=== PATIENT | male | born 1945 | race Caucasian/White ===

== ENCOUNTER → 2019-10-28 13:59 | Outpatient (CLI) | payer MEDICARE, SELFPAY ==
--- NOTE | ~2019-10-28 | XR_ITS ---
XR foot LT min 3V DATE: 10/28/2019 14:28 INDICATION: Left great toe pain following injury TECHNIQUE: 4 views COMPARISON: None FINDINGS: There is a nondisplaced transverse fracture at the junction of the metaphysis and proximal shaft of the distal phalanx of the great toe. There is a probable old fracture at the metaphysis of the proximal phalanx of the fifth toe; recommen d clinical correlation for point tenderness at the proximal phalanx to exclude subtle nondisplaced ac [place] fracture. No other fracture or dislocation is evident. There is mild plantar and more prominent posterior calcaneal enthesopathy. Anterior and posterior tibial artery calcifications. IMPRESSION: Recent transverse nondisplaced fracture of the distal phalanx of the great toe Probable old fracture of the proximal phalanx of the fifth toe Osteopenia Calcaneal enthesopathy Reviewed, dictated and finalized at location B. IMPRESSION: Recent transverse nondisplaced fracture of the distal phalanx of th e great toe Probable old fracture of the proximal phalanx of the fifth toe Osteopenia Calcaneal enthesopathy
== END ==
PROVIDERS: PCP Family Medicine Adolescent Medicine; Visit Provider Physician Assistant
DX: M85.872 Other specified disorders of bone density and structure, left ankle and foot (principal); M77.32 Calcaneal spur, left foot
CPT/HCPCS: 73630

== ENCOUNTER 2021-03-01 16:30 | Outpatient (CLI) | payer MEDICARE, SELFPAY ==
[2021-03-01 17:23] LABS: Hematocrit 39.7 % (42.0-52.0); Hemoglobin 12.6 g/dL (14.0-18.0); Mean Corpuscular HGB Conc 31.7 g/dl (32-36); Mean Corpuscular Hemoglobin 30.7 pg (26-34); Mean Corpuscular Volume 96.6 fl (80-100); Mean Platelet Volume 10.5 fl (7.4-10.4); Platelet Count Result 305 k/mm3 (150-375); Red Blood Count 4.11 M/mm3 (4.6-6.20); Red Cell Distribution Width 14.9 % (11.5-14.5); White Blood Count 10.8 K/mm3 (4.5-10.0)
[2021-03-01 17:40] LABS: CRP < 0.5 mg/dL (<1.0)
[2021-03-01 18:45] LABS: Erythrocyte Sedimentation Rate 21 mm/hr (0-20)
== END 2021-03-01 16:31 | disposition home or self-care (01) ==
PROVIDERS: PCP Family Medicine Adolescent Medicine; Visit Provider Orthopaedic Surgery
DX: M25.461 Effusion, right knee (principal)
CPT/HCPCS: 36415; 85027; 85652; 86140

== ENCOUNTER 2021-03-01 17:27 | Outpatient (NON) | payer MEDICARE, SELFPAY ==
[2021-03-01 22:06] LABS: Source Synovial Fluid Synovial fluid
[2021-03-01 22:07] LABS: Appearance Synovial Fluid Hazy (Clear); Color Synovial Fluid Red (Colorless)
[2021-03-01 22:08] LABS: Lymphocytes Synovial Fluid 82 %; Macrophages Synovial Fluid 1 %; Monocytes Synovial Fluid 12 %; Neutrophils Synovial Fluid 5 % (0-25); Nucleated Cell Synovial Fluid 571 /uL (0-200); RBC Synovial Fluid 11703 /uL (0-0)
== END 2021-03-01 17:28 | disposition home or self-care (01) ==
PROVIDERS: PCP Family Medicine Adolescent Medicine; Visit Provider Orthopaedic Surgery
DX: M25.461 Effusion, right knee (principal)
CPT/HCPCS: 36415; 85027; 85652; 86140; 87070; 87075; 87102; 87205; 87206; 89051

== ENCOUNTER 2021-03-23 12:23 | Outpatient (CLI) | payer MEDICARE, SELFPAY ==
--- NOTE | ~2021-03-23 | MR_ITS ---
EXAMINATION: MR thoracic spine wo con DATE: 03/23/2021 14:13 INDICATION: Bilateral numbness and distal weakness of legs. TECHNIQUE: Magnetic resonance imaging (MRI) of the thoracic spine was performed without intravenous c ontrast. Sagittal localizer T1-weighted FSE of the cervical spine was obtained. Thoracic spine sequen fabiola included sagittal T2-weighted FSE, sagittal T1-weighted FSE, sagittal T2-weighted FS FSE, and axi al T2-weighted FSE. COMPARISON: Chest 2 views 03/02/2011 FINDINGS: There is kyphosis of thoracic spine. There is mild chronic anterior wedging of T7 and T8 ve rtebral bodies. There is 2 mm anterolisthesis of T1 on T2. Intervertebral disc heights are normal. Th ere are disc calcifications at T7-T8. At T9-T10, there is a left central protrusion with mild central canal stenosis. There is multilevel mild facet joint osteoarthritis. At T5-T6 on the left, there is severe facet joint osteoarthritis. There is mild right neural foraminal stenosis at T2-T3 and moderat e left neural foraminal stenosis at T5-T6. The spinal cord signal intensity is normal. IMPRESSION: 1. Mild thoracic spondylosis. Reviewed, dictated and finalized at location A. EL KILN FIRER
--- NOTE | ~2021-03-23 | MR_ITS ---
. EXAMINATION: MR lumbar spine wo con DATE: 03/23/2021 14:13 INDICATION: Bilateral numbness and distal weakness of legs. TECHNIQUE: Magnetic resonance imaging (MRI) of the lumbar spine was performed without intravenous con trast. Sequences included sagittal T2-weighted FSE, sagittal T2-weighted FS FSE, sagittal T1-weighted FSE, and axial T2-weighted FSE. COMPARISON: None FINDINGS: There is 7 degrees dextrocurvature of thoracic lumbar spine. There is 3 mm retrolisthesis o f L1 on L2 and 5 mm retrolisthesis of L2 on L3. Vertebral body heights are normal. There is moderatel y decreased disc height at L1-L2, severely decreased disc height at L2-L3, and mildly decreased disc height at L3-L4 with endplate remodeling. The distal spinal cord signal intensity is normal. The conu s medullaris is at T12. The following disc levels are specifically discussed: L1-L2: The disc is bulging. There is mild right and moderate left facet joint osteoarthritis. There i s mild bilateral neural foraminal stenosis. There is mild central canal stenosis. L2-L3: The disc is bulging and has an annular fissure. There is moderate and severe left facet joint osteoarthritis. There is moderate bilateral neural foraminal stenosis. There is mild central canal st enosis. L3-L4: The disc is bulging and has an annular fissure. There is severe bilateral facet joint osteoart hritis. There is moderate bilateral neural foraminal stenosis. There is mild central canal stenosis. L4-L5: The disc is bulging and has an annular fissure. There is moderate bilateral facet joint osteoa rthritis. There is mild bilateral neural foraminal stenosis. There is mild central canal stenosis. L5-S1: The disc is bulging and has an annular fissure. There is severe bilateral facet joint osteoart hritis. There is mild lateral neural foraminal stenosis. There is no central canal stenosis. IMPRESSION: 1. Severe lumbar spondylosis. Reviewed, dictated and finalized at location A. 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
--- NOTE | ~2021-03-23 | MR_ITS ---
EXAMINATION: MR cervical spine wo con DATE: 03/23/2021 14:13 INDICATION: Bilateral numbness and distal weakness in the legs. TECHNIQUE: Magnetic resonance imaging (MRI) of the cervical spine was performed without intravenous c ontrast. Sequences included sagittal T2-weighted FSE, sagittal T2-weighted FS FSE, sagittal T1-weight ed FSE, axial MERGE, and axial T2-weighted FSE. COMPARISON: None FINDINGS: There is 2 mm retrolisthesis of C4 on C5 and 2 mm anterolisthesis of C5 on C6. Vertebral velasquez dy heights are normal. There is mildly decreased disc height at C4-C5, C5-C6, C6-C7, and C7-T1. The s lena cord signal intensity is normal. The following disc levels are specifically discussed: C2-C3: There is a central protrusion. There is no uncovertebral joint osteoarthritis. There is severe bilateral facet joint osteoarthritis. There is mild bilateral neural foraminal stenosis. There is no central canal stenosis. C3-C4: The disc is bulging. There is mild right and moderate left uncovertebral joint osteoarthritis. There is moderate right and severe left facet joint osteoarthritis. There is mild right and moderate left neural foraminal stenosis. There is mild central canal stenosis. C4-C5: The disc is bulging. There is severe bilateral uncovertebral joint osteoarthritis. There is se pramod bilateral facet joint osteoarthritis. There is moderate bilateral neural foraminal stenosis. The re is moderate central canal stenosis with ventral and dorsal indentation of the spinal cord. C5-C6: The disc is bulging. There is severe bilateral uncovertebral joint osteoarthritis. There is se pramod bilateral facet joint osteoarthritis. There is mild bilateral neural foraminal stenosis. There i s mild central canal stenosis. C6-C7: The disc is bulging. There is mild bilateral uncovertebral joint osteoarthritis. There is lamont re bilateral facet joint osteoarthritis. There is mild bilateral neural foraminal stenosis. There is mild central canal stenosis. C7-T1: There is a central protrusion. There is no uncovertebral joint osteoarthritis. There is severe right and mild left facet joint osteoarthritis. There is mild right neural foraminal stenosis. There is no central canal stenosis. IMPRESSION: 1. Moderate cervical spondylosis. Reviewed, dictated and finalized at location A. 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
== END 2021-03-23 12:24 | disposition home or self-care (01) ==
PROVIDERS: PCP Family Medicine Adolescent Medicine; Visit Provider Orthopaedic Surgery
DX: R20.8 Other disturbances of skin sensation (principal); R53.1 Weakness; M47.894 Other spondylosis, thoracic region; M47.896 Other spondylosis, lumbar region; M47.892 Other spondylosis, cervical region
CPT/HCPCS: 72141; 72146; 72148

== ENCOUNTER 2022-02-17 15:59 | Outpatient (CLI) | payer MEDICARE, SELFPAY ==
[2022-02-17 16:17] LABS: Hemoglobin 11.4 g/dL (14.0-18.0); Immature Reticulocyte Fraction 21.2 % (3.0-15.9); Mean Corpuscular HGB Conc 31.7 g/dl (32-36); Mean Corpuscular Hemoglobin 30.3 pg (26-34); Mean Corpuscular Volume 95.7 fl (80-100); Mean Platelet Volume 9.6 fl (7.4-10.4); Platelet Count Result 363 k/mm3 (150-375); Red Blood Count 3.76 M/mm3 (4.6-6.20); Red Cell Distribution Width 16.3 % (11.5-14.5); Reticulocyte Hemoglobin Conten 30.7 pg (28.2-35.7); Reticulocyte Percent 1.79 % (0.7-4.3); Reticulocytes Absolute 0.07 B/L (32.2-175.7); White Blood Count 11.6 K/mm3 (4.5-10.0)
[2022-02-17 17:00] LABS: Alanine Aminotransferase 51 U/L (6-50); Albumin Level 3.9 g/dL (3.5-5.1); Alkaline Phosphatase 151 U/L (38-126); Anion Gap 9 mmol/L (8-16); Aspartate Amino Transferase 85 U/L (17-59); Bilirubin,Total 0.5 mg/dL (0.2-1.3); Blood Urea Nitrogen 23 mg/dL (9-20); Calcium 8.6 mg/dL (8.4-10.2); Carbon Dioxide 30 mmol/L (22-30); Chloride 97 mmol/L (98-107); Estimated Glomerular Filt Rate 46; Glucose 112 mg/dL (65-110); Potassium 4.3 mmol/L (3.4-5.0); Sodium 136 mmol/L (137-145)
[2022-02-17 17:02] LABS: Iron 39 ug/dL (49-181)
[2022-02-17 17:32] LABS: Percent Iron Saturation 14 % (20-50)
[2022-02-17 18:19] LABS: Folic Acid 6.7 ng/mL (2.76->20)
[2022-02-21 08:07] LABS: Methylmalonic Acid 339 nmol/L (87-318)
== END 2022-02-17 16:00 | disposition home or self-care (01) ==
PROVIDERS: PCP Family Medicine Adolescent Medicine; Visit Provider Internal Medicine Hematology & Oncology
DX: D64.9 Anemia, unspecified (principal)
CPT/HCPCS: 36415; 80053; 82607; 82728; 82746; 83540; 83550; 83921; 84238; 85027; 85046

== ENCOUNTER 2022-06-28 10:24 | Outpatient (CLI) | payer MEDICARE, SELFPAY ==
[2022-06-28 10:41] LABS: Basophils Absolute Auto 0.1 K/mm3 (0.0-0.1); Basophils Percent Auto 0.5 % (0.2-1.2); Eosinophils Absolute Auto 0.1 K/mm3 (0-0.3); Eosinophils Percent Auto 1.2 % (0-4.4); Hematocrit 36.7 % (42.0-52.0); Hemoglobin 11.5 g/dL (14.0-18.0); Immature Granulocyte Absolute 0.03 K/mm3 (0.00-0.031); Immature Granulocyte Percent A 0.3 % (0-0.5); Lymphocytes Absolute Auto 1.66 K/mm3 (0.9-3.2); Lymphocytes Percent Auto 18.1 % (18.3-44.2); Mean Corpuscular HGB Conc 31.3 g/dl (32-36); Mean Corpuscular Hemoglobin 30.4 pg (26-34); Mean Corpuscular Volume 97.1 fl (80-100); Monocytes Absolute Auto 0.9 K/mm3 (0.1-0.6); Monocytes Percent Auto 9.8 % (2.6-8.5); Neutrophils Absolute Auto 6.4 K/mm3 (1.3-6.7); Neutrophils Percent Auto 70.1 % (45.5-73.1); Platelet Count Result 247 k/mm3 (150-375); Red Blood Count 3.78 M/mm3 (4.6-6.20); Red Cell Distribution Width 15.5 % (11.5-14.5); White Blood Count 9.2 K/mm3 (4.5-10.0)
[2022-06-28 12:11] LABS: Iron 79 ug/dL (49-181)
[2022-06-28 12:13] LABS: Anion Gap 4 mmol/L (8-16); Blood Urea Nitrogen 28 mg/dL (9-20); Calcium 8.4 mg/dL (8.4-10.2); Carbon Dioxide 31 mmol/L (22-30); Chloride 101 mmol/L (98-107); Estimated Glomerular Filt Rate 49; Glucose 106 mg/dL (65-110); Potassium 4.5 mmol/L (3.4-5.0); Sodium 136 mmol/L (137-145)
[2022-06-28 12:21] LABS: Percent Iron Saturation 26 % (20-50)
[2022-06-28 13:12] LABS: Folic Acid 3.2 ng/mL (2.76->20)
== END 2022-06-28 10:25 | disposition home or self-care (01) ==
LOC: ANHLAB 10:26
PROVIDERS: PCP Family Medicine Adolescent Medicine; Visit Provider Internal Medicine Hematology & Oncology
DX: D64.9 Anemia, unspecified (principal)
CPT/HCPCS: 36415; 80048; 82607; 82728; 82746; 83540; 83550; 85025

== ENCOUNTER 2022-12-23 14:29 | Outpatient (CLI) | payer MEDICARE, SELFPAY ==
[2022-12-23 14:46] LABS: Basophils Absolute Auto 0.1 K/mm3 (0.0-0.1); Basophils Percent Auto 0.7 % (0.2-1.2); Eosinophils Absolute Auto 0.2 K/mm3 (0-0.3); Eosinophils Percent Auto 2.6 % (0-4.4); Hematocrit 35.6 % (42.0-52.0); Hemoglobin 11.8 g/dL (14.0-18.0); Immature Granulocyte Absolute 0.03 K/mm3 (0.00-0.031); Immature Granulocyte Percent A 0.3 % (0-0.5); Mean Corpuscular HGB Conc 33.1 g/dl (32-36); Mean Corpuscular Hemoglobin 32.2 pg (26-34); Mean Platelet Volume 10.2 fl (7.4-10.4); Monocytes Absolute Auto 0.8 K/mm3 (0.1-0.6); Monocytes Percent Auto 9.4 % (2.6-8.5); Neutrophils Absolute Auto 6.1 K/mm3 (1.3-6.7); Platelet Count Result 253 k/mm3 (150-375); Red Blood Count 3.67 M/mm3 (4.6-6.20); Red Cell Distribution Width 14.6 % (11.5-14.5); White Blood Count 8.9 K/mm3 (4.5-10.0)
[2022-12-23 16:26] LABS: Anion Gap 5 mmol/L (8-16); Blood Urea Nitrogen 42 mg/dL (9-20); Calcium 8.5 mg/dL (8.4-10.2); Carbon Dioxide 27 mmol/L (22-30); Chloride 103 mmol/L (98-107); Estimated Glomerular Filt Rate 42; Glucose 108 mg/dL (65-110); Potassium 4.4 mmol/L (3.4-5.0); Sodium 135 mmol/L (137-145)
[2022-12-23 16:37] LABS: Immunoglobulin A 181 mg/dL (70-400); Immunoglobulin G 1432 mg/dL (700-1600); Immunoglobulin M 57 mg/dL (40-230)
[2022-12-23 16:37] LABS: Iron 83 ug/dL (49-181)
[2022-12-23 16:49] LABS: Percent Iron Saturation 29 % (20-50)
[2022-12-23 17:33] LABS: Folic Acid 3.5 ng/mL (2.76->20)
[2022-12-28 15:46] LABS: Abnormal Protein Band 1 0.7 g/dL; Albumin 3.1 g/dL (3.8-4.8); Alpha 1 Globulin 0.4 g/dL (0.2-0.3); Alpha 2 Globulin 0.9 g/dL (0.5-0.9); Beta 1 Globulin 0.4 g/dL (0.4-0.6); Gamma Globulin 1.3 g/dL (0.8-1.7); Protein, Total 6.3 g/dL (6.1-8.1)
[2022-12-28 21:38] LABS: Lambda Light Chain 52.6 mg/L (5.7-26.3)
== END 2022-12-23 14:30 | disposition home or self-care (01) ==
LOC: ANHLAB 14:32
PROVIDERS: PCP Family Medicine Adolescent Medicine; Visit Provider Internal Medicine Hematology & Oncology
DX: D64.9 Anemia, unspecified (principal); D47.2 Monoclonal gammopathy
CPT/HCPCS: 36415; 80048; 82607; 82728; 82746; 82784; 83540; 83550; 83883; 84155; 84165; 85025

== ENCOUNTER 2023-06-26 10:48 | Outpatient (CLI) | payer MEDICARE, SELFPAY ==
[2023-06-26 11:07] LABS: Basophils Absolute Auto 0.1 K/mm3 (0.0-0.1); Basophils Percent Auto 0.6 % (0.2-1.2); Eosinophils Absolute Auto 0.2 K/mm3 (0-0.3); Eosinophils Percent Auto 1.8 % (0-4.4); Immature Granulocyte Absolute 0.03 K/mm3 (0.00-0.031); Immature Granulocyte Percent A 0.3 % (0-0.5); Lymphocytes Absolute Auto 1.53 K/mm3 (0.9-3.2); Lymphocytes Percent Auto 17.2 % (18.3-44.2); Mean Corpuscular HGB Conc 32.4 g/dl (32-36); Mean Corpuscular Hemoglobin 32.1 pg (26-34); Mean Corpuscular Volume 99.1 fl (80-100); Monocytes Absolute Auto 0.8 K/mm3 (0.1-0.6); Monocytes Percent Auto 9.2 % (2.6-8.5); Neutrophils Absolute Auto 6.3 K/mm3 (1.3-6.7); Neutrophils Percent Auto 70.9 % (45.5-73.1); Platelet Count Result 293 k/mm3 (150-375); Red Blood Count 3.43 M/mm3 (4.6-6.20); Red Cell Distribution Width 14.6 % (11.5-14.5); White Blood Count 8.9 K/mm3 (4.5-10.0)
[2023-06-26 14:03] LABS: Iron 64 ug/dL (49-181)
[2023-06-26 14:15] LABS: Immunoglobulin A 293 mg/dL (70-400); Immunoglobulin G 1561 mg/dL (700-1600); Immunoglobulin M 61 mg/dL (40-230)
[2023-06-26 14:19] LABS: Percent Iron Saturation 27 % (20-50)
[2023-06-26 14:21] LABS: Alanine Aminotransferase 34 U/L (6-50); Albumin Level 3.3 g/dL (3.5-5.1); Alkaline Phosphatase 163 U/L (38-126); Anion Gap 7 mmol/L (8-16); Aspartate Amino Transferase 41 U/L (17-59); Bilirubin,Total 0.3 mg/dL (0.2-1.3); Blood Urea Nitrogen 34 mg/dL (9-20); Calcium 8.3 mg/dL (8.4-10.2); Carbon Dioxide 23 mmol/L (22-30); Chloride 107 mmol/L (98-107); Estimated Glomerular Filt Rate 39; Glucose 100 mg/dL (65-110); Potassium 4.4 mmol/L (3.4-5.0); Sodium 137 mmol/L (137-145)
[2023-06-26 15:24] LABS: Folic Acid 4.4 ng/mL (2.76->20); Vitamin B12 > 1000.0 pg/mL (239-931)
[2023-06-29 12:08] LABS: Kappa\\Lambda Light Chains 2.89 (0.26-1.65); Lambda Light Chain 89.4 mg/L (5.7-26.3)
[2023-06-29 12:30] LABS: Abnormal Protein Band 2 0.7 g/dL; Albumin 2.9 g/dL (3.8-4.8); Alpha 1 Globulin 0.4 g/dL (0.2-0.3); Beta 1 Globulin 0.3 g/dL (0.4-0.6); Gamma Globulin 1.4 g/dL (0.8-1.7); Protein, Total 6.4 g/dL (6.1-8.1)
== END 2023-06-26 10:49 | disposition home or self-care (01) ==
LOC: ANHLAB 10:50
PROVIDERS: PCP Family Medicine Adolescent Medicine; Visit Provider Internal Medicine Hematology & Oncology
DX: D64.9 Anemia, unspecified (principal)
CPT/HCPCS: 36415; 80053; 82607; 82728; 82746; 82784; 83540; 83550; 83883; 84155; 84165; 85025

== ENCOUNTER 2023-06-30 08:27 | Outpatient (RCR) | payer MEDICARE, SELFPAY ==
--- NOTE | 2023-06-30 09:21 | OPREHPOC ---
Outpatient Therapy Plan of Care This is a Multidisciplinary Plan of Care that may contain components documented by all disciplines (PT, OT, and ST.) PT Problem 1 PT Problem #1 Knowledge Deficit PT Goal 1 Goal patient to demonstrate independence with HEP Target Visit 6 PT Problem 2 PT Problem #2 Impaired Strength PT Goal 1 Goal Patient to demonstrate 4+/5 B LE strength to return to stepping up into boat and getting up from at chair at PLOF Target Visit 12 PT Problem 3 PT Problem #3 Impaired Functional Mobil PT Goal 1 Goal 1. Patient to complete 600' during 6 min walk test with least restrictive device 2. Patient to demonstrate 5TSTS in less than 15 seconds to decrease fall risk at home 3. Patient to report no falls since start of PT Target Visit 12
--- NOTE | 2023-06-30 09:21 | PTOPEVAL1 ---
Assessment and note entered by Marian Ferguson DPT Evaluation Information Assessment Status Evaluation Diagnosis weakness Onset 06/26/23 Subjective Information Patient reports over the last 3 weeks he has noticed a significant increase in B LE weakness. He reports that all the hospital could find was that he had pneumonia. He reports prior he was walking with a cane and now he is using a rollator a majority of the time. He reports he has improved since onset of weakness. He reports difficulty with getting out of the chair, ambulating prolonged distances, and stepping up into his boat. He reports he has a history of B knee pain. He would like to return to stepping up into his boat for fishing. Reported Pain Level Pain Score 1: Self Report Assessment PT Clinical Summary Mr. Charles is a 78 year old male who presents to PT with weakness. He demonstrates decreased B LE strength, impaired balance and impaired gait limiting his ability to ambulate prolonged distances, stand up from a chair and step up into his boat and on his tractor. He would benefit from skilled PT to address impairments and return to PLOF. Plan of Care Interventions Gait Training,Hot Pack/Cold Pack,Neuro Re- education,Patient/Caregiver Educati,Therapeutic Activities,Therapeutic Exercise PT Services Indicated Yes Treatment Frequency and 2x weekly for 12 visits Duration These treatments will address the objective and functional deficits as defined above. The patient will be advanced safely and appropriately in order for the patient to progress towards his/her prior level of function. Additional exercises will be introduced and as well as a comprehensive home exercise program upon discharge, if needed, ?to ensure carryover of functional gains achieved in the clinic. This treatment plan has been reviewed and agreement upon by the patient.
--- NOTE | 2023-08-04 10:47 | OPREHPOC ---
Outpatient Therapy Plan of Care This is a Multidisciplinary Plan of Care that may contain components documented by all disciplines (PT, OT, and ST.) PT Problem 1 PT Problem #1 Knowledge Deficit PT Goal 1 Goal patient to demonstrate independence with HEP Target Visit 6 Progress Met PT Problem 2 PT Problem #2 Impaired Strength PT Goal 1 Goal Patient to demonstrate 4+/5 B LE strength to return to stepping up into boat and getting up from at chair at PLOF Target Visit 12 Progress Not Met Comment progressed towards goal PT Problem 3 PT Problem #3 Impaired Functional Mobil PT Goal 1 Goal 1. Patient to complete 600' during 6 min walk test with least restrictive device, not met 2. Patient to demonstrate 5TSTS in less than 15 seconds to decrease fall risk at home, not met 3. Patient to report no falls since start of PT, met Target Visit 12 Progress Partially Met
--- NOTE | 2023-08-04 10:47 | PTOPEVAL1 ---
Assessment and note entered by Marian Ferguson DPT Evaluation Information Assessment Status Re-evaluation Diagnosis weakness Onset 06/26/23 Subjective Information patient reports he is more confident since start of PT. he reports he is able to get up on both tractors and was able to get into his boat. he reports he still has poor endurance. he reports he is only able to stand for 5 minutes before needing to sit. he reports he is compliant with HEP Reported Pain Level Pain Score 0: Self Report Assessment PT Clinical Summary Mr. Charles attended 12 visits of skilled PT with good progress towards goals. Patient partially met goals. He demonstrates improved balance with 5TSTS testing and improved LE strength. He reports he has been able to step up into his tractor and into his boat with improvements. He is independent with HEP and is appropriate for DC at this time. Plan of Care Interventions Gait Training,Hot Pack/Cold Pack,Neuro Re- education,Patient/Caregiver Educati,Therapeutic Activities,Therapeutic Exercise PT Services Indicated No Treatment Frequency and DC to independent HEP Duration These treatments will address the objective and functional deficits as defined above. The patient will be advanced safely and appropriately in order for the patient to progress towards his/her prior level of function. Additional exercises will be introduced and as well as a comprehensive home exercise program upon discharge, if needed, ?to ensure carryover of functional gains achieved in the clinic. This treatment plan has been reviewed and agreement upon by the patient.
== END 2023-08-04 10:53 | disposition home or self-care (01) ==
LOC: CHSPT 08:27
PROVIDERS: Visit Provider Family Medicine Adolescent Medicine
DX: M62.81 Muscle weakness (generalized) (principal)
CPT/HCPCS: 97110; 97150; 97161; 97530

== ENCOUNTER 2023-12-29 09:59 | Outpatient (CLI) | payer MEDICARE, SELFPAY ==
[2023-12-29 10:22] LABS: Basophils Absolute Auto 0.1 K/mm3 (0.0-0.1); Basophils Percent Auto 0.6 % (0.2-1.2); Eosinophils Absolute Auto 0.2 K/mm3 (0-0.3); Eosinophils Percent Auto 1.8 % (0-4.4); Hematocrit 33.6 % (42.0-52.0); Hemoglobin 10.8 g/dL (14.0-18.0); Immature Granulocyte Absolute 0.03 K/mm3 (0.00-0.031); Immature Granulocyte Percent A 0.3 % (0-0.5); Lymphocytes Absolute Auto 1.78 K/mm3 (0.9-3.2); Lymphocytes Percent Auto 18.9 % (18.3-44.2); Mean Corpuscular HGB Conc 32.1 g/dl (32-36); Mean Corpuscular Volume 99.4 fl (80-100); Mean Platelet Volume 10.1 fl (7.4-10.4); Monocytes Absolute Auto 0.8 K/mm3 (0.1-0.6); Monocytes Percent Auto 8.6 % (2.6-8.5); Neutrophils Absolute Auto 6.6 K/mm3 (1.3-6.7); Neutrophils Percent Auto 69.8 % (45.5-73.1); Platelet Count Result 236 k/mm3 (150-375); Red Blood Count 3.38 M/mm3 (4.6-6.20); Red Cell Distribution Width 14.6 % (11.5-14.5); White Blood Count 9.4 K/mm3 (4.5-10.0)
[2023-12-29 13:29] LABS: Alanine Aminotransferase 28 U/L (6-50); Albumin Level 3.3 g/dL (3.5-5.1); Alkaline Phosphatase 171 U/L (38-126); Anion Gap 7 mmol/L (4-12); Aspartate Amino Transferase 33 U/L (17-59); Bilirubin,Total 0.3 mg/dL (0.2-1.3); Blood Urea Nitrogen 48 mg/dL (9-20); Calcium 8.1 mg/dL (8.4-10.2); Carbon Dioxide 24 mmol/L (22-30); Chloride 102 mmol/L (98-107); Estimated Glomerular Filt Rate 28; Glucose 90 mg/dL (65-110); Potassium 4.6 mmol/L (3.4-5.0); Sodium 133 mmol/L (137-145)
[2023-12-29 13:36] LABS: Immunoglobulin A 210 mg/dL (70-400); Immunoglobulin G 1390 mg/dL (700-1600); Immunoglobulin M 75 mg/dL (40-230)
[2024-01-02 11:39] LABS: Kappa\\Lambda Light Chains 3.98 (0.26-1.65); Lambda Light Chain 82.5 mg/L (5.7-26.3)
[2024-01-08 08:19] LABS: Abnormal Protein Band 1 0.7 g/dL (NONE DETECTED); Albumin 2.7 g/dL (3.8-4.8); Alpha 1 Globulin 0.4 g/dL (0.2-0.3); Beta 1 Globulin 0.4 g/dL (0.4-0.6); Gamma Globulin 1.3 g/dL (0.8-1.7)
== END 2023-12-29 10:00 | disposition home or self-care (01) ==
LOC: ANHLAB 10:01
PROVIDERS: PCP Family Medicine Adolescent Medicine; Visit Provider Internal Medicine Hematology & Oncology
DX: D47.2 Monoclonal gammopathy (principal)
CPT/HCPCS: 36415; 80053; 82784; 83883; 84155; 84165; 85025

== ENCOUNTER 2024-02-16 10:12 | Outpatient (CLI) | payer MEDICARE, SELFPAY ==
--- NOTE | ~2024-02-16 | US_ITS ---
Renal-Bladder ultrasound Clinical History: Chronic kidney disease Technique: Real-time sonographic imaging of the kidneys and urinary bladder was performed. Findings: The right kidney measures 10.2 cm in length and the left kidney measures 9.8 cm. There is n o hydronephrosis or renal calculus identified. Renal cortical echogenicity is increased. Bilateral re nal cysts are present. The urinary bladder is not imaged. Impression: Echogenic kidneys suggest chronic medical renal disease. Bilateral renal cysts. Reviewed, dictated and finalized at location . GER TRUCK Impression: Echogenic kidneys suggest chronic medical renal disease. Bilateral renal cysts.
== END 2024-02-16 10:13 | disposition home or self-care (01) ==
LOC: MICIMG 10:13
PROVIDERS: PCP Family Medicine Adolescent Medicine; Visit Provider Internal Medicine Nephrology
DX: N18.4 Chronic kidney disease, stage 4 (severe) (principal); N28.1 Cyst of kidney, acquired
CPT/HCPCS: 76775

== ENCOUNTER 2024-08-02 13:05 | Outpatient (CLI) | payer MEDICARE, SELFPAY ==
--- OUTSIDE RECORDS SUMMARY | 2024-08-02 13:09 | XMS_ITS | Continuity of Care Document ---
Author Organization [facility] Address [address] [place] [address] Phone Care Team Providers Care Industrial Economist Name Role Phone Moody CASEY DE Terence Unavailable Unavailab le Allergies, Adverse Reactions, Alerts Substance Reaction Status Criticality No Known Allergies Active No Inform ation Medications Medication Instructions Dosage Effective Dates (start - stop) Status Comments hydrocodone 5 mg-acetaminophen 325 mg tablet take 1-2 tablet by oral route every 4 hours as needed for post operative pain control - Active BUMETANIDE (unknown strength) Not Available - Active ALLOPURINOL (unknown strength) Not Available - Active ASPIRIN EC (unknown strength) Not Available - Active ATENOLOL (unknown strength) Not Available - Active DICLOFENAC SODIUM (unknown strength) Not Available - Active fiber oral powder - Active LEVOTHYROXINE SODIUM (unknown strength) Not Available - Active MAGNESIUM (unknown strength) Not Available - Active MONTELUKAST SODIUM (unknown strength) Not Available - Active multivitamin tablet - Active NEURONTIN (unknown strength) Not Available - Active POTASSIUM CHLORIDE (unknown strength) Not Available - Active SILDENAFIL CITRATE (unknown strength) Not Available - Active VITAMIN B-12 (unknown strength) Not Available - Active ZYRTEC (unknown strength) Not Available - Active Procedures Procedure Date X-ray exam knee, 3 views Global/Postop followup visit X-ray exam knee, 3 views Global/Postop followup visit X-ray exam knee, 3 views Global/Postop followup visit Sep-21-2022 Disability Form Revision Total Knee All Comp Office/outpatient visit,tu, mod 2021 X-ray exam knee, 4+ views Office/outpatient visit,[facility] Advance Directives Directive Yes / No Effective Date File Name No Information Encounters Encounter Description Practice Location Reason(s) For Visit Diagnoses Date Provider Providers Copied on Encounter [facility], [address] [address], [place], [place], [id number], [place] tel:[phone] [email or web address] No Information 3 Moody Pratt. [address] [facility], [facility] [address], [place], [place], [id number] , [place]. tel: [phone] [facility], [address], [id number], [place] [phone] [facility] right knee (chief complaint) Pain in right kneePresence of right artificial knee joint 2 Moody Pratt. [address] [facility], [address], [place], [place], [id number] , [place]. tel: [phone] Referring Provider: Terence Hameed, [address] [facility] [address], [place], [address]. tel:[phone] [facility], [address], [id number], [place] tel:[phone] [facility] Right Knee (chief complaint) Presence of right artificial knee joint 2 Moody Pratt. [address] [facility], [place], [place], [id number] , [place]. tel: [phone] Referring Provider: Terence Hameed, [address] [facility] [address], [place], [address]. tel:[phone] [facility], [address], [id number], [place] tel:[phone] [facility] right knee (chief complaint) Presence of right artificial knee jointPain in right knee Sep-2 2 Moody Pratt. [address] [facility], [address], [place], [place], [id number] , [place]. tel: [phone] Referring Provider: Terence Hameed, [address] [facility] [address], [place], [address]. [phone] [facility], [address], [place], [place], [id number], [place] tel:[phone] [facility] No Information Sep-1 2 Gonzalo Robbie er. [address] [facility], [address], [place], [place], [address] , [place]. tel: [phone] [facility], [address], [place], [place], [id number], [place] [phone] [facility] No Information Sep-0 2 Gonzalo Robbie er. [address] [facility], [address], [place], [place], [address] , [place]. tel: [phone] Referring Provider: Janes Silva, [address] [facility] [address], [place], [address]. 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 [address] [facility], [address], [place], [place], [address] , [place]. 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 [address] [facility], [address], [place], [place], [address] , [place]. 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 [address] [facility], [address] [facility], [place], [place], [address] , [place]. 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 [address] [facility], [address] [facility], [place], [place], [id number] , [place]. tel: [phone] Referring Provider: Janes Silva, [address] [facility] [address] [facility], [place], [address]. 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 [address] [place] [address], [address] [address], [place], [place], [id number] , [place]. 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 [address] [place] [address], [address] [address], [place], [place], [id number] , [place]. tel: [phone] Office/outpat ient visit,new, [facility], [address] [place] [address], [id number], [place] tel:[phone] [facility] right knee (chief complaint) Pain in right kneeMech loosening of internal right knee prosthetic joint, init Gonzalo Avalos sergey. [address] [facility], [address], [place], [place], [address] , . tel: [phone] Referring Provider: Janes Silva, [address] [facility] [address], [place], [address]. tel:[phone] Family History Family Member Type Diagnosis Age At Onset Sister Problem (finding) Osteoarthritis Mother Problem (finding) Diabetes Father Problem (finding) Heart Disease Father Problem (finding) Gout Mother Problem (finding) Osteoarthritis Payers Payer name Insurance type Covered democrat ID Authoriza tion(s) Medicare [place] W[place] Part B MB [id number] AARP CI [id number] Social History Type Description Quantity Date Captured Comments Alcohol Use Details Unknown Caffeine Use Details Unknown Tobacco Use Status No Information Smoking Status No Information Sex Male Chief Complaint And Reason For Visit No Information Reason For Referral Reason For Referral No Information Plan Of Treatment Date Type Action Status Referral Referred To: [facility] Ordered: Referrals: Neurology. [facility]. Location: [facility]. Evaluate and treat ordered Referral Ordered: X-ray exam knee, 3 views RT knee ordered Referral Ordered: X-ray exam knee, 4+ views RT knee ordered Future Order: Lab Order C Reacti ve Protein (CRP), Ordered on: Ordered Future Order: Lab Order CBC W/Di ff (CBC w/Diff), Ordered on: Ordered Future Order: Lab Order Comprehe nsive Metabolic Profile (CMP), Ordered on: Ordered Future Order: Lab Order Hemoglob in A1c (HG A1c), Ordered on: Ordered Future Order: Lab Order Sed Rate (Sed Rate), Ordered on: Ordered History Of Present Illness Encounter Date Complaint History Of Prese nt Illness knee Sanjeev is a radha ant 77-year-old male who presents to the office today for ongoing postop evaluation of his right total knee arthroplasty revision of femoral and tibial components with metadiaphyseal tibial cone, 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 Denies injury, trauma, or fall since last office visit. Denies fever, chills, generalized feelings of illness or malaise. He is to participating in physical therapy working on strengthening and transition to ambulation. He is ambulating with the use of a walker in public, and utilizes a cane at home. Denies right knee pain at this time. Indicates pain is only present with ascending and descending stairs. He is not utilizing interventions for pain control. He is concerned about chronic ongoing general tiredness. He did follow-up with wound care for consultation, and is treating the venous stasis ulcers with their recommended supplies. He is ambulating with the use of a walker at today's office visit, and accompanied to the visit by his . 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 States sustained an injury to his right anterior jackson resulting in nonhealing wound that he is started treating with medications provided by wound care from a previous intervention. Denies fever, chills, generalized feelings of illness or malaise. He is still utilizing Eliquis. He is participating in physical therapy and feels that it is going very well. He endorses mild aching intermittent, diffusely located pain that is worsened with laying in the wrong direction. Pain is managed with the use of acetaminophen. He is still experiencing significant fatigue. He is wheelchair-bound at today's office visit and accompanied to the visit by his . 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 Denies injury, trauma, or fall since surgical intervention. Denies fever, chills, generalized feelings of illness or malaise. He is compliant with the use of Eliquis. He is participating in physical therapy and feels it is going very well. Indicates desire to ambulate on a more frequent basis and increased distance. He endorses mild to moderate intermittent diffuse right knee pain that is worsened with physical therapy and increases to activity. His pain is managed with the use of diclofenac, oxycodone, acetaminophen. Indicates reduction of use of narcotic pain medications over the last 3 days. Is concerned over his chronic fatigue. Wheelchair-bound at today's office visit, and indicates he utilizes a walker around the house and in therapy. He is accompanied to the visit today by his . right knee Sanjeev is a 76 ye ar-old male who presents to the office for evaluation of right knee pain. right knee Sanjeev is a 76 ye ar-old male who presents to the office for evaluation of right knee pain. He presents today for evaluation of his right prosthetic knee pain he is 6 foot tall weighs 310 pounds. His current BMI is 42. He underwent right total knee arthroplasty about 5 years ago this is an Jonathon attune prosthesis he has pain in varus in his right knee. He was referred for consideration of revision pain is constant he has stiffness weakness night pain and decreased motion pain is better with resting and. Pain is worse with standing and climbing stairs he is currently limping and using a cane. 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 He has had bilateral knee replacements by Dr. 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 He does have lymphedema in his lower extremities. He also has severe neuropathy and is on gabapentin. 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 Arana. And return negative for infection. Functional Status Date Functional Assessmen t No Information Instructions Date Instruction Additional Infor mation No Information Assessments Type Assessment Date No Information Patient Care Teams Name Effective Dates (start - stop) Status Members No Information
--- OUTSIDE RECORDS SUMMARY | 2024-08-02 13:09 | XMS_ITS | Clinical Summary ---
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 Helper Name Role Phone Chriss Jasso MD Primary Care Prov ider Duke Murillo MD Unavailable [phone] Janes Sánchez MD Unavailable [phone] Allergies No known active allergies Medications allopurinol (ZYLOPRIM) 300 mg tablet Take 1 tablet (300 mg total) by mouth daily 7 Active levothyroxine (SYNTHROID) 125 mcg tablet Take 1 tablet (125 mcg total) by mouth information assistant before breakfast Active montelukast (SINGULAIR) 10 mg tablet Take 1 tablet (10 mg total) by mouth nightly Active fluticasone propionate (FLONASE) 50 mcg/actuation nasal spray Administer 2 sprays into each nostril daily as needed for rhinitis Active cetirizine (ZyrTEC) 10 mg tablet Take 1 tablet (10 mg total) by mouth daily Active ferrous sulfate 325 mg (65 mg of elemental iron) tabletIndications :Iron Deficiency Anemia Take 1 tablet (325 mg total) by mouth daily with breakfast Active cyanocobalamin (Vitamin B-12) 1,000 mcg tabletIndications :Prevention of Vitamin B12 Deficiency Take 1 tablet (1,000 mcg total) by mouth every other day Active amoxicillin (AMOXIL) 500 mg tablet/capsule Take 4 caps (2000 mg) 1 hour prior to procedure. 4 Active Eliquis 5 mg tabletIndications :Paroxysmal atrial fibrillation (HCC) TAKE 1 TABLET BY MOUTH TWICE DAILY 180 tablet 3 5 Active bumetanide (BUMEX) 1 mg tablet TAKE 1 TABLET BY MOUTH DAILY 90 tablet 3 5 Active Active Problems Problem Noted Date Diagnosed Date Herpes labialis 06/14/2023 Left upper quadrant abdominal mass 06/07/2023 Pneumonia 06/06/2023 Sepsis due to pneumonia 06/06/2023 Weakness 06/06/2023 Gout, unspecified 12/16/2021 Hyperlipidemia, unspecified 12/16/2021 Heart failure, unspecified 12/16/2021 Hypothyroidism, unspecified 12/16/2021 Morbid (severe) obesity due to excess calories 0 12/16/2021 Other chronic pain 12/16/2021 Presence of left artificial knee joint Presence of prosthetic heart valve 12/16/2021 Unspecified atrial flutter 12/16/2021 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 Continue same therapy. Continue diet and exercise. Assessment & Plan (03/16/2022 11:45 AM LEAD INSTRUCTOR/FLIGHT ATTENDANT): Stable, mild-moderate coronary disease without angina. Continue same therapy. Continue diet and exercise. Assessment & Plan (10/14/2021 2:24 PM CDT): Stable, mild-moderate coronary disease only, without angina. Continue same therapy. Continue diet and exercise. Assessment & Plan (01/05/2021 10:51 AM CDT): Stable, mild-moderate coronary disease only, without angina. Continue same therapy. Continue diet and exercise. Assessment & Plan (12/31/2019 10:30 AM CDT): Stable, mild-moderate coronary disease without angina. Continue same therapy. Continue diet and exercise. Assessment & Plan (12/25/2018 12:43 PM CDT): Stable, mild-moderate coronary disease without angina. Continue same therapy. Continue diet and exercise. Assessment & Plan (06/26/2018 2:40 PM CDT): Stable, mild-moderate coronary disease without angina. Continue same therapy. Continue diet and exercise. Paroxysmal atrial fibrillation 06/26/2018 Assessment & Plan (03/06/2023 10:44 AM LEAD INSTRUCTOR/FLIGHT ATTENDANT): Stable, maintaining sinus rhythm, and he remains on Eliquis. Continue same therapy. Assessment & Plan (03/16/2022 11:45 AM LEAD INSTRUCTOR/FLIGHT ATTENDANT): Stable, rate controlled, and he remains on Eliquis. Continue same therapy. Assessment & Plan (10/14/2021 2:25 PM CDT): Stable, now persistent atrial fibrillation, rate controlled off atenolol, and he remains on Eliquis. Continue same therapy. Assessment & Plan (01/05/2021 10:51 AM CDT): Stable, maintaining sinus rhythm after postoperative PAF, without recurrence. Continue same therapy. Assessment & Plan (12/31/2019 10:29 AM CDT): Stable, maintaining sinus rhythm after postoperative PAF, and he is status post excision of the left atrial appendage. Continue same therapy. Assessment & Plan (12/25/2018 12:43 PM CDT): Stable, maintaining sinus rhythm after postoperative paroxysmal atrial fibrillation. He has had excision of left atrial appendage. Continue same therapy. Assessment & Plan (06/26/2018 2:41 PM CDT): Stable, maintaining sinus rhythm after paroxysmal atrial fibrillation. As above, I stopped amiodarone and Eliquis, and resumed atenolol 50 mg daily and aspirin 81 mg daily. His rhythm will be monitored closely in cardiac rehab. Essential hypertension, benign 06/26/2018 Assessment & Plan (03/06/2023 10:45 AM LEAD INSTRUCTOR/FLIGHT ATTENDANT): Well controlled. Continue same therapy. Continue diet and exercise. Assessment & Plan (03/16/2022 11:45 AM LEAD INSTRUCTOR/FLIGHT ATTENDANT): Blood pressure is well controlled. Continue same therapy. Continue diet and exercise. Assessment & Plan (10/14/2021 2:25 PM CDT): Blood pressure is well controlled. Continue same therapy. Continue diet and exercise. Assessment & Plan (01/05/2021 10:52 AM CDT): Blood pressure is superb. Continue same therapy. Continue diet and exercise. Assessment & Plan (12/31/2019 10:30 AM CDT): Blood pressure is superb. Continue same therapy. Continue diet and exercise. Assessment & Plan (12/25/2018 12:44 PM CDT): Blood pressure is well controlled. Continue same therapy. Continue diet and exercise. Assessment & Plan (06/26/2018 2:41 PM CDT): Blood pressure is well controlled in general. Continue same therapy. Continue diet and exercise. His blood pressure will be monitored carefully in cardiac rehab. LBBB (left bundle branch block) 06/26/2018 S/P MVR (mitral valve repair) 05/30/2018 Assessment & Plan (03/06/2023 10:44 AM LEAD INSTRUCTOR/FLIGHT ATTENDANT): Stable status post mitral valve repair, well compensated. Continue same therapy. Assessment & Plan (03/16/2022 11:44 AM LEAD INSTRUCTOR/FLIGHT ATTENDANT): Stable status post mitral valve repair. He remains well compensated. Continue same therapy. Assessment & Plan (10/14/2021 2:24 PM CDT): Stable status post mitral valve repair, asymptomatic. Continue same therapy. Assessment & Plan (01/05/2021 10:51 AM CDT): Stable status post mitral valve repair, asymptomatic. Continue same therapy. S/P AVR (aortic valve replacement) 05/22/2018 Assessment & Plan (03/06/2023 10:43 AM LEAD INSTRUCTOR/FLIGHT ATTENDANT): Stable status post bioprosthetic aortic valve replacement, asymptomatic. I made no change in his excellent medical regimen today. I asked him to follow up with me annually, or sooner if needed. I again advised him to diet and exercise regularly. Assessment & Plan (03/16/2022 11:44 AM LEAD INSTRUCTOR/FLIGHT ATTENDANT): Stable status post bioprosthetic aortic valve replacement, asymptomatic. I made no change in his excellent medical regimen today. I asked him to follow up with me annually, or sooner if needed. I again advised him to diet and exercise regularly to lose weight. Assessment & Plan (10/14/2021 2:24 PM CDT): Stable status post bioprosthetic aortic valve replacement, asymptomatic. I made no change in his excellent medical regimen today. I asked him to follow up with me in 6 months, or sooner if needed. I again advised him to diet and exercise regularly. He can be cleared to undergo the planned knee replacement at acceptable risk from the cardiac standpoint. Assessment & Plan (01/05/2021 10:49 AM CDT): Stable status post bioprosthetic aortic valve replacement, asymptomatic. I made no change in his excellent medical regimen today. I asked him to follow up with me annually, or sooner if needed. I again advised him to diet and exercise regularly. Chronic diastolic heart failure 05/19/2018 JESSICA (obstructive sleep apnea) 04/27/2018 Neuropathy 04/26/2018 Assessment & Plan (10/29/2020 10:36 AM CDT): 75 year old with what sounds like 10 years of idiopathic sensorimotor polyneuropathy. It has gradually progressed to level of knees and he is noticing some paresthesias in his hands and he has some mild distal toe and ankle weakness. Wants to know if there are new/better medications than gabapentin, although reports gabapentin 600 BID generally controls symptoms. I did not advise any changes at this time. He should follow up with podiatry for foot care Agree with efforts for balance/fall prevention and situational use of cane for safety. He has grab bar in shower. He is using cane and has night lights when getting up overnight. I suggested topical numbing creams PRN for nights of breakthrough pain, but he is otherwise happy with gabapentin 600 BID and can continue this. I suggested 1 year follow-up and call if change/issue in interim I suggested PCP check B12 level with next labs for monitoring to make sure current oral supplement is adequate but no reported history of this in prior lab work. I would like to obtain Dr. Stephenson's prior notes as well if possible. Monoclonal gammopathy of unknown significance Resolved Problems Problem Noted Date Diagnosed Date Resolved Date Non-rheumatic mitral regurgitation 06/26/2018 02/27/2023 Assessment & Plan (12/31/2019 10:29 AM CDT): Stable status post mitral valve repair. Continue same therapy. Assessment & Plan (12/25/2018 12:43 PM CDT): Stable status post mitral valve repair. Continue same therapy. Assessment & Plan (06/26/2018 2:40 PM CDT): Stable status post mitral valve repair, without symptoms. Continue same therapy. Aortic valve disorder 06/25/20182022 Assessment & Plan (12/31/2019 10:28 AM CDT): Stable status post bioprosthetic aortic valve replacement, asymptomatic. I made no change in his excellent medical regimen today. I asked him to follow up with me annually, or sooner if needed. I again advised him to diet and exercise regularly. Assessment & Plan (12/25/2018 12:42 PM CDT): Stable status post bioprosthetic aortic valve replacement without symptoms. Continue same therapy. I made no change in his excellent medical regimen today. I asked him to follow up with me annually, or sooner if needed. I again advised him to diet and exercise regularly. Assessment & Plan (06/26/2018 2:39 PM CDT): The patient is stable from the cardiac standpoint at this time, status post bioprosthetic aortic valve replacement, mitral valve repair, and excision of the left atrial appendage recently in 04/28. Left ventricular function is well preserved. I stopped amiodarone and Eliquis, and resumed atenolol 50 mg daily and aspirin 81 mg daily. Otherwise, I made no change in his excellent medical regimen today. I asked him to follow up with me in 6 months, or sooner if needed. I advised him to diet and exercise regularly. Cardiac rehab will be started. Nonrheumatic aortic valve stenosis 04/28/2018 02/27/2023 Immunizations Immunization Administration Dates Next Due Influenza, Quad, Adjuvantate d, Intramuscular 01/17/2020 Influenza, Trivalent, High D ose, Split, Preservative Free, Intramuscular 12/20/2018,01/17/2018,12/28/2016,01/12 Influenza, Unspecified 01/03/2018,01/18/2017 Pneumococcal Conjugate, Unspecified 01/19/2016 Surgical History Surgery Date Site/Laterality Comments KNEE ARTHROPLASTY Bilateral CARDIAC VALVE REPLACEMENT 04/10/2018 - 04/09/2019 JOINT REPLACEMENT Mar 2012 and 2016 Left Knee Replacement 2010/ Right TKA 2015 Medical History Medical History Date Comments MGUS (monoclonal gammopathy of unknown significa nce) Hypertension Heart disease 04/2018 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 Neuromuscular disorder (HCC) 2008 Sleep apnea 2018 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 Morbid obesity (HCC) Family History Medical History Relation Name Comments Diabetes Father Ankit Leviner Heart attack Father Ankit Stemmler Arthritis Mother carlos Stemmler Diabetes Mother carlos Stemmler Diabetes Sister Sejal Blank Relation Name Status Comments Father Ankit Lveiner (Age 62) Mother carlos Charles (Age 87) Sister Sejal Dalalkomauricio Social History Tobacco Use Types Packs/Day Years Used Date Smoking Tobacco: Never Smokeless Tobacco: Never Alcohol Use Standard Drinks/Week Comments Yes 0 (1 standard drink = 0.6 oz pur e alcohol) Social Connection and Isolat ion Panel [NHANES] Answer Date Recorded In a typical week, how many times do you talk on the phone with family, friends, or neighbors? More than three times a week 12/14/2021 How often do you get togethe r with friends or relatives? Three times a week 12/14/2021 How often do you attend chur or catholic services? 1 to 4 times per year 12/14/2021 Do you belong to any clubs o r organizations such as buddhism groups, unions, fraternal or athletic groups, or school groups? No 12/14/2021 How often do you attend meet ings of the clubs or organizations you belong to? Never 12/14/2021 Are you , , di vorced, , never , or living with a partner? 12/14/2021 AUDIT-C Answer Date Recorded Q1: How often do you have a drink containing alc ohol? 2-4 times a month 02/15/2024 Q2: How many drinks containi ng alcohol do you have on a typical day when you are drinking? 1 or 2 02/15/2024 Q3: How often do you have si x or more drinks on one occasion? Never 02/15/2024 Overall Financial Resource Strain (CARDIA) Answe r Date Recorded How hard is it for you to pa y for the very basics like food, housing, medical care, and heating? Not very hard 12/14/2021 PRAPARE - Transportation Answer Date Re corded In the past 12 months, has l ack of transportation kept you from medical appointments or from getting medications? No 09/2021 In the past 12 months, has l ack of transportation kept you from meetings, work, or from getting things needed for daily living? No 12/14/2021 Sex and Gender Information Value Date Recorded Sex Assigned at Not on file Legal Sex Male 8:20 AM CDT Gender Identity Not on file Sexual Orientation Not on file Obstetrics History Last Filed Vital Signs Vital Sign Reading Time Taken Comments Blood Pressure 114/70 03/14/2024 10:10 AM LEAD INSTRUCTOR/FLIGHT ATTENDANT Pulse 80 03/14/2024 10:10 AM LEAD INSTRUCTOR/FLIGHT ATTENDANT Temperature 36.6 C (97.8 F) 12/15/2021 7:40 AM CDT Respiratory Rate 16 02/15/2024 11:2 6 AM LEAD INSTRUCTOR/FLIGHT ATTENDANT Oxygen Saturation 97% 03/14/2024 10: 10 AM LEAD INSTRUCTOR/FLIGHT ATTENDANT Inhaled Oxygen Concentration - - Weight 126.7 kg (279 lb 6.4 oz) 024 10:10 AM LEAD INSTRUCTOR/FLIGHT ATTENDANT Height 180.3 cm (5' 11 ) 03/14/2024 10: 10 AM LEAD INSTRUCTOR/FLIGHT ATTENDANT Body Mass Index 38.97 03/14/2024 10:10 AM LEAD INSTRUCTOR/FLIGHT ATTENDANT Plan of Treatment Health Maintenance Due Date Last Done Comments Depression Screening 1945 Hepatitis C Screening 1945 DTaP/Tdap/Td Vaccine (1 - Tdap) 1957 Hepatitis B Screening 02/12/1964 Zoster Vaccine (1 of 2) 02/12/1996 Well Visit 65+ 2011 Pneumococcal vaccine 65+ (2 of 2 - PPSV23) 03/15/2016 01/19/2016 Fall Risk Assessment 12/15/2022 12/15/2021 Covid-19 Vaccine (2023-2 5 season) 2023 02/12/2021, 07/09/2020, 06/12/2020 Influenza Vaccine (Season Ended) 2024 01/15/2021, 01/17/2020, 12/20/2018, Additional history exists Medical Devices Implanted Type Area Charter Boat 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 Device Identifier Shelf Expiration Date Model / Serial / Lot [employer] Bioprep Preparation Plug Tablet Making Machine Operator [place] Curette Suction Femoral [id number] - [id number] Implanted:Qty: 1 on 12/10/2021 by Janes Sánchez MD at [facility] Right: Knee [employer] 09/08/2026 [id number] / / [id number] [employer] Triathlon Knee 6 [employer] Baseplate Tibial Cocr 5521-B-600 - [id number] Implanted:Qty: 1 on 12/10/2021 by Janes Sánchez MD at [facility] Right: Knee [employer] [id number] 08/18/2026 5521-B-600 / / [id number] [employer] Triathlon 15mm 50mm Cemented Total Stabilize End Cap Knee Stem 5560-S-115 - [id number] Implanted:Qty: 1 on 12/10/2021 by Janes Sánchez MD at [facility] Right: Knee [employer] [id number] 09/21/2026 5560-S-115 / / [id number] [employer] Triathlon Total Stabilize Knee Right 6 Component Femoral Cocr 5512-F-602 - [id number] Implanted:Qty: 1 on 12/10/2021 by Janes Sánchez MD at [facility] Right: Knee [employer] [id number] 12/27/2025 5512-F-602 / / [id number] [employer] Triathlon 12mm 100mm Cemented Total Stabilize End Cap Knee Stem 5560-S-212 - [id number] Implanted:Qty: 1 on 12/10/2021 by Janes Sánchez MD at [facility] Right: Knee [employer] [id number] 03/29/2026 5560-S-212 / / [id number] [employer] Triathlon 10mm Total Stabilize Right Medial Left Lateral 6 5546-A-602 - [id number] Implanted:Qty: 1 on 12/10/2021 by Janes Sánchez MD at [facility] Right: Knee [employer] [id number] 06/22/2026 5546-A-602 / / [id number] [employer] Triathlon 10mm Total Stabilize Left Medial Right Lateral 6 5546-A-601 - [id number] Implanted:Qty: 1 on 12/10/2021 by Janes Sánchez MD at [facility] Right: Knee [employer] [id number] 05/04/2026 5546-A-601 / / [id number] [employer] Triathlon Symmetric Revision Knee E Cone Augment Tibial Tritanium 5549-A-150 - [id number] Implanted:Qty: 1 on 12/10/2021 by Janes Sánchez MD at [facility] Right: Knee [employer] [id number] 05/23/2026 5549-A-150 / / [id number] [employer] Insert Tibial Triathlon 6 H16mm Knee Total Stabilizer Plus Sterile 0855-O-107-E - [id number] Implanted:Qty: 1 on 12/10/2021 by Janes Sánchez MD at [facility] Right: Knee [employer] [id number] 03/24/2026 6721-T-312-E / / [id number] [employer] Simplex P Radiopaque Full Dose Cement Bone Sterile 6191-1-010 - [id number] Implanted:Qty: 1 on 12/10/2021 by Janes Sánchez MD at [facility] Right: Knee [employer] 04/09/2024 6191-1-010 / / [id number] [employer] Simplex P Radiopaque Full Dose Cement Bone Sterile 6191-1-010 - [id number] Implanted:Qty: 1 on 12/10/2021 by Janes Sánchez MD at [facility] Right: Knee [employer] 04/09/2024 6191-1-010 / / [id number] [employer] Simplex P Radiopaque Full Dose Cement Bone Sterile 6191-1-010 - [id number] Implanted:Qty: 1 on 12/10/2021 by Janes Sánchez MD at [facility] Right: Knee [employer] 04/09/2024 6191-1-010 / / [id number] [employer] Simplex P Radiopaque Full Dose Cement Bone Sterile 6191-1-010 - [id number] Implanted:Qty: 1 on 12/10/2021 by Janes Sánchez MD at [facility] Right: Knee [employer] 04/09/2024 6191-1-010 / / [id number] [employer] Triathlon 10mm Total Stabilize Knee Right 6 Augment Femoral 5541-A-602 - [id number] Implanted:Qty: 1 on 12/10/2021 by Janes Sánchez MD at [facility] Right: Knee [employer] [id number] 08/06/2026 5541-A-602 / / [id number] [employer] Triathlon 10mm Total Stabilize Knee Posterior 6 Augment Femoral 5544-A-600 - [id number] Implanted:Qty: 1 on 12/10/2021 by Janes Sánchez MD at [facility] Right: Knee [employer] [id number] 09/20/2026 5544-A-600 / / [id number] [employer] Triathlon 10mm Total Stabilize Knee Posterior 6 Augment Femoral 5544-A-600 - [id number] Implanted:Qty: 1 on 12/10/2021 by Janes Sánchez MD at [facility] Right: Knee [employer] [id number] 09/20/2026 5544-A-600 / / [id number] [employer] Triathlon 10mm Total Stabilize Knee Right 6 Augment Femoral 5541-A-602 - [id number] Implanted:Qty: 1 on 12/10/2021 by Janes Sánchez MD at [facility] Right: Knee [employer] [id number] 08/06/2026 5541-A-602 / / [id number] Insurance MEDICARE [facility] MEDICARE [facility] MEDICARE A[employer] Advance Directives For more information, please contact: [phone] Documents on File Type Date Recorded Patient Digital Retoucher Expl anation ADVANCE DIRECTIVE 02/09/2022 11:02 AM Fahad r of Hand Nailer-Medical Power of Hand Nailer 09/24/2021 5:15 AM * Full Code (Latest Code Status on File) Date Activated Date Inactivated Comments 12/10/2021 3:38 PM 12/15/2021 9:45 PM Care Teams Wash Oil Pump Operator Helper Relationship Specialty Start Date End Date Chriss Jasso MD [address] [place] [address] PCP - General Family Medicine 12/19/17 Duke Murillo MD [address] [place] [id number] Medical Oncologist/Institutional Nutrition Consultant Hematology and Oncology 12/07/18 Janes Sánchez MD [address] [facility] [address] [address] Consulting Physician Orthopedic Surgery 12/11/21
--- OUTSIDE RECORDS SUMMARY | 2024-08-02 13:09 | XMS_ITS | Referral Summary ---
Author Organization [facility] Address [address] [place] [address] Phone Care Team Providers Care Biosolids Management Technician Name Role Phone Chriss Jasso MD Primary Care Prov ider Duke Murillo MD Unavailable [phone] Janes Sánchez MD Unavailable [phone] Allergies No known active allergies Medications allopurinol (ZYLOPRIM) 300 mg tablet Take 1 tablet (300 mg total) by mouth daily 7 Active levothyroxine (SYNTHROID) 125 mcg tablet Take 1 tablet (125 mcg total) by mouth meter technician before breakfast Active montelukast (SINGULAIR) 10 mg [...] (06/16/2021): Added automatically from request for surgery [id number] Coronary artery disease invo lving [place] coronary artery of [place] heart without angina pectoris 06/26/2018 Assessment & Plan (03/06/2023 10:44 AM CALCINER OPERATOR): Stable, mild-moderate coronary disease only, without angina. Continue same therapy. Continue diet and exercise. Assessment & Plan (03/16/2022 11:45 AM CALCINER OPERATOR): Stable, mild-moderate coronary disease without angina. Continue [...] 06/26/2018 Assessment & Plan (03/06/2023 10:44 AM CALCINER OPERATOR): Stable, maintaining sinus rhythm, and he remains on Eliquis. Continue same therapy. Assessment & Plan (03/16/2022 11:45 AM CALCINER OPERATOR): Stable, rate controlled, and he remains on [...] 06/26/2018 Assessment & Plan (03/06/2023 10:45 AM CALCINER OPERATOR): Well controlled. Continue same therapy. Continue diet and exercise. Assessment & Plan (03/16/2022 11:45 AM CALCINER OPERATOR): Blood pressure is well controlled. Continue same [...] 05/30/2018 Assessment & Plan (03/06/2023 10:44 AM CALCINER OPERATOR): Stable status post mitral valve repair, well compensated. Continue same therapy. Assessment & Plan (03/16/2022 11:44 AM CALCINER OPERATOR): Stable status post mitral valve repair. He remains well compensated. Continue same therapy. Assessment & Plan (10/14/2021 2:24 PM CDT): Stable status post mitral valve repair, asymptomatic. Continue same therapy. Assessment & Plan (01/05/2021 10:51 AM CDT): Stable status post mitral valve repair, asymptomatic. Continue same therapy. S/P AVR (aortic valve replacement) 05/22/2018 Assessment & Plan (03/06/2023 10:43 AM CALCINER OPERATOR): Stable status post bioprosthetic aortic valve replacement, asymptomatic. I made no change in his excellent medical regimen today. I asked him to follow up with me annually, or sooner if needed. I again advised him to diet and exercise regularly. Assessment & Plan (03/16/2022 11:44 AM CALCINER OPERATOR): Stable status post bioprosthetic aortic valve replacement, [...] Influenza, Unspecified 01/03/2018,01/18/2017 Pneumococcal Conjugate, Unspecified 01/19/2016 Social History Tobacco Use Types Packs/Day Years [...] How often do you attend chur or church services? 1 to 4 times per year 12/14/2021 Do you belong to any clubs o r organizations such as catholic groups, unions, fraternal or athletic groups, or [...] on file Sexual Orientation Not on file Last Filed Vital Signs Vital Sign Reading Time Taken Comments Blood Pressure 114/70 03/14/2024 10:10 AM CALCINER OPERATOR Pulse 80 03/14/2024 10:10 AM CALCINER OPERATOR Temperature 36.6 C (97.8 F) 12/15/2021 7:40 AM CDT Respiratory Rate 16 02/15/2024 11:2 6 AM CALCINER OPERATOR Oxygen Saturation 97% 03/14/2024 10: 10 AM CALCINER OPERATOR Inhaled Oxygen Concentration - - Weight 126.7 kg (279 lb 6.4 oz) 024 10:10 AM CALCINER OPERATOR Height 180.3 cm (5' 11 ) 03/14/2024 10: 10 AM CALCINER OPERATOR Body Mass Index 38.97 03/14/2024 10:10 AM CALCINER OPERATOR Plan of Treatment Not on file Medical Devices Implanted Type Area Crusher And Blender Operator Device Identifier Shelf Expiration Date Model / Serial / Lot [employer] Bioprep Preparation Plug Microsoft Access Developer [place] Curette Suction Femoral [id number] - [id number] Implanted:Qty: 1 on 12/10/2021 by Janes Sánchez MD at [facility] Right: Knee [employer] 09/08/2026 [id number] / / [id number] [employer] Triathlon Knee 6 [place] Baseplate Tibial Cocr 5521-B-600 - [id number] Implanted:Qty: 1 on 12/10/2021 by Janes Sánchez MD at [facility] Right: Knee [employer] [id number] 08/18/2026 5521-B-600 / / [id number] [employer] Triathlon 15mm 50mm Cemented Total Stabilize End Cap Knee Stem 5560-S-115 - [id number] Implanted:Qty: 1 on 12/10/2021 by Janes Sánchez MD at [facility] Right: Knee [employer] [id number] 09/21/2026 5560-S-115 / / [id number] [employer] Triathlon Total Stabilize Knee Right 6 Component Femoral Cocr 5512-F-602 - [id number] Implanted:Qty: 1 on 12/10/2021 by Janes Sánchez MD at [facility] Right: Knee [employer] [id number] 12/27/2025 5512-F-602 / / [id number] [employer] Triathlon 12mm 100mm Cemented Total Stabilize End Cap Knee Stem 5560-S-212 - [id number] Implanted:Qty: 1 on 12/10/2021 by Janes Sánchez MD at [facility] Right: Knee [employer] [id number] 03/29/2026 5560-S-212 / / [id number] [employer] Triathlon 10mm Total Stabilize Right Medial Left Lateral 6 5546-A-602 - [id number] Implanted:Qty: 1 on 12/10/2021 by Janes Sánchez MD at [facility] Right: Knee [employer] [id number] 06/22/2026 5546-A-602 / / [id number] [employer] Triathlon 10mm Total Stabilize Left Medial Right Lateral 6 5546-A-601 - [id number] Implanted:Qty: 1 on 12/10/2021 by Janes Sánchez MD at [facility] Right: Knee [employer] [id number] 05/04/2026 5546-A-601 / / [id number] [employer] Triathlon Symmetric Revision Knee E Cone Augment Tibial Tritanium 5549-A-150 - [id number] Implanted:Qty: 1 on 12/10/2021 by Janes Sánchez MD at [facility] Right: Knee [employer] [id number] 05/23/2026 5549-A-150 / / [id number] [employer] Insert Tibial Triathlon 6 H16mm Knee Total Stabilizer Plus Sterile 2289-F-477-E - [id number] Implanted:Qty: 1 on 12/10/2021 by Janes Sánchez MD at [facility] Right: Knee [employer] [id number] 03/24/2026 6379-U-815-E / / [id number] [employer] Simplex P Radiopaque Full Dose Cement Bone Sterile 6191-1-010 - [id number] Implanted:Qty: 1 on 12/10/2021 by Janes Sánchez MD at [facility] Right: Knee [employer] 04/09/2024 6191-1-010 / / [id number] [employer] Simplex P Radiopaque Full Dose Cement Bone Sterile 6191-1-010 - [id number] Implanted:Qty: 1 on 12/10/2021 by Janes Sánchez MD at [facility] Right: Knee [employer] 04/09/2024 6191-1-010 / / [id number] [employer] Simplex P Radiopaque Full Dose Cement Bone Sterile 6191-1-010 - [id number] Implanted:Qty: 1 on 12/10/2021 by Janes Sánchez MD at [facility] Right: Knee [employer] 04/09/2024 6191-1-010 / / [id number] [employer] Simplex P Radiopaque Full Dose Cement Bone Sterile 6191-1-010 - [id number] Implanted:Qty: 1 on 12/10/2021 by Janes Sánchez MD at [facility] Right: Knee [employer] 04/09/2024 6191-1-010 / / [id number] [employer] Triathlon 10mm Total Stabilize Knee Right 6 Augment Femoral 5541-A-602 - [id number] Implanted:Qty: 1 on 12/10/2021 by Janes Sánchez MD at [facility] Right: Knee [employer] [id number] 08/06/2026 5541-A-602 / / [id number] [employer] Triathlon 10mm Total Stabilize Knee Posterior 6 Augment Femoral 5544-A-600 - [id number] Implanted:Qty: 1 on 12/10/2021 by Janes Sánchez MD at [facility] Right: Knee [employer] [id number] 09/20/2026 5544-A-600 / / [id number] [employer] Triathlon 10mm Total Stabilize Knee Posterior 6 Augment Femoral 5544-A-600 - [id number] Implanted:Qty: 1 on 12/10/2021 by Janes Sánchez MD at [facility] Right: Knee [employer] [id number] 09/20/2026 5544-A-600 / / [id number] [employer] Triathlon 10mm Total Stabilize Knee Right 6 Augment Femoral 5541-A-602 - [id number] Implanted:Qty: 1 on 12/10/2021 by Janes Sánchez MD at [facility] Right: Knee [employer] [id number] 08/06/2026 5541-A-602 / / [id number] Insurance MEDICARE [facility] MEDICARE [facility] MEDICARE [facility] Advance Directives For more information, please contact: [phone] Documents on File Type Date Recorded Patient Meal Packer Expl anation ADVANCE DIRECTIVE 02/09/2022 11:02 AM Fahad r of Centrifugal Station Operator-Medical Power of Centrifugal Station Operator 09/24/2021 5:15 AM * Full Code (Latest Code Status on File) Date Activated Date Inactivated Comments 12/10/2021 3:38 PM 12/15/2021 9:45 PM Care Teams Biosolids Management Technician Relationship Specialty Start Date End Date Chriss Jasso MD [address] [place] [address] PCP - General Family Medicine 12/19/17 Duke Murillo MD [address] [place] [address] Medical Oncologist/Residue Furnace Operator Hematology and Oncology 12/07/18 Janes Sánchez MD [address] [address] Consulting Physician Orthopedic Surgery 12/11/21
--- OUTSIDE RECORDS SUMMARY | 2024-08-02 13:09 | XMS_ITS | Clinical Summary ---
Author Organization [facility] Address [address] [facility] [place] [address] Care Team Providers Care Anesthesia Assistant Name Role Phone Chriss Jasso MD Primary Care Provider [phone] Allergies No known active allergies Medications Eliquis 5 mg tablet 2 Active bumetanide (BUMEX) 1 mg tablet 2 Active levothyroxine 125 mcg tablet 2 Active allopurinoL (ZYLOPRIM) 300 mg tablet 2 Active montelukast (SINGULAIR) 10 mg tablet Using prn Active fluticasone propionate (FLONASE) 50 mcg/spray [place], Suspension nasal inhaler Administer 2 Sprays in each nostril. Active ferrous sulfate 325 mg (65 mg iron) tablet Take 325 mg by mouth every other day. Active cyanocobalamin (VITAMIN B-12) 100 mcg tablet Take 100 mcg by mouth daily. Active gabapentin (NEURONTIN) 300 mg capsule Take 300 mg by mouth 2 times daily. 4 Active Active Problems No known active problems Encounters Date Type Department Care Team Description 06/26/2024 External Device Data ST[facility] ABSTRACTION Provider, Abstract 06/15/2024 External Device Data [facility] ABSTRACTION Provider, Abstract 06/14/2024 External Device Data ST[facility] ABSTRACTION Provider, Abstract 05/29/2024 External Device Data STL ABSTRACTION Provider, Abstract from Last 3 Months Family History Relation Name Status Comments Father Mother Sister Alive Social History Tobacco Use Types Packs/Day Years Used Date Smoking Tobacco: Never Smokeless Tobacco: Never Tobacco Cessation:Counseling Given: Not Answered Sex and Gender Information Value Date Recorded Sex Assigned at Not on file Legal Sex Male 11:37 PM CDT Gender Identity Not on file Sexual Orientation Not on file Last Filed Vital Signs Vital Sign Reading Time Taken Comments Blood Pressure 124/77 01/09/2024 10:58 AM CDT Pulse 74 01/09/2024 10:50 AM CDT Temperature 36.7 C (98 F) 01/09/2024 10:50 AM CDT Respiratory Rate 16 01/09/2024 10:50 AM CDT Oxygen Saturation 96% 01/09/2024 10:50 AM CDT Inhaled Oxygen Concentration - - Weight 132.5 kg (292 lb) 01/09/2024 10:50 AM CDT Height 180.3 cm (5' 11 ) 02/17/2022 3:12 PM CARD CHECKER Body Mass Index 40.73 02/17/2022 3:12 PM CARD CHECKER Plan of Treatment Upcoming Encounters Date Type Department Care Team (Late st Contact Info) Description 08/13/2024 11:30 AM CDT Office Visit [facility] [place] [address] [place] [address] [facility] [address] [place] [address] Solomon Beltran MD [address] [facility] [address] [place] [address] Health Maintenance Due Date Last Done Comments DTAP/TDAP/TD VACCINES (1 - Tdap) 1964 PNEUMOCOCCAL VACCINE 50+ YEA RS (1 of 2 - PCV) 1964 01/19/2016 Traditional Medicare (ACO) A nnual Wellness Visit 1964 ZOSTER VACCINE (1 of 2) 02/12/1996 RSV VACCINE (60+ or ) (1 - 1-dose 75+ series) 2021 INFLUENZA VACCINE (#1) 2023 , 12/20/2018, 01/17/2018, Additional history exists COVID-19 Vaccine (2 - 2023-2 5 season) 2023 06/12/[address] MEDICARE PART A [facility] B [facility] [id number] Care Teams Anesthesia Assistant Relationship Specialty Start Date End Date Chriss Jasso MD PCP - General Family Practice 02/17/22
--- OUTSIDE RECORDS SUMMARY | 2024-08-02 13:09 | XMS_ITS | Clinical Summary ---
Author Organization [facility] Address [address] [place] [address] Care Team Providers Care Can Runner Name Role Phone Unavailable Primary Care Provider Unavailabl e Social History Tobacco Use Types Packs/Day Years Used Date Smoking Tobacco: Never Assessed Sex and Gender Information Value Date Recorded Sex Assigned at Not on file Legal Sex Male 11:31 AM CDT Gender Identity Not on file Sexual Orientation Not on file Plan of Treatment Health Maintenance Due Date Last Done Comments Hepatitis C 02/12/1963 DTaP, Tdap and Td Vaccines ( 1 - Tdap) 1965 Pneumococcal Vaccine: 50+ Years (1 of 1 - PCV) 02/12/1996 Zoster Vaccines (1 of 2) 02/12/1996 Annual Medicare Wellness Visit 2011 RSV Immunization or 60+ Years (1 - 1-dose 75+ series) 2021 COVID-19 Vaccine ( - 2023-2 5 season) 2023 02/12/2021, 07/09/2020, 06/12/2020 Meningococcal B Vaccine Aged Out No l onger eligible based on patient's age to complete this topic Meningococcal Vaccine Aged Out No marie marcella eligible based on patient's age to complete this topic RSV Immunizations Under 20 Months Aged Out No longer eligible b ased on patient's age to complete this topic [facility]
[2024-08-02 13:28] LABS: Basophils Absolute Auto 0.1 K/mm3 (0.0-0.1); Basophils Percent Auto 0.6 % (0.2-1.2); Eosinophils Absolute Auto 0.2 K/mm3 (0-0.3); Eosinophils Percent Auto 2.1 % (0-4.4); Hematocrit 24.8 % (42.0-52.0); Immature Granulocyte Absolute 0.04 K/mm3 (0.00-0.031); Immature Granulocyte Percent A 0.4 % (0-0.5); Lymphocytes Absolute Auto 1.23 K/mm3 (0.9-3.2); Lymphocytes Percent Auto 12.8 % (18.3-44.2); Mean Corpuscular HGB Conc 32.3 g/dl (32-36); Mean Corpuscular Hemoglobin 32.5 pg (26-34); Mean Corpuscular Volume 100.8 fl (80-100); Mean Platelet Volume 9.5 fl (7.4-10.4); Monocytes Absolute Auto 0.7 K/mm3 (0.1-0.6); Monocytes Percent Auto 7.2 % (2.6-8.5); Neutrophils Absolute Auto 7.4 K/mm3 (1.3-6.7); Neutrophils Percent Auto 76.9 % (45.5-73.1); Platelet Count Result 245 k/mm3 (150-375); Red Blood Count 2.46 M/mm3 (4.6-6.20); Red Cell Distribution Width 15.7 % (11.5-14.5); White Blood Count 9.6 K/mm3 (4.5-10.0)
[2024-08-02 15:03] LABS: Albumin Level 2.9 g/dL (3.5-5.1); Anion Gap 8 mmol/L (4-12); Blood Urea Nitrogen 67 mg/dL (9-20); Calcium 6.6 mg/dL (8.4-10.2); Carbon Dioxide 21 mmol/L (22-30); Chloride 106 mmol/L (98-107); Estimated Glomerular Filt Rate 12; Glucose 105 mg/dL (65-110); Phosphorus 5.8 mg/dL (2.5-4.5); Potassium 4.4 mmol/L (3.4-5.0); Sodium 135 mmol/L (137-145)
[2024-08-02 15:07] LABS: Immunoglobulin A 169 mg/dL (70-400); Immunoglobulin G 1203 mg/dL (700-1600); Immunoglobulin M 52 mg/dL (40-230)
[2024-08-02 15:10] LABS: Alanine Aminotransferase 26 U/L (6-50); Albumin Level 2.9 g/dL (3.5-5.1); Alkaline Phosphatase 193 U/L (38-126); Anion Gap 8 mmol/L (4-12); Aspartate Amino Transferase 36 U/L (17-59); Bilirubin,Total 0.3 mg/dL (0.2-1.3); Blood Urea Nitrogen 68 mg/dL (9-20); Calcium 6.6 mg/dL (8.4-10.2); Carbon Dioxide 20 mmol/L (22-30); Chloride 107 mmol/L (98-107); Estimated Glomerular Filt Rate 12; Glucose 107 mg/dL (65-110); Potassium 4.3 mmol/L (3.4-5.0); Sodium 135 mmol/L (137-145)
[2024-08-04 03:03] LABS: Protein, Total 5.5 g/dL (6.1-8.1)
[2024-08-05 12:59] LABS: Kappa\\Lambda Light Chains 3.22 (0.26-1.65); Lambda Light Chain 98.8 mg/L (5.7-26.3)
[2024-08-06 09:29] LABS: Abnormal Protein Band 1 0.6 g/dL (NONE DETECTED); Albumin 2.4 g/dL (3.8-4.8); Alpha 1 Globulin 0.5 g/dL (0.2-0.3); Beta 1 Globulin 0.3 g/dL (0.4-0.6); Gamma Globulin 1.1 g/dL (0.8-1.7)
== END 2024-08-02 13:06 | disposition home or self-care (01) ==
LOC: ANHLAB 13:07
PROVIDERS: Internal Medicine Nephrology; PCP Family Medicine Adolescent Medicine; Visit Provider Internal Medicine Hematology & Oncology
DX: D47.2 Monoclonal gammopathy (principal); N18.4 Chronic kidney disease, stage 4 (severe)
CPT/HCPCS: 36415; 80053; 80069; 82784; 83883; 84155; 84165; 85025

== ENCOUNTER 2024-09-04 13:52 | Inpatient (IN) | payer MEDICARE, SELFPAY ==
[2024-09-04] VITALS (11 sets, daily range): BP systolic 89–132; BP diastolic 58–88; PULSE 65–103; RESP 17–21; TEMP 36.6–36.8; O2SAT 91–100; BMI 39.4
--- NOTE | ~2024-09-04 | CT_ITS ---
CT chest abdomen pelvis wo con Ordering provider: Stephan Kothari MD History: . Sepsis, unknown source . Comparison: None. Technique: CT chest without IV contrast. CT abdomen and pelvis without oral and IV contrast. Radiatio n reduction technique utilized.The dose-length product was 2000 2147.95 mGy-cm. FINDINGS: The study is limited due to lack of IV contrast. CHEST: --VISUALIZED THORACIC INLET: Normal as visualized. --MEDIASTINUM: Aorta/coronary arteries: Mild atheromatous disease. Heart/other: The heart is not enlarged. Lymph nodes: Precarinal lymphadenopathy is seen with the largest measuring 1.7 cm. Paratracheal lymph nodes are also noted with the largest measuring 1.4 cm. Postoperative changes in the mediastinum. --LUNGS: moderate right pleural effusion with adjacent atelectasis is seen. Small left pleural effusi on with adjacent atelectasis is also noted. No pulmonary nodules or masses. No infiltrates. No pneumo thorax. --MUSCULOSKELETAL: Soft tissues: The superficial soft tissues are normal. Bones: Age appropriate degenerative changes of the spine. Kyphosis is noted. ABDOMEN/PELVIS: --MUSCULOSKELETAL: Bones: Age appropriate degenerative changes of the spine. Superficial soft tissues: Edema is seen in the subcutaneous tissues bilaterally laterally and in the anterior abdominal wall in the area of the pelvis. Possible thickening in the area of the testicular wall is possible. Clinical evaluation advised.. Otherwise, The superficial soft tissues are normal. --UPPER ABDOMINAL ORGANS: Liver: Normal. Gallbladder: Normal. Spleen: Normal. Stomach/duodenum: Normal. Pancreas: Normal. Adrenals: Normal. Kidneys: Soft tissue densities in the left kidney upper pole and the right kidney lower pole most lik vini cysts. Ultrasound evaluation advised. Large soft tissue density seen adjacent to the left kidney and spleen which measures 8 x 7.6 cm most likely exophytic renal cyst. Ultrasound evaluation also adv ised.. --PELVIC ORGANS: The bladder is normal. No bladder stones. --BOWEL AND MESENTERY: Colon: No evidence of diverticulitis. Fecal material is loaded in the colon suggestive of constipatio n. The appendix is not demonstrated. Minimal fat stranding is seen in the presacral area posterior to the rectum which may be edema. Small Bowel: Normal. No obstruction. Peritoneum/mesentery: No free air or free fluid. No mesenteric lymphadenopathy. --RETROPERITONEUM: Moderate atheromatous disease of the abdominal aorta. No retroperitoneal lymphad enopathy. IMPRESSION: CHEST: 1. Moderate right pleural effusion and mild left with adjacent atelectatic changes. 2. Mediastinal lymphadenopathy ABDOMEN/PELVIS: 1. No evidence of appendicitis, diverticulitis or intestinal obstruction. 2. Bilateral renal soft tissue densities most likely cysts. Ultrasound evaluation advised. Large sof t tissue density also seen between the left kidney and the spleen which may be an exophytic renal cys t. Ultrasound evaluation advised. 3. Constipation . Edema in the subcutaneous tissues which may indicate inflammatory changes versus volume overload. Reviewed, dictated and finalized at location A. IMPRESSION: CHEST: 1. Moderate right pleural effusion and mild left with adjacent atelectatic eloisa nges. 2. Mediastinal lymphadenopathy ABDOMEN/PELVIS: 1. No evidence of appendicitis, diverticulitis or intestinal obstruction. 2. Bilateral renal soft tissue densities most likely cysts. Ultrasound evaluat ion advised. Large soft tissue density also seen between the left kidney and th e spleen which may be an exophytic renal cyst. Ultrasound evaluation advised. 3. Constipation . Edema in the subcutaneous tissues which may indicate inflammatory changes versu s volume overload.
--- NOTE | ~2024-09-04 | XR_ITS ---
XR chest 1V portable Ordering provider: Stephan Kothari MD History: 79 years Male with . SOB . Comparison: February 13, 2015 FINDINGS: MEDIASTINUM: The cardiac silhouette is slightly enlarged. Congestive santiago. Postoperative changes in the mediastinum. LUNGS: No effusions or pneumothorax. Prominent markings bilaterally with interstitial thickening suggestive of edema versus pneumonitis. OTHER: No free air under the diaphragm. IMPRESSION: Cardiomegaly with congestive santiago. Bilateral interstitial thickening suggestive of pulmonary edema versus pneumonitis. Clinical correlat ion and follow-up advised Reviewed, dictated and finalized at location A. IMPRESSION: Cardiomegaly with congestive santiago. Bilateral interstitial thickening suggestive of pulmonary edema versus pneumoni tis. Clinical correlation and follow-up advised
--- NOTE | 2024-09-04 14:07 | ECG_ITS ---
Test Date: 2024-09-04 14:39:40 Measurements Intervals [place] Rate: 86 P: 0 SC: 0 QRS: -10 QRSD: 149 T: 179 QT: 416 QTc: 500 Interpretive Statements ATRIAL FIBRILLATION LEFT BUNDLE BRANCH BLOCK [120+ ms QRS DURATION, 80+ ms Q/S IN V1/V2, 85+ ms R IN I/aVL/V5/V6] No previous ECG available for comparison Electronically Signed On 09-05-2024 15:11:04 CDT by Yakov Chaudhary M.D.
--- OUTSIDE RECORDS SUMMARY | 2024-09-04 14:09 | XMS_ITS | Referral Summary ---
Author Organization [facility] Address [address] [place] [address] Phone Care Team Providers Care Records Management Specialist Name Role Phone Chriss Jasso MD Primary Care Prov ider Duke Murillo MD Unavailable [phone] Janes Sánchez MD Unavailable [phone] Allergies No known active allergies Medications allopurinol (ZYLOPRIM) 300 mg tablet Take 1 tablet (300 mg total) by mouth daily 7 Active levothyroxine (SYNTHROID) 125 mcg tablet Take 1 tablet (125 mcg total) by mouth hand stapler before breakfast Active montelukast (SINGULAIR) 10 mg [...] (06/16/2021): Added automatically from request for surgery [id number] Coronary artery disease invo lving [place] coronary artery of [place] heart without angina pectoris 06/26/2018 Assessment & Plan (03/06/2023 10:44 AM BUSINESS LINE MANAGER): Stable, mild-moderate coronary disease only, without angina. Continue same therapy. Continue diet and exercise. Assessment & Plan (03/16/2022 11:45 AM BUSINESS LINE MANAGER): Stable, mild-moderate coronary disease without angina. Continue [...] 06/26/2018 Assessment & Plan (03/06/2023 10:44 AM BUSINESS LINE MANAGER): Stable, maintaining sinus rhythm, and he remains on Eliquis. Continue same therapy. Assessment & Plan (03/16/2022 11:45 AM BUSINESS LINE MANAGER): Stable, rate controlled, and he remains on [...] 06/26/2018 Assessment & Plan (03/06/2023 10:45 AM BUSINESS LINE MANAGER): Well controlled. Continue same therapy. Continue diet and exercise. Assessment & Plan (03/16/2022 11:45 AM BUSINESS LINE MANAGER): Blood pressure is well controlled. Continue same [...] 05/30/2018 Assessment & Plan (03/06/2023 10:44 AM BUSINESS LINE MANAGER): Stable status post mitral valve repair, well compensated. Continue same therapy. Assessment & Plan (03/16/2022 11:44 AM BUSINESS LINE MANAGER): Stable status post mitral valve repair. He remains well compensated. Continue same therapy. Assessment & Plan (10/14/2021 2:24 PM CDT): Stable status post mitral valve repair, asymptomatic. Continue same therapy. Assessment & Plan (01/05/2021 10:51 AM CDT): Stable status post mitral valve repair, asymptomatic. Continue same therapy. S/P AVR (aortic valve replacement) 05/22/2018 Assessment & Plan (03/06/2023 10:43 AM BUSINESS LINE MANAGER): Stable status post bioprosthetic aortic valve replacement, asymptomatic. I made no change in his excellent medical regimen today. I asked him to follow up with me annually, or sooner if needed. I again advised him to diet and exercise regularly. Assessment & Plan (03/16/2022 11:44 AM BUSINESS LINE MANAGER): Stable status post bioprosthetic aortic valve replacement, [...] How often do you attend chur or bahai services? 1 to 4 times per year 12/14/2021 Do you belong to any clubs o r organizations such as temple groups, unions, fraternal or athletic groups, or [...] Comments Blood Pressure 114/70 03/14/2024 10:10 AM BUSINESS LINE MANAGER Pulse 80 03/14/2024 10:10 AM BUSINESS LINE MANAGER Temperature 36.6 C (97.8 F) 12/15/2021 7:40 AM CDT Respiratory Rate 16 02/15/2024 11:2 6 AM BUSINESS LINE MANAGER Oxygen Saturation 97% 03/14/2024 10: 10 AM BUSINESS LINE MANAGER Inhaled Oxygen Concentration - - Weight 126.7 kg (279 lb 6.4 oz) 024 10:10 AM BUSINESS LINE MANAGER Height 180.3 cm (5' 11) 03/14/2024 10: 10 AM BUSINESS LINE MANAGER Body Mass Index 38.97 03/14/2024 10:10 AM BUSINESS LINE MANAGER Plan of Treatment Not on file Medical Devices Implanted Type Area Digital Printer Operator Device Identifier Shelf Expiration Date Model / Serial / Lot [employer] Bioprep Preparation Plug Inventory Transcriber [place] Curette Suction Femoral [id number] - [id number] Implanted:Qty: 1 on 12/10/2021 by Janes Sánchez MD at [facility] Right: Knee [employer] 09/08/2026 [id number] / / [id number] [employer] Triathlon Knee 6 [place] Baseplate Tibial Cocr 5521-B-600 - [id number] Implanted:Qty: 1 on 12/10/2021 by Janes Sánchez MD at [facility] Right: Knee [employer] [id number] 08/18/2026 5521-B-600 / / [id number] [employer] Triathlon 15mm 50mm Cemented Total Stabilize End Cap Knee Stem 5560-S-115 - [id number] Implanted:Qty: 1 on 12/10/2021 by Janes Sánchez MD at [facility] Right: Knee [employer] [id number] 09/21/2026 5560-S-115 / / [id number] [employer] Triathlon Total Stabilize Knee Right 6 Component Femoral Cocr 5512-F-602 - [id number] Implanted:Qty: 1 on 12/10/2021 by Janes Sánchez MD at [facility] Right: Knee [employer] [id number] 12/27/2025 5512-F-602 / / [id number] [employer] Triathlon 12mm 100mm Cemented Total Stabilize End Cap Knee Stem 5560-S-212 - [id number] Implanted:Qty: 1 on 12/10/2021 by Janes Sánchez MD at [facility] Right: Knee [employer] [id number] 03/29/2026 5560-S-212 / / [id number] [employer] Triathlon 10mm Total Stabilize Right Medial Left Lateral 6 5546-A-602 - [id number] Implanted:Qty: 1 on 12/10/2021 by Janes Sánchez MD at [facility] Right: Knee [employer] [id number] 06/22/2026 5546-A-602 / / [id number] [employer] Triathlon 10mm Total Stabilize Left Medial Right Lateral 6 5546-A-601 - [id number] Implanted:Qty: 1 on 12/10/2021 by Janes Sánchez MD at [facility] Right: Knee [employer] [id number] 05/04/2026 5546-A-601 / / [id number] [employer] Triathlon Symmetric Revision Knee E Cone Augment Tibial Tritanium 5549-A-150 - [id number] Implanted:Qty: 1 on 12/10/2021 by Janes Sánchez MD at [facility] Right: Knee [employer] [id number] 05/23/2026 5549-A-150 / / [id number] [employer] Insert Tibial Triathlon 6 H16mm Knee Total Stabilizer Plus Sterile 8826-Z-445-E - [id number] Implanted:Qty: 1 on 12/10/2021 by Janes Sánchez MD at [facility] Right: Knee [employer] [id number] 03/24/2026 1655-B-667-E / / [id number] [employer] Simplex P Radiopaque Full Dose Cement Bone Sterile 6191-1-010 - [id number] Implanted:Qty: 1 on 12/10/2021 by Janes Sánchez MD at [facility] Right: Knee [employer] 04/09/2024 6191-1-010 / / [id number] [employer] Simplex P Radiopaque Full Dose Cement Bone Sterile 6191-1-010 - [id number] Implanted:Qty: 1 on 12/10/2021 by Janes Sánchez MD at [facility] Right: Knee [employer] 04/09/2024 6191-1-010 / / [id number] [employer] Simplex P Radiopaque Full Dose Cement Bone Sterile 6191-1-010 - [id number] Implanted:Qty: 1 on 12/10/2021 by Janes Sánchez MD at [facility] Right: Knee [employer] 04/09/2024 6191-1-010 / / [id number] [employer] Simplex P Radiopaque Full Dose Cement Bone Sterile 6191-1-010 - [id number] Implanted:Qty: 1 on 12/10/2021 by Janes Sánchez MD at [facility] Right: Knee [employer] 04/09/2024 6191-1-010 / / [id number] [employer] Triathlon 10mm Total Stabilize Knee Right 6 Augment Femoral 5541-A-602 - [id number] Implanted:Qty: 1 on 12/10/2021 by Janes Sánchez MD at [facility] Right: Knee [employer] [id number] 08/06/2026 5541-A-602 / / [id number] [employer] Triathlon 10mm Total Stabilize Knee Posterior 6 Augment Femoral 5544-A-600 - [id number] Implanted:Qty: 1 on 12/10/2021 by Janes Sánchez MD at [facility] Right: Knee [employer] [id number] 09/20/2026 5544-A-600 / / [id number] [employer] Triathlon 10mm Total Stabilize Knee Posterior 6 Augment Femoral 5544-A-600 - [id number] Implanted:Qty: 1 on 12/10/2021 by Janes Sánchez MD at [facility] Right: Knee [employer] [facility] [id number] 09/20/2026 5544-A-600 / / [id number] [employer] Triathlon 10mm Total Stabilize Knee Right 6 Augment Femoral 5541-A-602 - [id number] Implanted:Qty: 1 on 12/10/2021 by Janes Sánchez MD at [facility] Right: Knee [employer] [id number] 08/06/2026 5541-A-602 / / [id number] Insurance MEDICARE [facility] MEDICARE [facility] MEDICARE [facility] Advance Directives For more information, please contact: [phone] Documents on File Type Date Recorded Patient Torch Straightener Expl anation ADVANCE DIRECTIVE 02/09/2022 11:02 AM Fahad r of Pump Attendant-Medical Power of Pump Attendant 09/24/2021 5:15 AM * Full Code (Latest Code Status on File) Date Activated Date Inactivated Comments 12/10/2021 3:38 PM 12/15/2021 9:45 PM Care Teams Records Management Specialist Relationship Specialty Start Date End Date Chriss Jasso MD [address] [place] [address] PCP - General Family Medicine 12/19/17 Duke Murillo MD [address] [place] [address] Medical Oncologist/Air Marshal Hematology and Oncology 12/07/18 Janes Sánchez MD [address] [address] Consulting Physician Orthopedic Surgery 12/11/21
--- OUTSIDE RECORDS SUMMARY | 2024-09-04 14:09 | XMS_ITS | Encounter Summary ---
Author Organization [facility] Address [address] [place] [address] Care Team Providers Care Ham Passer Name Role Phone Chriss Jasso MD Primary Care Provider [phone] Encounter Details Date Type Department Care Team (Late st Contact Info) Description 09/03/2024 External Device Data STL ABSTRACTION Provider, Abstract NO ADDRESS ON FILE Social History Tobacco Use Types Packs/Day Years Used Date Smoking Tobacco: Never Smokeless Tobacco: Never Sex and Gender Information Value Date Recorded Sex Assigned at Not on file Legal Sex Male 11:37 PM CDT Gender Identity Not on file Sexual Orientation Not on file documented as of this encounter Plan of Treatment Upcoming Encounters Date Type Department Care Team (Late st Contact Info) Description 10/18/2024 11:30 AM CDT Office Visit [facility] Oncology and Hematology - [place] [address] [place] [address] [address] [place] [address] [place] [address] [address] [place] [address] documented as of this encounter Visit Diagnoses Not on filedocumented in this encounter Care Teams Ham Passer Relationship Specialty Start Date End Date Chriss Jasso MD PCP - General Family Practice 02/17/22 documented as of this encounter
--- OUTSIDE RECORDS SUMMARY | 2024-09-04 14:09 | XMS_ITS | Encounter Summary ---
Author Organization [facility] Address [address] [place] [address] Care Team Providers Care Director Embalmer Name Role Phone Chriss Jasso MD Primary Care Provider [phone]- [phone] Encounter Details Date Type Department Care Team [...] Description 10/18/2024 11:30 AM CDT Office Visit [facility] Oncology and Hematology - [place]acio [address] [place] [address] [address] [place] [address] [place] [address] [address] [place] [address] documented as of this encounter Visit Diagnoses Not on filedocumented in this encounter Care Teams Director Embalmer Relationship Specialty Start Date End Date Chriss Jasso MD PCP - General Family Practice 02/17/22 documented as of this encounter
--- OUTSIDE RECORDS SUMMARY | 2024-09-04 14:09 | XMS_ITS | Clinical Summary ---
Author Organization [facility] Address [address] [place] [address] Phone Care Team Providers Care Back Shoe Operator Name Role Phone Chriss Jasso MD Primary Care Prov ider Duke Murillo MD Unavailable [phone] Janes Sánchez MD Unavailable [phone] Allergies No known active allergies Medications allopurinol (ZYLOPRIM) 300 mg tablet Take 1 tablet (300 mg total) by mouth daily 7 Active levothyroxine (SYNTHROID) 125 mcg tablet Take 1 tablet (125 mcg total) by mouth clinical biochemical geneticist before breakfast Active montelukast (SINGULAIR) 10 mg [...] (06/16/2021): Added automatically from request for surgery [id number] Coronary artery disease invo lving havasupai coronary artery of havasupai heart without angina pectoris 06/26/2018 Assessment & Plan (03/06/2023 10:44 AM NUTRITION THERAPIST): Stable, mild-moderate coronary disease only, without angina. Continue same therapy. Continue diet and exercise. Assessment & Plan (03/16/2022 11:45 AM NUTRITION THERAPIST): Stable, mild-moderate coronary disease without angina. Continue [...] 06/26/2018 Assessment & Plan (03/06/2023 10:44 AM NUTRITION THERAPIST): Stable, maintaining sinus rhythm, and he remains on Eliquis. Continue same therapy. Assessment & Plan (03/16/2022 11:45 AM NUTRITION THERAPIST): Stable, rate controlled, and he remains on [...] 06/26/2018 Assessment & Plan (03/06/2023 10:45 AM NUTRITION THERAPIST): Well controlled. Continue same therapy. Continue diet and exercise. Assessment & Plan (03/16/2022 11:45 AM NUTRITION THERAPIST): Blood pressure is well controlled. Continue same [...] 05/30/2018 Assessment & Plan (03/06/2023 10:44 AM NUTRITION THERAPIST): Stable status post mitral valve repair, well compensated. Continue same therapy. Assessment & Plan (03/16/2022 11:44 AM NUTRITION THERAPIST): Stable status post mitral valve repair. He remains well compensated. Continue same therapy. Assessment & Plan (10/14/2021 2:24 PM CDT): Stable status post mitral valve repair, asymptomatic. Continue same therapy. Assessment & Plan (01/05/2021 10:51 AM CDT): Stable status post mitral valve repair, asymptomatic. Continue same therapy. S/P AVR (aortic valve replacement) 05/22/2018 Assessment & Plan (03/06/2023 10:43 AM NUTRITION THERAPIST): Stable status post bioprosthetic aortic valve replacement, asymptomatic. I made no change in his excellent medical regimen today. I asked him to follow up with me annually, or sooner if needed. I again advised him to diet and exercise regularly. Assessment & Plan (03/16/2022 11:44 AM NUTRITION THERAPIST): Stable status post bioprosthetic aortic valve replacement, [...] Blank Relation Name Status Comments Father Ankit Leviner (Age 62) Mother carlos Charles (Age 87) [...] How often do you attend chur or latter-day services? 1 to 4 times per year 12/14/2021 Do you belong to any clubs o r organizations such as congregational groups, unions, fraternal or athletic groups, or [...] Comments Blood Pressure 114/70 03/14/2024 10:10 AM NUTRITION THERAPIST Pulse 80 03/14/2024 10:10 AM NUTRITION THERAPIST Temperature 36.6 C (97.8 F) 12/15/2021 7:40 AM CDT Respiratory Rate 16 02/15/2024 11:2 6 AM NUTRITION THERAPIST Oxygen Saturation 97% 03/14/2024 10: 10 AM NUTRITION THERAPIST Inhaled Oxygen Concentration - - Weight 126.7 kg (279 lb 6.4 oz) 024 10:10 AM NUTRITION THERAPIST Height 180.3 cm (5' 11) 03/14/2024 10: 10 AM NUTRITION THERAPIST Body Mass Index 38.97 03/14/2024 10:10 AM NUTRITION THERAPIST Plan of Treatment Health Maintenance Due Date [...] history exists Medical Devices Implanted Type Area Equipment Manager Device Identifier Shelf Expiration Date Model / Serial / Lot [employer] Bioprep Preparation Plug Plant Maintenance 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 [place] Su[employer] Femoral [id number] - [id number] Implanted:Qty: 1 on 12/10/2021 by Janes Sánchez MD at [facility] Right: Knee [employer] 09/08/2026 [id number] / / [id number] [employer] Triathlon Knee 6 [place] Baseplate Tibial Cocr 5521-B-600 - [id number] Implanted:Qty: 1 on 12/10/2021 by Janes Sánchez MD at [facility] Right: Knee [employer] [id number] 08/18/2026 5521-B-600 / / [id number] [employer] Triathlon 15mm 50mm Cemented Total Stabilize End Cap Knee Stem 5560-S-115 - [id number] Implanted:Qty: 1 on 12/10/2021 by Janes Sánchez MD at [facility] Right: Knee [employer] [id number] 09/21/2026 5560-S-115 / / [id number] [employer] Triathlon Total Stabilize Knee Right 6 Component Femoral Cocr 5512-F-602 - [id number] Implanted:Qty: 1 on 12/10/2021 by Janes Sánchez MD at [facility] Right: Knee [employer] [id number] 12/27/2025 5512-F-602 / / [id number] [employer] Triathlon 12mm 100mm Cemented Total Stabilize End Cap Knee Stem 5560-S-212 - [id number] Implanted:Qty: 1 on 12/10/2021 by Janes Sánchez MD at [facility] Right: Knee [employer] [id number] 03/29/2026 5560-S-212 / / [id number] [employer] Triathlon 10mm Total Stabilize Right Medial Left Lateral 6 5546-A-602 - [id number] Implanted:Qty: 1 on 12/10/2021 by Jnaes Sánchez MD at [facility] Right: Knee [employer] [id number] 06/22/2026 5546-A-602 / / [id number] [employer] Triathlon 10mm Total Stabilize Left Medial Right Lateral 6 5546-A-601 - [id number] Implanted:Qty: 1 on 12/10/2021 by Janes Sánchez MD at [facility] Right: Knee [employer] [id number] 05/04/2026 5546-A-601 / / [id number] [employer] Triathlon Symmetric Revision Knee E Cone Augment Tibial Tritanium 5549-A-150 - [id number] Implanted:Qty: 1 on 12/10/2021 by Janes Sánchez MD at [facility] Right: Knee [employer] [id number] 05/23/2026 5549-A-150 / / [id number] [employer] Insert Tibial Triathlon 6 H16mm Knee Total Stabilizer Plus Sterile 9622-P-171-E - [id number] Implanted:Qty: 1 on 12/10/2021 by Janes Sánchez MD at [facility] Right: Knee [employer] [id number] 03/24/2026 6774-Q-011-E / / [id number] [employer] Simplex P Radiopaque Full Dose Cement Bone Sterile 6191-1-010 - [id number] Implanted:Qty: 1 on 12/10/2021 by Janes Sánchez MD at [facility] Right: Knee [employer] 04/09/2024 6191-1-010 / / [id number] [employer] Simplex P Radiopaque Full Dose Cement Bone Sterile 6191-1-010 - [id number] Implanted:Qty: 1 on 12/10/2021 by Janes Sánchez MD at [facility] Right: Knee [employer] 04/09/2024 6191-1-010 / / [id number] [employer] Simplex P Radiopaque Full Dose Cement Bone Sterile 6191-1-010 - [id number] Implanted:Qty: 1 on 12/10/2021 by Janes Sánchez MD at [facility] Right: Knee [employer] 04/09/2024 6191-1-010 / / [id number] [employer] Simplex P Radiopaque Full Dose Cement Bone Sterile 6191-1-010 - [id number] Implanted:Qty: 1 on 12/10/2021 by Janes Sánchez MD at [facility] Right: Knee [employer] 04/09/2024 6191-1-010 / / [id number] [employer] Triathlon 10mm Total Stabilize Knee Right 6 Augment Femoral 5541-A-602 - [id number] Implanted:Qty: 1 on 12/10/2021 by Janes Sánchez MD at [facility] Right: Knee [employer] [id number] 08/06/2026 5541-A-602 / / [id number] [employer] Triathlon 10mm Total Stabilize Knee Posterior 6 Augment Femoral 5544-A-600 - [id number] Implanted:Qty: 1 on 12/10/2021 by Janes Sánchez MD at [facility] Right: Knee [employer] [id number] 09/20/2026 5544-A-600 / / [id number] [employer] Triathlon 10mm Total Stabilize Knee Posterior 6 Augment Femoral 5544-A-600 - [id number] Implanted:Qty: 1 on 12/10/2021 by Janes Sánchez MD at [facility] Right: Knee [employer] [id number] 09/20/2026 5544-A-600 / / [id number] [employer] Triathlon 10mm Total Stabilize Knee Right 6 Augment Femoral 5541-A-602 - [id number] Implanted:Qty: 1 on 12/10/2021 by Janes Sánchez MD at [facility] Right: Knee [employer] [id number] 08/06/2026 5541-A-602 / / [id number] Insurance MEDICARE [facility] MEDICARE [facility] MEDICARE AARP Advance Directives For more information, please contact: [phone] Documents on File Type Date Recorded 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 Expl anation ADVANCE DIRECTIVE 02/09/2022 11:02 AM Fahad r of Data Entry Analyst-Medical Power of Data Entry Analyst 09/24/2021 5:15 AM * Full Code (Latest Code Status on File) Date Activated Date Inactivated Comments 12/10/2021 3:38 PM 12/15/2021 9:45 PM Care Teams Back Shoe Operator Relationship Specialty Start Date End Date Chriss Jasso MD [address] [place] [address] PCP - General Family Medicine 12/19/17 Duke Murillo MD [address] [place] [address] Medical Oncologist/Card Stripper Hematology and Oncology 12/07/18 Janes Sánchez MD [address] [facility] [address] [address] Consulting Physician Orthopedic Surgery 12/11/21
--- OUTSIDE RECORDS SUMMARY | 2024-09-04 14:09 | XMS_ITS | Clinical Summary ---
Author Organization [facility] Address [address] [place] [address] Care Team Providers Care Post Tronic Machine Operator Name Role Phone Chriss Jasso MD Primary Care Provider [phone] Allergies No known active allergies Medications Eliquis 5 mg tablet 2 Active bumetanide (BUMEX) 1 mg tablet 2 Active levothyroxine 125 mcg tablet 2 Active allopurinoL (ZYLOPRIM) 300 mg tablet 2 Active montelukast (SINGULAIR) 10 mg tablet Using prn Active fluticasone propionate (FLONASE) 50 mcg/spray Hume, Suspension nasal inhaler Administer 2 Sprays in each nostril. Active ferrous sulfate 325 mg (65 mg iron) tablet Take 325 mg by mouth every other day. Active cyanocobalamin (VITAMIN B-12) 100 mcg tablet Take 100 mcg by mouth daily. Active Active Problems No known active problems Encounters Date Type Department Care Team Description 09/03/2024 External Device Data STL ABSTRACTION Provider, Abstract 09/03/2024 External Device Data STL ABSTRACTION Provider, Abstract 08/28/2024 External Device Data STL ABSTRACTION Provider, Abstract 08/27/2024 External Device Data STL ABSTRACTION Provider, Abstract 08/13/2024 11:30 AM CDT Office Visit [facility] Oncology and Hematology - Horacio [address] [place] [address] Solomon Beltran MD Chronic anemia (Primary Dx); Stage 4 chronic kidney disease (CMS/HCC); Anemia of chronic renal failure, stage 4 (severe) (CMS/HCC) 08/13/2024 Abstract [facility] Oncology and Hematology - Horacio [address] [place] [address] Solomon Beltran MD 08/06/2024 Orders Only [facility] Oncology and Hematology - Horacio [address] [place] [address] Solomon Beltran MD 08/05/2024 Orders Only [facility] Oncology and Hematology - Horacio [address] [place] [address] Solomon Beltran MD 06/26/2024 External Device Data STL ABSTRACTION Provider, [...] Sign Reading Time Taken Comments Blood Pressure 127/83 08/13/2024 11:15 AM CDT Pulse 69 08/13/2024 11:15 AM CDT Temperature 36.4 C (97.6 F) 08/13/2024 11:15 AM CDT Respiratory Rate 16 08/13/2024 11:1 5 AM CDT Oxygen Saturation 92% 08/13/2024 11: 15 AM CDT Inhaled Oxygen Concentration - - Weight 113.4 kg (250 lb) 08/13/2024 11: 15 AM CDT patient reported Height 180.3 cm (5' 11) 02/17/2022 3:1 2 PM MANAGER GLOBAL Body Mass Index 34.87 02/17/2022 3:12 PM MANAGER GLOBAL Plan of Treatment Upcoming Encounters Date Type Department Care Team (Late st Contact Info) Description 10/18/2024 11:30 AM CDT Office Visit [facility] Oncology and Hematology - Horacio [address] [place] [address] Solomon Beltran MD [address] [facility] [address] [place] [address] Health Maintenance Due Date Last Done Comments DTAP/TDAP/TD VACCINES (1 - Tdap) 1964 PNEUMOCOCCAL VACCINE 50+ YEA RS (1 of 2 - PCV) 1964 01/19/2016 Traditional Medicare (ACO) A nnual Wellness Visit 1964 ZOSTER VACCINE (1 of 2) 02/12/1996 RSV VACCINE (60+ or ) (1 - 1-dose 75+ series) 2021 INFLUENZA VACCINE (#1) 2023 0, 12/20/2018, 01/17/2018, Additional history exists COVID-19 Vaccine (2 - 2023-2 5 season) 2023 06/12/2020 Procedures Procedure Name Priority Date/Time Associated Diagnosis Comments BASIC METABOLIC PANEL Routine 08/02/2024 1:25 PM CDT CBC MIXED CELL DIFFERENTIAL Routine 08/02/2024 1:03 PM CDT PROTEIN ELECTROPHORESIS, CSF Routine 08/02/2024 12:43 PM CDT KAPPA/LAMBDA LIGHT CHAINS Routine 2024 11:48 AM CDT from Last 3 Months Results * BASIC METABOLIC PANEL (08/02/2024 1:25 PM CDT) Blood Solomon Beltran MD CHEMISTRY ORDERABLES Final Resu lt * CBC MIXED CELL DIFFERENTIAL (08/02/2024 1:03 PM CDT) Blood Solomon Beltran MD HEMATOLOGY ORDERABLES Final Res ult * PROTEIN ELECTROPHORESIS, CSF (08/02/2024 12:43 PM CDT) Cerebrospinal fluid CEREBROSPINAL FLUID / Unknown Solomon Beltran MD BODY FLUIDS AND STOOLS Final Re sult * KAPPA/LAMBDA, FREE LIGHT CHAINS (08/02/2024 11:48 AM CDT) Blood Solomon Beltran MD CHEMISTRY ORDERABLES Final Resu lt from Last 3 Months Insurance MEDICARE PART A AND B [facility] [id number] Care Teams Post Tronic Machine Operator Relationship Specialty Start Date End Date Chriss Jasso MD PCP - General Family Practice 02/17/22
--- OUTSIDE RECORDS SUMMARY | 2024-09-04 14:09 | XMS_ITS | Continuity of Care Document ---
Author Organization [facility] Address [address] [place] [address] Phone Care Team Providers Care Petal Cutter Name Role Phone Uriostegui CASEY DE Terence Unavailable Unavailab le Allergies, [...] Provider Providers Copied on Encounter [facility], [address] [address], [place], [place], [id number], [place] tel:[phone] [facility] No Information 3 Moody Pratt. [address] [facility], [facility] [address], [place], [place], [id number] , [place]. tel: [phone] [facility], [address], [id number], [place] [phone] [facility] right knee (chief complaint) Pain in right kneePresence of right artificial knee joint 2 Moody Pratt. [address] [facility], [address], [place], [place], [id number] , [place]. tel: [phone] Referring Provider: Terence Hameed, [address] [facility] [address], [place], [address]. tel:[phone] [facility], [address], [id number], [place] tel:[phone] [facility] Right Knee (chief complaint) Presence of right artificial knee joint 2 Moody Pratt. [address] [facility], [address], [place], [place], [id number] , [place]. tel: [phone] Referring Provider: Terence Hameed, [address] [facility] [address], [place], [address]. tel:[phone] [facility], [address], [id number], [place] tel:[phone] [facility] right knee (chief complaint) Presence of right artificial knee jointPain in right knee Sep-2 2 Moody Pratt. [address] [facility], [address], [place], [place], [address] , [place]. tel: [phone] Referring Provider: Terence Hameed, [address] [facility] [address], [place], [address]. tel:[phone] [facility], [address] [facility] [address], [place], [place], [id number], [place] tel:[phone] [facility] No Information Sep- 2 Gonzalo Avalos er. [address] [facility], [address], [place], [place], [id number] , [place]. tel: [phone] [facility], [address] [facility] [address], [place], [place], [id number], [place] [phone] [facility] No Information Sep-0 2 Gonzalo Avalos er. [address] [facility], [address], [place], [place], [address] , [place]. tel: [phone] Referring Provider: Janes Silva, [address] [facility] [address], [place], [address]. 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 [address] [facility], [address], [place], [place], [address] , [place]. 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 [address] [facility], [address], [place], [place], [address] , [place]. 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 [address] [facility], [address] [address], [place], [place], [address] , [place]. 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 [address] [facility], [address] [address], [place], [place], [address] , [place]. tel: [phone] Referring Provider: Janes Silva, [address] [facility] [address] [facility], [place], [address]. tel:[phone] [facility], [address] [place] [address], [id number], [place] tel:[phone] [facility] Mech loosening of internal right knee prosthetic joint, initPain in right knee 2 Gonzalo rincon. [address] [facility], [address] [address], [place], [place], [address] , [place]. 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 [address] [facility], [address] [address], [place], [place], [address] , [place]. tel: [phone] Office/outpat ient visit,new, [facility], [address] [address], [place], [place], [id number], tel:[phone] [facility] right knee (chief complaint) Pain in right kneeMech loosening of internal right knee prosthetic joint, init 2 Gonzalo rincon. [address] [facility], [address] [address], [place], [place], [id number] , [place]. tel: [phone] Referring Provider: Janes Silva, [address] [facility] [address], [place], [address]. tel:[phone] Family History Family Member Type Diagnosis Age At Onset Sister Problem (finding) Osteoarthritis Mother Problem (finding) Diabetes Father Problem (finding) Heart Disease Father Problem (finding) Gout Mother Problem (finding) Osteoarthritis Payers Payer name Insurance type Covered republican ID Authoriza tion(s) [place] Part [place] [id number] AARP CI [id number] Social History Type Description Quantity Date Captured Comments Alcohol Use Details Unknown Caffeine Use Details Unknown Tobacco Use Status No Information Smoking Status No Information Sex Male Chief Complaint And Reason For Visit No Information Reason For Referral Reason For Referral No Information Plan Of Treatment Date Type Action Status Referral Referred To: [facility] Ordered: Referrals: Neurology. [facility]. Location: [facility]. Evaluate and treat ordered Referral Ordered: [...] to the visit today by his . knee Sanjeev is a 76 ye ar-old male who presents to the office for evaluation of right knee pain. 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 He does have lymphedema in his lower extremities. He also has severe neuropathy and is on gabapentin. He is not anticoagulated he does use diclofenac his imaging account manager is Dr. 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 Arana. And return negative for infection. Functional Status Date Functional Assessmen t No Information Instructions Date Instruction Additional Infor sri No Information Assessments Type Assessment Date No Information Patient Care Teams Name Effective Dates (start - stop) Status Members No Information
[2024-09-04 15:01] LABS: Fractional Inspired Oxygen 21 %; HCO3 ABG 14.4 mEq/l (22.0-26.0); PCO2 ABG 34.7 mmHg (35.0-45.0); PO2 ABG 55.2 mmHg (80.0-100.0); PO2 FiO2 Ratio Arterial Blood 2.63 %; Total Hemoglobin 8.5 g/dL (12.0-18.0)
[2024-09-04 15:11] LABS: pH ABG 7.236 (7.350-7.450)
[2024-09-04 15:12] LABS: Modified Allen's Test Pass; Oxygen Saturation ABG 83.6 % (95.0-100.0); Oxyhemoglobin 83.1 % THb (90.0-100.0); Site Drawn RIGHT RADIAL
[2024-09-04 15:40] LABS: Hematocrit 24.9 % (42.0-52.0); Hemoglobin 7.8 g/dL (14.0-18.0); Mean Corpuscular HGB Conc 31.3 g/dl (32-36); Mean Corpuscular Hemoglobin 32.5 pg (26-34); Mean Corpuscular Volume 103.8 fl (80-100); Mean Platelet Volume 9.6 fl (7.4-10.4); Platelet Count Result 331 k/mm3 (150-375); Red Cell Distribution Width 17.2 % (11.5-14.5)
[2024-09-04 15:54] LABS: Alanine Aminotransferase 22 U/L (6-50); Albumin Level 2.6 g/dL (3.5-5.1); Alkaline Phosphatase 135 U/L (38-126); Anion Gap 13 mmol/L (4-12); Aspartate Amino Transferase 29 U/L (17-59); Bilirubin,Total 0.4 mg/dL (0.2-1.3); Blood Urea Nitrogen 101 mg/dL (9-20); Calcium 6.9 mg/dL (8.4-10.2); Carbon Dioxide 15 mmol/L (22-30); Chloride 107 mmol/L (98-107); Estimated CRCL calculation 12 ml/min; Estimated Glomerular Filt Rate 8; Glucose 115 mg/dL (65-110); Potassium 4.1 mmol/L (3.4-5.0); Sodium 135 mmol/L (137-145)
[2024-09-04 16:05] LABS: Eosinophils Absolute Manual 0.25 K/mm3 (0.02-0.50); Eosinophils Percent Manual 1 % (0-4); Monocytes Percent Manual 2 % (3-9); Neutrophils Percent Manual 95 % (46-73); Platelet Estimate Adequate (Adequate); Total Cells Counted 100
[2024-09-04 16:06] LABS: Schistocytes None Seen
[2024-09-04 16:07] LABS: Anisocytosis 2+; Hypochromasia 1+
[2024-09-04 16:08] LABS: NT Pro B Type Natriuretic Pept 28100 pg/mL (19.9-100); Troponin I 0.058 ng/mL (0.000-0.034)
[2024-09-04 16:09] LABS: Platelet Clumps Present; Polychromasia 1+
[2024-09-04 16:17] LABS: INR 2.8; Prothrombin Time 29.6 Seconds (11.1-14.7)
[2024-09-04 16:18] LABS: Partial Thromboplastin Time 51.6 Seconds (22.3-36.8)
[2024-09-04 16:22] LABS: Band Neutrophils Percent 0 % (0-6); Neutrophils Absolute Manual 23.75 K/mm3 (1.3-6.7)
[2024-09-04] MEDS: BUMETANIDE INJ 1 MG/4 ML VIAL IV PUSH (16:35)
--- NOTE | 2024-09-04 17:05 | ED_ITS ---
HPI - General Adult General Chief complaint: Shortness of Breath/Dyspnea Stated complaint: SOB Time Seen by Provider: 09/04/24 14:02 History of Present Illness HPI narrative: This is a 79-year-old male history of CKD stage 4/5 presenting with shortness of breath. Over last 2 weeks he has been getting progressively more short of breath. He has also developed increasing lower extremity edema that is now extended up to his hips into his lower abdomen. He denies fevers chills chest pain or abdominal pain. Patient is not currently on dialysis. He has been taking his Bumex as directed. 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 Related Data Home Medications ?Medication ?Instructions ?Recorded ?Confirmed ?Last Taken ?Type bumetanide 1 mg tablet 1 mg PO QAM 06/08/21 07/18/24 Unknown History cetirizine 10 mg tablet (Zyrtec) 10 mg PO DAILY PRN allergy symptoms 06/08/21 07/18/24 Unknown History multivitamin (Daily Multi-Vitamin 1 tablet PO DAILY 06/08/21 07/18/24 Unknown History tablet) apixaban 5 mg tablet (Eliquis) 5 mg PO BID 08/03/22 07/18/24 Unknown History mecobalamin (vitamin B12) 1,000 1,000 mcg PO .q.o.d 05/07/24 07/18/24 Unknown History mcg chewable tablet (B12 Active) acetaminophen 500 mg tablet 1,000 mg PO Q6H PRN pain 06/27/24 07/18/24 Unknown History (Tylenol Extra Strength) ferrous sulfate 325 mg (65 mg 325 mg PO DAILY 06/27/24 07/18/24 Unknown History iron) tablet (Feosol) fluticasone propionate 50 2 spray intranasal DAILY PRN nasal 06/27/24 07/18/24 Unknown History mcg/actuation nasal congestion spray,suspension montelukast 10 mg tablet 10 mg PO DAILY PRN sinus symptoms 06/27/24 07/18/24 Unknown History Allergies Allergy/AdvReac Type Severity Reaction Status Date / Time No Known Allergies Allergy Verified 07/18/24 09:48 [facility] Past Medical History Medical History Other hereditary and idiopathic neuropathies Gout Obstructive sleep apnea BPH with obstruction/lower urinary tract symptoms Testicular hypofunction Monoclonal gammopathy Hypothyroid Surgical History Surgical History History of total knee arthroplasty bilateral History of aortic valve replacement (2019) Family History Family History Mother Diabetes mellitus Sibling Diabetes mellitus Father Heart disease Social History Social History Smoking status: Never smoker Second hand tobacco smoke exposure: No Alcohol intake: current Alcohol use details: socially Substance use: never Substance use type: does not use Do You Feel Safe in your Home?: Yes Lack of Transportation: No Lack of Food: Never True Current Housing: I Have Housing Concerned About Future Housing: No Difficulty Paying Gas/Electric Bills: No Difficulty Paying for Meds: No Education: Bachelor's Degree Difficulty w/ Childcare or Family Care: No Living arrangements: with family Occupation/Education: retired 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 Gender identity (if verbalized by the patient): Male Sexual Orientation (if Verbalized by the Patient): Straight or Heterosexual Spiritual care concerns: No Agree to blood products: Yes Exam 2 Narrative: APPEARANCE: No apparent distress. Head: atraumatic. EYES: EOMI, NOSE: Atraumatic NECK: Trachea midline RESPIRATORY: Bibasilar crackles, speaking in full sentences, requiring 2 L CARDIOVASCULAR: RRR, pitting edema through the hips ABDOMINAL: Obese soft nontender MUSCULOSKELETAl: No obvious deformities NEURO: Alert. Moving 4/4 extremities SKIN:: Intertrigo of the pannus/groin PSYCHIATRIC: Normal affect Course Vital Signs Vital signs: Vital Signs Temperature 98 F 09/04/24 13:56 Pulse Rate 103 H 09/04/24 13:56 Respiratory Rate 18 09/04/24 13:56 Blood Pressure 132/75 09/04/24 13:56 Pulse Oximetry 96 09/04/24 13:56 Temperature 98 F 09/04/24 13:56 Pulse Rate 92 09/04/24 17:42 Respiratory Rate 20 09/04/24 17:42 Blood Pressure 102/78 09/04/24 17:48 Pulse Oximetry 100 09/04/24 17:42 Oxygen Delivery Nasal Cannula 09/04/24 15:09 Oxygen Flow Rate 2 09/04/24 15:09 Fraction of Inspired Oxygen 21 09/04/25 14:07 Medical Decision Making [facility] Narrative Medical decision making narrative: -Course: 79-year-old male presenting for difficulty breathing. On exam patient is overtly fluid overloaded. Kidney function has worsened is BUN is 101 with a creatinine of 6.41. Patient's as static on ABG. He is requiring 2 L of supplemental oxygen. Case was discussed with Dr. Ortiz. We will attempt diuresis w/ Bumex. [place] [address]. Patient started on broad-spectrum antibiotics while his infectious workup is being completed. Infectious workup unremarkable. Urine not indicative infection. No evidence of pneumonia on CT scan. Skin exam revealed intertrigo in the pannus/groin but no evidence of cellulitis. Blood cultures are still pending. Patient will be admitted the IMU for further management. -DDX includes but is not limited to: Fluid overload, congestive heart failure, ACS, UTI, PNA Vital Signs Vital Signs: Vital Signs Temperature 98 F 09/04/24 13:56 Pulse Rate 103 H 09/04/24 13:56 Respiratory Rate 18 09/04/24 13:56 Blood Pressure 132/75 09/04/24 13:56 Pulse Oximetry 96 09/04/24 13:56 Temperature 98 F 09/04/24 13:56 Pulse Rate 92 09/04/24 17:42 Respiratory Rate 20 09/04/24 17:42 Blood Pressure 102/78 09/04/24 17:48 Pulse Oximetry 100 09/04/24 17:42 Oxygen Delivery Nasal Cannula 09/04/24 15:09 Oxygen Flow Rate 2 09/04/24 15:09 Fraction of Inspired Oxygen 21 09/04/24 14:07 Lab Data 09/04/24 15:35 09/04/24 15:35 Labs: Lab Results 09/04/24 09/04/24 09/04/24 Range/Units 15:35 17:19 17:37 WBC 25.0 H (4.5-10.0) K/mm3 RBC 2.40 L (4.6-6.20) M/mm3 Hgb 7.8 L (14.0-18.0) g/dL Hct 24.9 L (42.0-52.0) % MCV 103.8 H (80-100) fl MCH 32.5 (26-34) pg MCHC 31.3 L (32-36) g/dl RDW 17.2 H (11.5-14.5) % Plt Count 331 (150-375) k/mm3 MPV 9.6 (7.4-10.4) fl Immature Gran % (Auto) Not Reportable Neut % (Auto) Not Reportable Lymph % (Auto) Not Reportable [place] % (Auto) Not Reportable Eos % (Auto) Not Reportable Baso % (Auto) Not Reportable Lymph # (Auto) Not Reportable [place] # (Auto) Not Reportable Eos # (Auto) Not Reportable Baso # (Auto) Not Reportable Abs Immat Gran (auto) Not Reportable Absolute Neuts (auto) Not Reportable Absolute Nucleated RBC Not Reportable Total Counted 100 Neutrophils % (Manual) 95 H (46-73) % Band Neutrophils % 0 (0-6) % Lymphocytes % (Manual) 2.0 L (18-44) % Monocytes % (Manual) 2 L (3-9) % Eosinophils % (Manual) 1 (0-4) % Nucleated RBC % Not Reportable Abs Neuts (Manual) 23.75 H (1.3-6.7) K/mm3 Abs Lymphs (Manual) 0.50 L (1.1-4.5) K/mm3 Abs Monocytes (Manual) 0.50 (0.1-0.90) K/mm3 Absolute Eos (Manual) 0.25 (0.02-0.50) K/mm3 Platelet Estimate Adequate (Adequate) Clumped Platelets Present Polychromasia 1+ Hypochromasia 1+ Anisocytosis 2+ Schistocytes None seen PT 29.6 H (11.1-14.7) Seconds INR 2.8 APTT 51.6 H (22.3-36.8) Seconds Sodium 135 L (137-145) mmol/L Potassium 4.1 (3.4-5.0) mmol/L Chloride 107 (98-107) mmol/L Carbon Dioxide 15 L (22-30) mmol/L Anion Gap 13 H (4-12) mmol/L BUN 101 H D (9-20) mg/dL Creatinine 6.41 H (0.7-1.3) mg/dL Estim Creat Clear Calc 12 ml/min Estimated GFR 8 L (59 - ) Glucose 115 H (65-110) mg/dL Calcium 6.9 L (8.4-10.2) mg/dL Total Bilirubin 0.4 (0.2-1.3) mg/dL AST 29 (17-59) U/L ALT 22 (6-50) U/L Alkaline Phosphatase 135 H (38-126) U/L Troponin I 0.058 H* (0.000-0.034) ng/mL NT-Pro-B Natriuret Pep 87391 H (19.9-100) pg/mL Total Protein 6.0 L (6.3-8.2) g/dL Albumin 2.6 L (3.5-5.1) g/dL Urine Color Yellow (Yellow) Urine Appearance Cloudy H (Clear) Urine pH 5.0 (5.0-9.0) Ur Specific [place] 1.019 (1.001-1.035) Urine Protein 4+ H (Negative) mg/dL Urine Glucose (UA) Negative (Negative) mg/dL Urine Ketones Negative (Negative) mg/dL Ur Blood (Man) 1+ H (Negative) Urine Nitrate Negative (Negative) Urine Bilirubin Negative (Negative) Urine Urobilinogen 0.2 (<2.0) mg/dL Leukocyte Esterase Rfl Negative (Negative) SEN/UL Urine RBC 0-2 (0-2) /hpf Urine WBC 0-5 (0-3) /hpf Ur Squamous Epith Cells None seen (Few) /hpf Urine Bacteria None seen /hpf Urine Casts 3-5 Nasal MRSA (PCR) Pending Hep Bs Antigen Pending Hep Bs Antibody Pending Hep B Core Total Ab Pending ABG Data ABG results: 09/04/24 14:58 Puncture Site Right radial ABG pH 7.236 L* ABG pCO2 34.7 L ABG pO2 55.2 L ABG PO2/FiO2 Ratio 2.63 ABG HCO3 14.4 L ABG O2 Saturation 83.6 L* ABG O2 Content 10.0 L ABG Base Excess -12.0 A-a Gradient 53.0 Oxyhemoglobin 83.1 L* Total Hemoglobin 8.5 L O2 Delivery Device Not Reportable O2 Liters/Min Not Reportable FiO2 21 Critical Care Time Critical Care Time Critical Care Time: Yes Total Critical Care Time: 35 Discharge Plan Discharge Clinical Impression: Acute kidney failure, Fluid overload, Leukocytosis Patient Disposition: Still a Patient Condition: Stable Patient Language: Swedish Prescriptions: No Action Eliquis 5 mg tablet 5 mg PO BID mecobalamin (vitamin B12) [B12 Active] 1,000 mcg tablet,chewable 1,000 mcg PO .q.o.d hydrocodone-acetaminophen 5-325 mg tablet 1 tablet PO TID PRN (Reason: pain) Qty: 30 0RF doxepin 10 mg capsule 10 mg PO QHS Qty: 90 0RF cetirizine [Zyrtec] 10 mg tablet 10 mg PO DAILY PRN (Reason: allergy symptoms) multivitamin [Daily Multi-Vitamin] Tablet 1 tablet PO DAILY bumetanide 1 mg tablet 1 mg PO QAM ferrous sulfate [Feosol] 325 mg (65 mg iron) tablet 325 mg PO DAILY acetaminophen [Tylenol Extra Strength] 500 mg tablet 1,000 mg PO Q6H PRN (Reason: pain) montelukast 10 mg tablet 10 mg PO DAILY PRN (Reason: sinus symptoms) Rx Instructions: TAKE 1 TABLET BY MOUTH DAILY fluticasone propionate 50 mcg/actuation spray,suspension 2 spray intranasal DAILY PRN (Reason: nasal congestion) Rx Instructions: administer into each nostril allopurinol 300 mg tablet 300 mg PO DAILY Qty: 90 3RF levothyroxine [Levoxyl] 150 mcg tablet 150 mcg PO DAILY Qty: 90 2RF Follow-up/Referrals: UNKNOWN,DOCTOR [Primary Care Provider] -
--- NOTE | 2024-09-04 17:49 | PC.NURSE ---
Phlebotomy called for second set of blood cultures
[2024-09-04 18:11] LABS: Add Urine Microscopic? YES; Appearance Urine Cloudy (Clear); Bacteria Urine None Seen /hpf; Bilirubin Urine Negative (Negative); Blood Urine 1+ (Negative); Color Urine Yellow (Yellow); Glucose Urine UA Negative (Negative); Ketones Urine Negative (Negative); Leukocyte Esterase Ur Negative LEU/UL (Negative); Nitrate Urine Negative (Negative); Protein Urine 4+ mg/dL (Negative); RBC Urine 0-2 /hpf (0-2); Specific Grav Ur 1.019 (1.001-1.035); Squamous Epithelial Cell Urine None Seen /hpf (Few); Urobilinogen Urine 0.2 mg/dL (<2.0); WBC Urine 0-5 /hpf (0-3)
[2024-09-04 18:33] LABS: Hepatitis B Surface Antigen Negative (Negative)
[2024-09-04 18:50] LABS: Hepatitis B Surface Anti Res Negative
[2024-09-04 18:54] LABS: MRSA (PCR) NOT DETECTED (NOT DETECTE)
--- NOTE | 2024-09-04 19:25 | PC.NURSE ---
Assumed care of patient after receiving bedside report from GLENN Denney @ [phone]
[2024-09-04] MEDS: CEFEPIME 1 GM/NS 50 ML 1 GM/50 ML BAG IVPB (19:54)
[2024-09-04] MEDS: VANCOMYCIN 2,000 MG/NS 500 ML 2,000 MG/500 ML BAG 250 MG IVPB (20:32)
--- NOTE | 2024-09-04 21:19 | PM.IMHP ---
H&P: HPI History of Present Illness Date/Time: 09/04/24 21:19 Chief Complaint: Shortness of breath Narrative: This is a 79-year-old male with multiple comorbidities including atrial fibrillation on Eliquis, gout, BPH, hypertension, hypothyroidism, JESSICA noncompliant with CPAP, MGUS, CKD stage 4, history of bowel prostatic aortic valve replacement, mitral valve repair and excision of left atrial appendage 2019 with 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 Patient sees Dr. Ortiz Nephrology. They discussed doing a renal biopsy but this was not done yet. The patient is on Eliquis. Last seen Nephrology on 07/18/2024 at which time his CKD was noted to be worsening. At this time he had already had increased leg swelling and shortness of breath for a month or so. Since then it has become progressively worsened he presents to [facility] ER on 09/04/2024 severe shortness of breath and progressive swelling up to his hips and stomach now. Your workup reveals WBC 25, hemoglobin 7.8, INR 2.8, ABG 7.236, pCO2 34.7, PO2 55 on room air, bicarb 14.4. Patient was placed on 2 L nasal cannula and given Bumex 1 mg IV x1. He subsequently had good urine output and felt much better. He was also given vancomycin and cefepime as his WBC count was 25. However, no infectious etiology identified on CT abdomen chest pelvis without contrast. Moderate right pleural effusion and interstitial edema identified. Blood cultures were obtained. Nephrology consulted from ER. Advised diuresis. Review of Systems Review of Systems: All systems reviewed & are unremarkable except as noted in HPI and below (HPI) [facility] Past Medical History Medical History Other hereditary and idiopathic neuropathies Gout Obstructive sleep apnea BPH with obstruction/lower urinary tract symptoms Testicular hypofunction Monoclonal gammopathy Hypothyroid Surgical History Surgical History History of total knee arthroplasty bilateral History of aortic valve replacement (2019) Family History Family History Mother Diabetes mellitus Sibling Diabetes mellitus Father Heart disease Social History Social History Smoking status: Never smoker Second hand tobacco smoke exposure: No Alcohol intake: current Alcohol use details: socially Substance use: never Substance use type: does not use Do You Feel Safe in your Home?: Yes Lack of Transportation: No Lack of Food: Never True Current Housing: I Have Housing Concerned About Future Housing: No Difficulty Paying Gas/Electric Bills: No Difficulty Paying for Meds: No Education: Bachelor's Degree Difficulty w/ Childcare or Family Care: No Living arrangements: with family 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 Gender identity (if verbalized by the patient): Male Sexual Orientation (if Verbalized by the Patient): Straight or Heterosexual Spiritual care concerns: No Agree to blood products: Yes Meds Home Medications and Allergies Home Medications ?Medication ?Instructions ?Recorded ?Confirmed ?Type bumetanide 1 mg tablet 1 mg PO QAM 06/08/21 07/18/24 History cetirizine 10 mg tablet (Zyrtec) 10 mg PO DAILY PRN allergy symptoms 06/08/21 07/18/24 History multivitamin (Daily Multi-Vitamin 1 tablet PO DAILY 06/08/21 07/18/24 History tablet) apixaban 5 mg tablet (Eliquis) 5 mg PO BID 08/03/22 07/18/24 History allopurinol 300 mg tablet 300 mg PO DAILY #90 tabs 04/29/24 07/18/24 Rx mecobalamin (vitamin B12) 1,000 1,000 mcg PO .q.o.d 05/07/24 07/18/24 History mcg chewable tablet (B12 Active) acetaminophen 500 mg tablet 1,000 mg PO Q6H PRN pain 06/27/24 07/18/24 History (Tylenol Extra Strength) ferrous sulfate 325 mg (65 mg 325 mg PO DAILY 06/27/24 07/18/24 History iron) tablet (Feosol) fluticasone propionate 50 2 spray intranasal DAILY PRN nasal 06/27/24 07/18/24 History mcg/actuation nasal congestion spray,suspension montelukast 10 mg tablet 10 mg PO DAILY PRN sinus symptoms 06/27/24 07/18/24 History levothyroxine 150 mcg tablet 150 mcg PO DAILY #90 tabs 07/10/24 07/18/24 Rx (Levoxyl) doxepin 10 mg capsule 10 mg PO QHS #90 caps 08/16/24 08/16/24 Rx hydrocodone 5 mg-acetaminophen 325 1 tablet PO TID PRN pain #30 tabs 08/16/24 08/16/24 Rx mg tablet Allergies Allergy/AdvReac Type Severity Reaction Status Date / Time No Known Allergies Allergy Verified 07/18/24 09:48 Vital Signs Vital Signs - 24 hr 09/04/24 13:56 09/04/24 14:07 09/04/24 15:09 Temperature 98 F Pulse Rate 103 H Respiratory Rate 18 Blood Pressure 132/75 Pulse Oximetry 96 93 91 Oxygen Delivery Room Air Nasal Cannula Oxygen Flow Rate 2 Fraction of Inspired Oxygen 21 09/04/24 15:15 09/04/24 17:01 09/04/24 17:42 Temperature Pulse Rate 77 85 92 Respiratory Rate 21 H 17 20 Blood Pressure 99/79 L Pulse Oximetry 98 100 Oxygen Delivery Oxygen Flow Rate Fraction of Inspired Oxygen 09/04/24 17:48 09/04/24 18:48 09/04/24 19:25 Temperature Pulse Rate 83 100 Respiratory Rate 20 18 Blood Pressure 102/78 116/63 110/58 L Pulse Oximetry 97 100 Oxygen Delivery Oxygen Flow Rate Fraction of Inspired Oxygen Exam Const: General: comfortable and no acute distress Other: A&O x3 HENMT: Mouth: Yes moist mucous membranes Eyes: Pupils: Equal, round and reactive pupils present Neck: Neck: supple Resp: Auscultation: crackles and diminished lung sounds Cardio: Rate: regular rate Rhythm: abnormal rhythm GI: GI Palp: Yes Soft to palpation and No Tenderness to palpation present (GI) Other: Body wall edema Extrem: General: edema Other: 3+ pitting edema with chronic stasis changes. H&P: Results Labs Labs: Short CBC 09/04/24 Range/Units 15:35 WBC 25.0 H (4.5-10.0) K/mm3 Hgb 7.8 L (14.0-18.0) g/dL Hct 24.9 L (42.0-52.0) % Plt Count 331 (150-375) k/mm3 BMP 09/04/24 15:35 Sodium 135 L Potassium 4.1 Chloride 107 Carbon Dioxide 15 L BUN 101 H D Creatinine 6.41 H Glucose 115 H Calcium 6.9 L Cardiac Enzymes 09/04/24 Range/Units 15:35 Troponin I 0.058 H* (0.000-0.034) ng/mL Liver Function 09/04/24 Range/Units 15:35 Total Bilirubin 0.4 (0.2-1.3) mg/dL AST 29 (17-59) U/L ALT 22 (6-50) U/L Alkaline Phosphatase 135 H (38-126) U/L Albumin 2.6 L (3.5-5.1) g/dL Urine 09/04/24 Range/Units 17:19 Urine Color Yellow (Yellow) Urine Appearance Cloudy H (Clear) Urine pH 5.0 (5.0-9.0) Ur Specific [place] 1.019 (1.001-1.035) Urine Protein 4+ H (Negative) mg/dL Urine Glucose (UA) Negative (Negative) mg/dL Assessment and Plan Assessment and plan (1) Acute kidney failure: Code(s): N17.9 - Acute kidney failure, unspecified Status: Acute Plan This is a 79-year-old male with multiple comorbidities including atrial fibrillation on Eliquis, gout, BPH, hypertension, hypothyroidism, JESSICA noncompliant with CPAP, MGUS, CKD stage 4, history of bowel prostatic aortic valve replacement, mitral valve repair and excision of left atrial appendage 2019 with 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 Patient sees Dr. Ortiz Nephrology. They discussed doing a renal biopsy but this was not done yet. The patient is on Eliquis. Last seen Nephrology on 07/18/2024 at which time his CKD was noted to be worsening. At this time he had already had increased leg swelling and shortness of breath for a month or so. Since then it has become progressively worsened he presents to [facility] ER on 09/04/2024 severe shortness of breath and progressive swelling up to his hips and stomach now. Your workup reveals WBC 25, hemoglobin 7.8, INR 2.8, ABG 7.236, pCO2 34.7, PO2 55 on room air, bicarb 14.4. Patient was placed on 2 L nasal cannula and given Bumex 1 mg IV x1. He subsequently had good urine output and felt much better. He was also given vancomycin and cefepime as his WBC count was 25. However, no infectious etiology identified on CT abdomen chest pelvis without contrast. Moderate right pleural effusion and interstitial edema identified. Blood cultures were obtained. BNP 48561. Serum creatinine 6.41 up from 4.75 in July. Nephrology consulted from ER. Advised diuresis. ----- Patient's and daughter are present, concurring with the patient's statements and wishes. As of now, he is leaning towards not moving through with dialysis and is accepted that there is a point where quality of life will not accommodate dialysis. However, he wants to leave the final decision after talking with Nephrology. Defer repeat ultrasounds to Nephrology. he wishes to be DNR but all of the medical therapy can be administered. Will continue with Bumex 1 mg IV b.i.d. currently is hemodynamically stable. Keep on telemetry. Trend troponin. Trend white count. Follow-up blood cultures. Follow-up lactic acid. Repeat ABG in the a.m.. Check 2D echocardiogram. Strict I's and O's, daily weights NPO midnight. ----- DNR. SCDs. NPO midnight. Hospitalist MIPS Advance Care Plan I have confirmed that the patient's Advanced Care Plan is present, code status is documented, or surrogate decision maker is listed in patient medical record.: Yes Medication Reconciliation I have utilized all available resources to obtain, update and review the patients current medications (includes all prescriptions, OTC, herbals, cannabis, and nutritional supplements).: Yes
--- NOTE | 2024-09-04 22:53 | ADMGEN ---
This patient, Sanjeev Charles, was admitted to IMU Room 210-01. Patient/family oriented to hospital policies and general routines including ID bracelet, bed and alarms, visiting hours, pain management, procedures, bathroom and other care routines, personal items, smoking policy, room service/diet, and visiting hours. Information on how to activate the Rapid Response Team has been discussed. Patient/Family are encouraged to report perceived risks to care and to ask questions if they do not understand what they are told or what they should do.
[2024-09-04 23:32] LABS: Lactic Acid Reflex 1.1 mmol/L (0.7-2.0)
[2024-09-04] MEDS: MICONAZOLE NITRATE 2% CREAM 30 GM TUBE 1 APPLIC TOPICAL (23:45)
[2024-09-04 23:50] LABS: Troponin I 0.064 ng/mL (0.000-0.034)
[2024-09-05] VITALS (13 sets, daily range): BP systolic 91–156; BP diastolic 46–87; PULSE 81–98; RESP 17–20; TEMP 36.4–36.9; O2SAT 92–100
[2024-09-05] MEDS: BUMETANIDE INJ 1 MG/4 ML VIAL IV PUSH (00:01)
[2024-09-05 03:31] LABS: Alanine Aminotransferase 21 U/L (6-50); Albumin Level 2.6 g/dL (3.5-5.1); Alkaline Phosphatase 121 U/L (38-126); Anion Gap 14 mmol/L (4-12); Aspartate Amino Transferase 27 U/L (17-59); Bilirubin,Total 0.3 mg/dL (0.2-1.3); Blood Urea Nitrogen 103 mg/dL (9-20); Calcium 6.9 mg/dL (8.4-10.2); Carbon Dioxide 12 mmol/L (22-30); Chloride 108 mmol/L (98-107); Estimated CRCL calculation 12 ml/min; Estimated Glomerular Filt Rate 9; Glucose 99 mg/dL (65-110); Potassium 4.2 mmol/L (3.4-5.0); Sodium 134 mmol/L (137-145)
[2024-09-05 03:45] LABS: Troponin I 0.062 ng/mL (0.000-0.034)
[2024-09-05 05:32] LABS: Hematocrit 24.5 % (42.0-52.0); Hemoglobin 7.6 g/dL (14.0-18.0); Mean Corpuscular Volume 106.5 fl (80-100); Platelet Count Result 311 k/mm3 (150-375); Red Cell Distribution Width 17.3 % (11.5-14.5); White Blood Count 21.2 K/mm3 (4.5-10.0)
[2024-09-05 05:40] LABS: Alveolar/Arterial O2 Gradient 75.6 mmHg; Base Excess ABG -11.8 mEq/l (+/-2.0); Carboxyhemoglobin 1.1 % THb (0-2.0); Fractional Inspired Oxygen 28 %; HCO3 ABG 15.2 mEq/l (22.0-26.0); Methemoglobin ABG 0.1 %THb (0-1.5); Oxygen Content ABG 10.6 %vol (16.0-22.0); Oxygen Saturation ABG 92.7 % (95.0-100.0); Oxyhemoglobin 92.3 % THb (90.0-100.0); PCO2 ABG 39.4 mmHg (35.0-45.0); PO2 ABG 77.6 mmHg (80.0-100.0); PO2 FiO2 Ratio Arterial Blood 2.77 %; Reduced Hemoglobin 6.5 %THb (0-5.0); Total Hemoglobin 8.1 g/dL (12.0-18.0)
[2024-09-05 06:00] LABS: Procalcitonin 0.5 ng/mL
[2024-09-05 06:15] LABS: Anisocytosis 2+; Hypochromasia 1+; Polychromasia 1+; Schistocytes None Seen
[2024-09-05 06:19] LABS: pH ABG 7.205 (7.350-7.450)
[2024-09-05 06:19] LABS: Eosinophils Absolute Manual 0.21 K/mm3 (0.02-0.50); Eosinophils Percent Manual 1 % (0-4); Lymphocytes Absolute Manual 0.84 K/mm3 (1.1-4.5); Lymphocytes Percent Manual 4 % (18-44); Monocytes Absolute Manual 0.21 K/mm3 (0.1-0.90); Monocytes Percent Manual 1 % (3-9); Neutrophils Percent Manual 94 % (46-73); Platelet Estimate Adequate (Adequate); Total Cells Counted 100
[2024-09-05 06:20] LABS: Device NASAL CANNULA; Modified Allen's Test Pass; Site Drawn LEFT RADIAL
[2024-09-05] MEDS: MICONAZOLE NITRATE 2% CREAM 30 GM TUBE 1 APPLIC TOPICAL ×2 (09:34→21:36)
--- NOTE | 2024-09-05 09:56 | P.PNIM_ITS ---
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 Patient sees Dr. Ortiz Nephrology. They discussed doing a renal biopsy but this was not done yet. The patient is on Eliquis. Last seen Nephrology on 07/18/2024 at which time his CKD was noted to be worsening. At this time he had already had increased leg swelling and shortness of breath for a month or so. Since then it has become progressively worsened he presents to [facility] ER on 09/04/2024 severe shortness of breath and progressive swelling up to his hips and stomach now. ER workup reveals WBC 25, hemoglobin 7.8, INR 2.8, ABG 7.236, pCO2 34.7, PO2 55 on room air, bicarb 14.4. Patient was placed on 2 L nasal cannula and given Bumex 1 mg IV x1. He subsequently had good urine output and felt much better. He was also given vancomycin and cefepime as his WBC count was 25. However, no infectious etiology identified on CT abdomen chest pelvis without contrast. Moderate right pleural effusion and interstitial edema identified. Blood cultures were obtained. BNP 18224. Serum creatinine 6.41 up from 4.75 in July. Nephrology consulted from ER. Advised diuresis. Acute on chronic renal failure worsening over the past few months. Now with significant acidosis and anasarca. With leukocytosis also suspicious for underlying sepsis. No source identified so far. UA is negative. CT chest abdomen pelvis negative for any infectious source. Possible cellulitis/infectious source. On empiric antibiotics with vancomycin and cefepime. Continue on diuretics as ordered and as tolerated. Creatinine stable today. Continue to monitor urine output. Will add oral bicarbonate for metabolic acidosis. Patient not leaning towards going for dialysis. There certainly is an acute component to his kidney disease currently which could be related to sepsis. No extraordinary heroic measures wished by the patient and family. If continues to decline consideration of comfort measures/hospice by the patient. Will have hospice team come by for informational meeting. Currently will continue as ordered. Discussed persistent acidosis and borderline hypotension. Wishes to be DNR. Elevated troponin however remains flat Elevated BNP is related to renal failure DVT prophylaxis Eliquis renally dose Code status do not resuscitate Subjective Date/time seen: 09/05/24 09:56 Interval history: no overnight events, feels a bit better, made 450 cc urine. catheter in place. b reathing is easier. no pain. sob with exertion. discussed goals of care during the visit. familiy at bedside Review of Systems Review of Systems: All systems reviewed & are unremarkable except as noted in HPI and below (HPI) Exam Narrative: APPEARANCE: No apparent distress. alert and oriented x 3 Head: atraumatic. EYES: EOMI, NOSE: Atraumatic NECK: Trachea midline RESPIRATORY: Bibasilar crackles, speaking in full sentences, requiring 2 L CARDIOVASCULAR: RRR, pitting edema through the hips ABDOMINAL: Obese soft nontender MUSCULOSKELETAl: No obvious deformities NEURO: Alert. Moving 4/4 extremities SKIN:: Intertrigo of the pannus/groin PSYCHIATRIC: Normal affect Objective Data Vital Signs Vital Signs: Vital Signs - 24 hr 09/04/24 13:56 09/04/24 14:07 09/04/24 15:09 Temperature 98 F Pulse Rate 103 H Respiratory Rate 18 Blood Pressure 132/75 Pulse Oximetry 96 93 91 Oxygen Delivery Room Air Nasal Cannula Oxygen Flow Rate 2 Fraction of Inspired Oxygen 21 09/04/24 15:15 09/04/24 17:01 09/04/24 17:42 Temperature Pulse Rate 77 85 92 Respiratory Rate 21 H 17 20 Blood Pressure 99/79 L Pulse Oximetry 98 100 Oxygen Delivery Oxygen Flow Rate Fraction of Inspired Oxygen 09/04/24 17:48 09/04/24 18:48 09/04/24 19:25 Temperature Pulse Rate 83 100 Respiratory Rate 20 18 Blood Pressure 102/78 116/63 110/58 L Pulse Oximetry 97 100 Oxygen Delivery Oxygen Flow Rate Fraction of Inspired Oxygen 09/04/24 22:30 09/04/24 23:00 09/05/24 00:00 Temperature 98.3 F Pulse Rate 65 90 Respiratory Rate 19 17 Blood Pressure 117/88 89/64 L Pulse Oximetry 100 95 95 Oxygen Delivery Nasal Cannula Oxygen Flow Rate 2 Fraction of Inspired Oxygen 09/05/24 00:00 09/05/24 00:00 09/05/24 02:00 Temperature 98.4 F Pulse Rate 88 97 81 Respiratory Rate 18 Blood Pressure 116/71 Pulse Oximetry 100 Oxygen Delivery Oxygen Flow Rate Fraction of Inspired Oxygen 09/05/24 03:37 09/05/24 04:00 09/05/24 04:00 Temperature 98.0 F Pulse Rate 88 85 Respiratory Rate 17 Blood Pressure 156/46 H Pulse Oximetry 100 100 Oxygen Delivery Nasal Cannula Oxygen Flow Rate 2 Fraction of Inspired Oxygen 09/05/24 06:00 09/05/24 07:57 Temperature 97.6 F Pulse Rate 82 81 Respiratory Rate 20 Blood Pressure 91/77 L Pulse Oximetry 93 Oxygen Delivery Oxygen Flow Rate Fraction of Inspired Oxygen Intake/Output Intake/Output: Intake & Output 09/02/24 09/03/24 09/04/24 09/05/24 23:59 23:59 23:59 23:59 Intake Total 550 Output Total 450 Balance 550 -450 Meds/Results Medications: Active Medications Generic Name Dose Route Start Last Admin Trade Name Freq PRN Reason Stop Dose Admin Acetaminophen 1,000 mg 09/05/24 09:55 Acetaminophen 500 Mg Tablet PO Q6H PRN pain Hydrocodone Bitart/Acetaminophen 1 tab 09/05/24 09:55 Hydrocodone/Acetaminophen (*Crx) 5-325 Mg Tablet PO TID PRN pain Allopurinol 300 mg 09/06/24 09:00 Allopurinol 300 Mg Tablet PO DAILY [facility] Apixaban 5 mg 09/05/24 17:00 Apixaban 5 Mg Tablet PO BID [facility] Bumetanide 1 mg 09/04/24 21:35 09/05/24 09:33 Bumetanide Inj 1 Mg/4 Ml Vial IV PUSH Not Given BID GIOVANI Doxepin HCl 10 mg 09/05/24 21:00 Doxepin Hcl 10 Mg Capsule PO QHS [facility] Fluticasone Propionate 2 spray 09/05/24 09:55 Fluticasone Propionate 0.05% Na Spr 16 Gm Btl (*Bkc) NASAL DAILY PRN nasal congestion Cefepime HCl 1 gm in 50 mls @ 100 mls/hr 09/05/24 20:00 Maxipime 1 Gm/Ns 50 Ml IVPB Q24H [facility] Levothyroxine Sodium 150 mcg 09/06/24 09:00 Levothyroxine Sodium 150 Mcg Tablet PO DAILY [facility] Miconazole Nitrate 1 applic 09/04/24 21:00 09/05/24 09:34 Miconazole Nitrate 2% Cream 30 Gm Tube TOPICAL 1 applic Q12HR GIOVANI Administration Montelukast Sodium 10 mg 09/05/24 09:55 Montelukast Sodium 10 Mg Tablet PO DAILY PRN sinus symptoms Multivitamins Therapeutic 1 tablet 09/06/24 09:00 Multivitamins Therapeutic Tab (*Bkc) PO DAILY [facility] Non-Formulary Medication 325 mg 09/06/24 09:00 Ferrous Sulfate [Feosol] PO 10/06/24 08:59 DAILY GIOVANI Non-Formulary Medication 1,000 mcg 09/05/24 10:00 Mecobalamin (Vitamin B12) [B12 Active] PO 10/05/24 09:59 .q.o.d GIOVANI Non-Formulary Medication 10 mg 09/05/24 09:55 Cetirizine [Zyrtec] PO DAILY PRN allergy symptoms Perflutren Lipid Microsphere 0 ml 09/04/24 21:37 Perflutren Lipid Microspheres 1.5 Ml Vial Diluted To 10 Ml Total Volume IV PUSH 09/07/24 21:37 ONCE PRN adequate visualization Protocol Sodium Bicarbonate 650 mg 09/05/24 09:55 Sodium Bicarbonate Tab 650 Mg Tablet PO BID [facility] Vancomycin HCl 1 each 09/04/24 17:22 Vancomycin For Acute Kidney Injury IVPB PRN PRN Vancomycin Protocol Radiology Results: ITS Impressions Chest X-Ray 09/04/24 15:09 IMPRESSION: Cardiomegaly with congestive santiago. Bilateral interstitial thickening suggestive of pulmonary edema versus pneumonitis. Clinical correlation and follow-up advised Chest/Abdomen/Pelvis CT 09/04/24 16:30 IMPRESSION: CHEST: 1. Moderate right pleural effusion and mild left with adjacent atelectatic changes. 2. Mediastinal lymphadenopathy ABDOMEN/PELVIS: 1. No evidence of appendicitis, diverticulitis or intestinal obstruction. 2. Bilateral renal soft tissue densities most likely cysts. Ultrasound evaluation advised. Large soft tissue density also seen between the left kidney and the spleen which may be an exophytic renal cyst. Ultrasound evaluation advised. 3. Constipation . Edema in the subcutaneous tissues which may indicate inflammatory changes versus volume overload. Labs Labs: Laboratory Results - last 24 hr 09/04/24 09/04/24 09/04/24 14:58 15:35 17:19 WBC 25.0 H RBC 2.40 L Hgb 7.8 L Hct 24.9 L MCV 103.8 H MCH 32.5 MCHC 31.3 L RDW 17.2 H Plt Count 331 MPV 9.6 Immature Gran % (Auto) Not Reportable Neut % (Auto) Not Reportable Lymph % (Auto) Not Reportable Lamb % (Auto) Not Reportable Eos % (Auto) Not Reportable Baso % (Auto) Not Reportable Lymph # (Auto) Not Reportable Lamb # (Auto) Not Reportable Eos # (Auto) Not Reportable Baso # (Auto) Not Reportable Abs Immat Gran (auto) Not Reportable Absolute Neuts (auto) Not Reportable Absolute Nucleated RBC Not Reportable Total Counted 100 Neutrophils % (Manual) 95 H Band Neutrophils % 0 Lymphocytes % (Manual) 2.0 L Monocytes % (Manual) 2 L Eosinophils % (Manual) 1 Nucleated RBC % Not Reportable Abs Neuts (Manual) 23.75 H Abs Lymphs (Manual) 0.50 L Abs Monocytes (Manual) 0.50 Absolute Eos (Manual) 0.25 Platelet Estimate Adequate Clumped Platelets Present Polychromasia 1+ Hypochromasia 1+ Anisocytosis 2+ Schistocytes None seen PT 29.6 H INR 2.8 APTT 51.6 H Puncture Site Right radial ABG pH 7.236 L* ABG pCO2 34.7 L ABG pO2 55.2 L ABG PO2/FiO2 Ratio 2.63 ABG HCO3 14.4 L ABG O2 Saturation 83.6 L* ABG O2 Content 10.0 L ABG Base Excess -12.0 A-a Gradient 53.0 Oxyhemoglobin 83.1 L* Carboxyhemoglobin Methemoglobin Reduced Hemoglobin Total Hemoglobin 8.5 L O2 Delivery Device Not Reportable O2 Liters/Min Not Reportable FiO2 21 Sodium 135 L Potassium 4.1 Chloride 107 Carbon Dioxide 15 L Anion Gap 13 H BUN 101 H D Creatinine 6.41 H Estim Creat Clear Calc 12 Estimated GFR 8 L Glucose 115 H Lactic Acid Calcium 6.9 L Magnesium Total Bilirubin 0.4 AST 29 ALT 22 Alkaline Phosphatase 135 H Troponin I 0.058 H* NT-Pro-B Natriuret Pep 94136 H Total Protein 6.0 L Albumin 2.6 L Procalcitonin Urine Color Yellow Urine Appearance Cloudy H Urine pH 5.0 Ur Specific [place] 1.019 Urine Protein 4+ H Urine Glucose (UA) Negative Urine Ketones Negative Ur Blood (Man) 1+ H Urine Nitrate Negative Urine Bilirubin Negative Urine Urobilinogen 0.2 Leukocyte Esterase Rfl Negative Urine RBC 0-2 Urine WBC 0-5 Ur Squamous Epith Cells None seen Urine Bacteria None seen Urine Casts 3-5 Nasal MRSA (PCR) Hep Bs Antigen Hep Bs Antibody 09/04/24 09/04/24 09/05/24 17:37 23:11 03:12 WBC RBC Hgb Hct MCV MCH MCHC RDW Plt Count MPV Immature Gran % (Auto) Neut % (Auto) Lymph % (Auto) Lamb % (Auto) Eos % (Auto) Baso % (Auto) Lymph # (Auto) Lamb # (Auto) Eos # (Auto) Baso # (Auto) Abs Immat Gran (auto) Absolute Neuts (auto) Absolute Nucleated RBC Total Counted Neutrophils % (Manual) Band Neutrophils % Lymphocytes % (Manual) Monocytes % (Manual) Eosinophils % (Manual) Nucleated RBC % Abs Neuts (Manual) Abs Lymphs (Manual) Abs Monocytes (Manual) Absolute Eos (Manual) Platelet Estimate Clumped Platelets Polychromasia Hypochromasia Anisocytosis Schistocytes PT INR APTT Puncture Site ABG pH ABG pCO2 ABG pO2 ABG PO2/FiO2 Ratio ABG HCO3 ABG O2 Saturation ABG O2 Content ABG Base Excess A-a Gradient Oxyhemoglobin Carboxyhemoglobin Methemoglobin Reduced Hemoglobin Total Hemoglobin O2 Delivery Device O2 Liters/Min FiO2 Sodium 134 L Potassium 4.2 Chloride 108 H Carbon Dioxide 12 L Anion Gap 14 H BUN 103 H Creatinine 6.36 H Estim Creat Clear Calc 12 Estimated GFR 9 L Glucose 99 Lactic Acid 1.1 Calcium 6.9 L Magnesium 2.0 Total Bilirubin 0.3 AST 27 ALT 21 Alkaline Phosphatase 121 Troponin I 0.064 H* 0.062 H* NT-Pro-B Natriuret Pep Total Protein 6.0 L Albumin 2.6 L Procalcitonin Urine Color Urine Appearance Urine pH Ur Specific [place] Urine Protein Urine Glucose (UA) Urine Ketones Ur Blood (Man) Urine Nitrate Urine Bilirubin Urine Urobilinogen Leukocyte Esterase Rfl Urine RBC Urine WBC Ur Squamous Epith Cells Urine Bacteria Urine Casts Nasal MRSA (PCR) Not detected Hep Bs Antigen Negative Hep Bs Antibody Negative 09/05/24 09/05/24 05:19 05:30 WBC 21.2 H RBC 2.30 L Hgb 7.6 L Hct 24.5 L MCV 106.5 H MCH 33.0 MCHC 31.0 L RDW 17.3 H Plt Count 311 MPV 10.0 Immature Gran % (Auto) Not Reportable Neut % (Auto) Not Reportable Lymph % (Auto) Not Reportable Lamb % (Auto) Not Reportable Eos % (Auto) Not Reportable Baso % (Auto) Not Reportable Lymph # (Auto) Not Reportable Lamb # (Auto) Not Reportable Eos # (Auto) Not Reportable Baso # (Auto) Not Reportable Abs Immat Gran (auto) Not Reportable Absolute Neuts (auto) Not Reportable Absolute Nucleated RBC Not Reportable Total Counted 100 Neutrophils % (Manual) 94 H Band Neutrophils % Not Reportable Lymphocytes % (Manual) 4 L Monocytes % (Manual) 1 L Eosinophils % (Manual) 1 Nucleated RBC % Not Reportable Abs Neuts (Manual) Abs Lymphs (Manual) 0.84 L Abs Monocytes (Manual) 0.21 Absolute Eos (Manual) 0.21 Platelet Estimate Adequate Clumped Platelets Polychromasia 1+ Hypochromasia 1+ Anisocytosis 2+ Schistocytes None seen PT INR APTT Puncture Site Left radial ABG pH 7.205 L* ABG pCO2 39.4 ABG pO2 77.6 L ABG PO2/FiO2 Ratio 2.77 ABG HCO3 15.2 L ABG O2 Saturation 92.7 L ABG O2 Content 10.6 L ABG Base Excess -11.8 A-a Gradient 75.6 Oxyhemoglobin 92.3 Carboxyhemoglobin 1.1 Methemoglobin 0.1 Reduced Hemoglobin 6.5 H Total Hemoglobin 8.1 L O2 Delivery Device Nasal cannula O2 Liters/Min Not Reportable FiO2 28 Sodium Potassium Chloride Carbon Dioxide Anion Gap BUN Creatinine Estim Creat Clear Calc Estimated GFR Glucose Lactic Acid Calcium Magnesium Total Bilirubin AST ALT Alkaline Phosphatase Troponin I NT-Pro-B Natriuret Pep Total Protein Albumin Procalcitonin 0.5 Urine Color Urine Appearance Urine pH Ur Specific [place] Urine Protein Urine Glucose (UA) Urine Ketones Ur Blood (Man) Urine Nitrate Urine Bilirubin Urine Urobilinogen Leukocyte Esterase Rfl Urine RBC Urine WBC Ur Squamous Epith Cells Urine Bacteria Urine Casts Nasal MRSA (PCR) Hep Bs Antigen Hep Bs Antibody
[2024-09-05] MEDS: allopurinoL 300 MG TABLET PO (13:13)
[2024-09-05] MEDS: SODIUM BICARBONATE TAB 650 MG TABLET PO ×2 (13:13→16:13)
--- NOTE | 2024-09-05 14:01 | P.CONNP_ITS ---
Assessment and Plan Assessment and plan (1) Stage 5 chronic kidney disease: Code(s): N18.5 - Chronic kidney disease, stage 5 Status: Chronic (2) Anasarca: Code(s): R60.1 - Generalized edema Status: Acute (3) Shortness of breath: Code(s): R06.02 - Shortness of breath Status: Acute (4) Anemia: Code(s): D64.9 - Anemia, unspecified Status: Chronic (5) Monoclonal gammopathy: Code(s): D47.2 - Monoclonal gammopathy Status: Chronic (6) Obstructive sleep apnea: Code(s): G47.33 - Obstructive sleep apnea (adult) (pediatric) Status: Chronic (7) Chronic atrial fibrillation: Code(s): I48.20 - Chronic atrial fibrillation, unspecified Status: Acute (8) Leukocytosis: Code(s): D72.829 - Elevated white blood cell count, unspecified Status: Acute Plan Sanjeev has advanced chronic kidney disease which has clearly deteriorated the last few months as noted by the trend of his labs. Unfortunately, this is now complicated by volume overload/ anasarca in conjunction with worsening metabolic acidosis, shortness of breath, and anemia. Given his elevated BUN, there may also be a component of uremia playing a role as well. IV diuretics have been initiated put he has not had a significant improvement in his overall clinical status. In the past, I had discussed with him doing a renal biopsy in effort to see if there were some reversible component to his kidney disease but this point, I am not sure that it will really change underlying management at this point time. It would seem that conservative therapy with medications in IV diuretics is of limited response and I suspect that the next intervention to be considered would be renal replacement therapy / dialysis. I had a fairly long and lengthy discussion (greater than 25 minutes) with the patient as well as his daughters at bedside regarding the option dialysis. It would seem that the patient as well as his family has already done some research on this subject when I last saw him in the office and I furthered answered their questions about the procedure of dialysis, the risks, benefits, the pros, cons, and possible associated complications that come with this therapeutic intervention. They all appeared to voice understanding but the patient does not seem to be interested in pursuing dialysis as a treatment option as he believes that this will not change his quality of life which has progressively worsened in the last few months in conjunction with his renal dysfunction. His family at bedside agree that his quality of life has progressively deteriorated due to his multitude of medical issues and problems not to mention his renal dysfunction as well. It would seem that the patient as well as his family seem to be more inclined to proceed with comfort care measures/ palliative care/hospice rather than pursue ongoing aggressive medical therapy which seems to be a reasonable choice as I cannot guarantee that even dialysis would improve his quality of life with regard to his physical deconditioning, shortness of breath, and ongoing issues/ problems fluid retention/swelling/ edema. I believe care coordination has already reached out to hospice to discuss this option with him and his family already. At this point, in conjunction with the patient's wishes, I would continue therapy more geared towards improving his comfort and will not pursue any further invasive therapies with regard to his renal dysfunction. I will sign off for now since the patient has made the decision to proceed with comfort care/hospice but do not hesitate to call me if questions arise... L History of Present Illness Reason for Consult Consult date: 09/05/24 Reason for consult: acute renal failure (on chronic kidney disease versus progression of CKD) Chief Complaint Chief complaint: Kidney failure History of Present Illness Narrative: The patient is a 79-year-old male with a extensive past medical history as outlined below presented to [facility] Emergency Room with complaints of worsening shortness of breath. The patient states that his shortness of breath has been progressively getting worse and worse over last 2 weeks if not longer. This has been further complicated by increasing lower extremity swelling /edema which has also progressed and extended up to his hip and into his lower abdomen. He reports compliance with his diuretic therapy but states that his urine output has really picked up much or increased despite the use of it. He gave no complaints of fevers, chills, chest pain, nausea, vomiting abdominal pain, lightheadedness, dizziness, palpitations. Given these progression of symptoms as mentioned, he presented to the ER for further assessment. Workup evaluation emergency room demonstrated the patient to be hemodynamically stable although his blood pressure was on lower side of normal and in no acute distress other than his respiratory status. Routine testing demonstrated an elevated white blood cell count of 25, hemoglobin of 7.8 INR of 2.8, and an ABG with a pH is 7.2, pCO2 34, and PO2 of 50 on air. His chemistry panel showed normal electrolytes but with an elevated BUN 101, creatinine of 6.41 and a significant acidosis with a CO2 of 12. His chest x-ray showed evidence pulmonary vascular congestion and volume overload and a subsequent CT scan of chest/abdomen/pelvis demonstrated moderate right pleural effusion and interstitial edema but no other acute pathology. No clear source of infection was identified given his elevated white blood cell count but blood cultures were obtained given this concern. He was initiated on IV diuretic therapy due to his volume overload and anasarca but the concern was that given his advanced kidney disease as noted by admission labs he may require more further intervention in the renal replacement therapy / dialysis he was subsequently admitted to the further evaluation therapy. Since his admission, his breathing/ respiratory status appears about the same if not may be slightly better but clearly not at baseline. Renal consultation was requested due to his advanced chronic kidney disease. The patient is well known to me as I him in the office for management of his chronic kidney disease. Unfortunately, in the last several months, his renal dysfunction has been progressively getting worse despite all conservative therapy. When I last saw him in the office, I considered doing a renal biopsy in the hope that there may be some findings that would be reversible although I did discuss with the patient and his family at that time that it may not change the simple fact that his kidney function may continue to worsen and he may require renal replacement therapy/dialysis. His diuretics were adjusted in the hopes that this would optimize his fluid status but given his presentation to the ER yesterday, it would seem that this has failed to do that. Currently, at the time my evaluation, the patient is not in any acute distress sitting in bed but any attempts to ambulate or do any physical activity makes him more short of breath. His family was at bedside the time of my visit with him. Review of Systems 2 Review of Systems: As per HPI. [facility] Past Medical History Medical History Other hereditary and idiopathic neuropathies Gout Obstructive sleep apnea BPH with obstruction/lower urinary tract symptoms Testicular hypofunction Monoclonal gammopathy Hypothyroid Surgical History Surgical History History of total knee arthroplasty bilateral History of aortic valve replacement (2019) Family History Family History Mother Diabetes mellitus Sibling Diabetes mellitus Father Heart disease Social History Social History Smoking status: Never smoker Second hand tobacco smoke exposure: No Alcohol intake: current Drinks per week: 2 Alcohol use details: socially Substance use: never Substance use type: does not use Do You Feel Safe in your Home?: Yes Lack of Transportation: No Lack of Food: Never True Current Housing: I Have Housing Concerned About Future Housing: No Difficulty Paying Gas/Electric Bills: No Difficulty Paying for Meds: No Currently Unemployed: No Education: Bachelor's Degree Difficulty w/ Childcare or Family Care: No Living arrangements: with family Occupation/Education: retired 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 Gender identity (if verbalized by the patient): Male Sexual Orientation (if Verbalized by the Patient): Straight or Heterosexual Spiritual care concerns: No Agree to blood products: Yes Meds Home Medications and Allergies Home Medications ?Medication ?Instructions ?Recorded ?Confirmed ?Type bumetanide 1 mg tablet 1 mg PO QAM 06/08/21 09/05/24 History cetirizine 10 mg tablet (Zyrtec) 10 mg PO DAILY PRN allergy symptoms 06/08/21 09/05/24 History multivitamin (Daily Multi-Vitamin 1 tablet PO DAILY 06/08/21 09/05/24 History tablet) apixaban 5 mg tablet (Eliquis) 5 mg PO BID 08/03/22 09/05/24 History allopurinol 300 mg tablet 300 mg PO DAILY #90 tabs 04/29/24 09/05/24 Rx mecobalamin (vitamin B12) 1,000 1,000 mcg PO .q.o.d 05/07/24 09/05/24 History mcg chewable tablet (B12 Active) acetaminophen 500 mg tablet 1,000 mg PO Q6H PRN pain 06/27/24 09/05/24 History (Tylenol Extra Strength) ferrous sulfate 325 mg (65 mg 325 mg PO DAILY 06/27/24 09/05/24 History iron) tablet (Feosol) fluticasone propionate 50 2 spray intranasal DAILY PRN nasal 06/27/24 09/05/24 History mcg/actuation nasal congestion spray,suspension montelukast 10 mg tablet 10 mg PO DAILY PRN sinus symptoms 06/27/24 09/05/24 History levothyroxine 150 mcg tablet 150 mcg PO DAILY #90 tabs 07/10/24 09/05/24 Rx (Levoxyl) doxepin 10 mg capsule 10 mg PO QHS #90 caps 08/16/24 09/05/24 Rx hydrocodone 5 mg-acetaminophen 325 1 tablet PO TID PRN pain #30 tabs 08/16/24 09/05/24 Rx mg tablet Allergies Allergy/AdvReac Type Severity Reaction Status Date / Time No Known Allergies Allergy Verified 07/18/24 09:48 Vital Signs Vital Signs Temp Pulse Resp BP Pulse Ox O2 Del Method O2 Flow Rate 09/05/24 14:00 97.6 F 91 20 137/69 96 09/05/24 12:00 97.6 F 94 20 101/54 L 100 Nasal Cannula 2 09/05/24 10:00 94 09/05/24 08:00 89 09/05/24 08:00 93 Nasal Cannula 2 09/05/24 07:57 97.6 F 81 20 91/77 L 93 09/05/24 06:00 82 09/05/24 04:00 85 09/05/24 04:00 100 Nasal Cannula 2 09/05/24 03:37 98.0 F 88 17 156/46 H 100 09/05/24 02:00 81 09/05/24 00:00 97 09/05/24 00:00 98.4 F 88 18 116/71 100 09/05/24 00:00 95 Nasal Cannula 2 09/04/24 23:00 98.3 F 90 17 89/64 L 95 09/04/24 22:30 65 19 117/88 100 09/04/24 19:25 100 18 110/58 L 100 09/04/24 18:48 83 20 116/63 97 09/04/24 17:48 102/78 09/04/24 17:42 92 20 100 09/04/24 17:01 85 17 99/79 L Exam 2 Narrative: GENERAL APPEARANCE: frail and elderly male in no acute distress HEENT: normocephalic, atraumatic, pallor to conjunctiva and sclera, nares patient NECK: no lymphadenopathy, thyromegaly, or JVD MOUTH: normal lips, teeth, and gums CARDIOVASCULAR: RRR, normal S1 and S2, no rub RESPIRATORY: coarse with bibasilar crackles ABDOMEN: obese but soft, nontender, nondistended, positive bowel sounds present EXTREMITIES: no evidence of cyanosis, clubbing, 3+ edema up to hips (anasarca) NEUROLOGICAL: alert and oriented x 3; CN II - XII intact bilaterally; no focal deficits noted Results Lab Results 09/06/24 04:03 09/06/24 04:03 Lab results: Most recent lab results ABG pH 7.205 (7.350-7.450) L* 09/05/24 05:30 ABG pCO2 39.4 mmHg (35.0-45.0) 09/05/24 05:30 ABG pO2 77.6 mmHg (80.0-100.0) L 09/05/24 05:30 ABG HCO3 15.2 mEq/l (22.0-26.0) L 09/05/24 05:30 ABG O2 Saturation 92.7 % (95.0-100.0) L 09/05/24 05:30 Calcium 6.9 mg/dL (8.4-10.2) L 09/05/24 03:12 Magnesium 2.0 mg/dL (1.6-2.3) 09/05/24 03:12
[2024-09-05] MEDS: APIXABAN 2.5 MG TABLET PO (16:14)
[2024-09-05 21:19] LABS: Vancomycin Random 11.4 ug/mL (10-20)
[2024-09-05] MEDS: CEFEPIME 1 GM/NS 50 ML 1 GM/50 ML BAG IVPB (21:20)
[2024-09-05] MEDS: DOXEPIN HCL 10 MG CAPSULE PO (21:20)
[2024-09-05] MEDS: VANCOMYCIN 2,000 MG/NS 500 ML 2,000 MG/500 ML BAG 250 MG IVPB (22:33)
[2024-09-06] MEDS: HYDROcodone/acetaminophen (*CRX) 5-325 MG TABLET 1 TAB PO ×2 (02:10→13:33)
[2024-09-06 03:28] VITALS: BP 70/53; PULSE 97; RESP 18; TEMP 36.6; O2SAT 91
[2024-09-06 04:23] LABS: Hematocrit 23.8 % (42.0-52.0); Hemoglobin 7.4 g/dL (14.0-18.0); Mean Corpuscular HGB Conc 31.1 g/dl (32-36); Mean Corpuscular Hemoglobin 33.2 pg (26-34); Mean Corpuscular Volume 106.7 fl (80-100); Mean Platelet Volume 10.1 fl (7.4-10.4); Platelet Count Result 303 k/mm3 (150-375); Red Blood Count 2.23 M/mm3 (4.6-6.20); Red Cell Distribution Width 17.5 % (11.5-14.5); White Blood Count 18.9 K/mm3 (4.5-10.0)
[2024-09-06 04:27] VITALS: BP 88/52
[2024-09-06 04:41] LABS: Alanine Aminotransferase 17 U/L (6-50); Albumin Level 2.4 g/dL (3.5-5.1); Alkaline Phosphatase 116 U/L (38-126); Anion Gap 12 mmol/L (4-12); Aspartate Amino Transferase 23 U/L (17-59); Bilirubin,Total 0.4 mg/dL (0.2-1.3); Blood Urea Nitrogen 101 mg/dL (9-20); Calcium 6.7 mg/dL (8.4-10.2); Carbon Dioxide 15 mmol/L (22-30); Chloride 105 mmol/L (98-107); Estimated CRCL calculation 13 ml/min; Estimated Glomerular Filt Rate 9; Glucose 106 mg/dL (65-110); Magnesium 1.9 mg/dL (1.6-2.3); Potassium 4.4 mmol/L (3.4-5.0); Sodium 132 mmol/L (137-145)
[2024-09-06 04:57] LABS: Total Cells Counted 100
[2024-09-06 04:58] LABS: Band Neutrophils Percent 2 % (0-6); Eosinophils Absolute Manual 0.18 K/mm3 (0.02-0.50); Eosinophils Percent Manual 1 % (0-4); Lymphocytes Absolute Manual 0.56 K/mm3 (1.1-4.5); Lymphocytes Percent Manual 3 % (18-44); Monocytes Absolute Manual 0.56 K/mm3 (0.1-0.90); Monocytes Percent Manual 3 % (3-9); Neutrophils Absolute Manual 17.57 K/mm3 (1.3-6.7); Neutrophils Percent Manual 91 % (46-73)
[2024-09-06 04:59] LABS: Anisocytosis 1+; Burr Cells 1+; Hypochromasia 1+; Ovalocytes 1+; Platelet Estimate Adequate (Adequate); Schistocytes None Seen
[2024-09-06 05:24] LABS: Hepatitis B Core Ab Total NON-REACTIVE (NON-REACTIVE)
[2024-09-06] MEDS: LEVOTHYROXINE SODIUM 150 MCG TABLET PO (06:05)
[2024-09-06 08:00] VITALS: BP 116/64; PULSE 84; RESP 24; TEMP 36.4; O2SAT 91; O2SAT 94
[2024-09-06] MEDS: allopurinoL 300 MG TABLET PO (10:09)
[2024-09-06] MEDS: BUMETANIDE INJ 1 MG/4 ML VIAL IV PUSH (10:09)
[2024-09-06] MEDS: CYANOCOBALAMIN 1,000 MCG TABLET 1000 MCG PO (10:09)
[2024-09-06] MEDS: ACETAMINOPHEN 500 MG TABLET 1000 MG PO ×2 (10:09→16:20)
[2024-09-06] MEDS: SODIUM BICARBONATE TAB 650 MG TABLET PO ×2 (10:09→16:20)
[2024-09-06] MEDS: APIXABAN 2.5 MG TABLET PO ×2 (10:09→16:20)
[2024-09-06] MEDS: MULTIVITAMINS THERAPEUTIC TAB (*BKC) 1 TABLET PO (10:09)
[2024-09-06] MEDS: FERROUS SULFATE 325 MG TABLET DR BY MOUTH (10:09)
[2024-09-06] MEDS: MICONAZOLE NITRATE 2% CREAM 30 GM TUBE 1 APPLIC TOPICAL (10:10)
[2024-09-06] MEDS: polyethylene glycoL 3350 17 GM POWD.PACK PO (10:10)
[2024-09-06 12:00] VITALS: BP 118/71; PULSE 92; RESP 22; TEMP 36.6; O2SAT 91
--- NOTE | 2024-09-06 12:52 | P.PNIM_ITS ---
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 Patient sees Dr. Ortiz Nephrology. They discussed doing a renal biopsy but this was not done yet. The patient is on Eliquis. Last seen Nephrology on 07/18/2024 at which time his CKD was noted to be worsening. At this time he had already had increased leg swelling and shortness of breath for a month or so. Since then it has become progressively worsened he presents to [facility] ER on 09/04/2024 severe shortness of breath and progressive swelling up to his hips and stomach now. ER workup reveals WBC 25, hemoglobin 7.8, INR 2.8, ABG 7.236, pCO2 34.7, PO2 55 on room air, bicarb 14.4. Patient was placed on 2 L nasal cannula and given Bumex 1 mg IV x1. He subsequently had good urine output and felt much better. He was also given vancomycin and cefepime as his WBC count was 25. However, no infectious etiology identified on CT abdomen chest pelvis without contrast. Moderate right pleural effusion and interstitial edema identified. Blood cultures were obtained. BNP 08476. Serum creatinine 6.41 up from 4.75 in July. Nephrology consulted from ER. Advised diuresis. Acute on chronic renal failure worsening over the past few months. Now with significant acidosis and anasarca. With leukocytosis also suspicious for underlying sepsis. No source identified so far. UA is negative. CT chest abdomen pelvis negative for any infectious source. Possible cellulitis/infectious source. On empiric antibiotics with vancomycin and cefepime. Continue on diuretics as ordered and as tolerated. Creatinine remains stable. Continue to monitor urine output. Added oral bicarbonate for metabolic acidosis. Patient not leaning towards going for dialysis. There certainly is an acute component to his kidney disease currently which could be related to sepsis. No extraordinary heroic measures wished by the patient and family. Patient decides on comfort measures and is having a hospice meeting this afternoon. Plan is to initiate hospice. Currently will continue as ordered. Discussed persistent acidosis and borderline hypotension. Wishes to be DNR. Elevated troponin however remains flat Elevated BNP is related to renal failure DVT prophylaxis Eliquis renally dose Code status do not resuscitate Subjective Date/time seen: 09/06/24 12:52 Interval history: No overnight events. Has some pain in his legs took some Barton which helped. Family at bedside. Awaiting meeting with hospice this afternoon. Review of Systems Review of Systems: All systems reviewed & are unremarkable except as noted in HPI and below (HPI) Exam Narrative: APPEARANCE: No apparent distress. alert and oriented x 3 Head: atraumatic. EYES: EOMI, NOSE: Atraumatic NECK: Trachea midline RESPIRATORY: Bibasilar crackles, speaking in full sentences, requiring 2 L CARDIOVASCULAR: RRR, pitting edema through the hips ABDOMINAL: Obese soft nontender MUSCULOSKELETAl: No obvious deformities NEURO: Alert. Moving 4/4 extremities SKIN:: Intertrigo of the pannus/groin PSYCHIATRIC: Normal affect Objective Data Vital Signs Vital Signs: Vital Signs - 24 hr 09/05/24 14:00 09/05/24 16:00 09/05/24 16:00 Temperature 97.6 F Pulse Rate 89 91 98 Respiratory Rate 20 Blood Pressure 137/69 Pulse Oximetry 96 Oxygen Delivery Oxygen Flow Rate 09/05/24 16:00 09/05/24 21:00 09/05/24 23:41 Temperature 98.2 F Pulse Rate 93 Respiratory Rate 18 Blood Pressure 130/87 Pulse Oximetry 93 96 92 Oxygen Delivery Nasal Cannula Nasal Cannula Oxygen Flow Rate 2 2 09/06/24 03:28 09/06/24 04:27 09/06/24 08:00 Temperature 97.8 F 97.6 F Pulse Rate 97 84 Respiratory Rate 18 24 H Blood Pressure 70/53 L 88/52 L 116/64 Pulse Oximetry 91 94 Oxygen Delivery Oxygen Flow Rate 09/06/24 12:00 Temperature 98 F Pulse Rate 92 Respiratory Rate 22 H Blood Pressure 118/71 Pulse Oximetry 91 Oxygen Delivery Oxygen Flow Rate Intake/Output Intake/Output: Intake & Output 09/03/24 09/04/24 09/05/24 09/06/24 23:59 23:59 23:59 23:59 Intake Total 550 1270 Output Total 800 200 Balance 550 470 -200 Meds/Results Medications: Active Medications Generic Name Dose Route Start Last Admin Trade Name Freq PRN Reason Stop Dose Admin Acetaminophen 1,000 mg 09/05/24 09:55 Acetaminophen 500 Mg Tablet PO Q6H PRN mild pain Hydrocodone Bitart/Acetaminophen 1 tab 09/05/24 09:55 09/06/24 02:10 Hydrocodone/Acetaminophen (*Crx) 5-325 Mg Tablet PO 1 tab TID PRN Administration moderate pain Allopurinol 300 mg 09/05/24 09:00 09/06/24 10:09 Allopurinol 300 Mg Tablet PO 300 mg DAILY GIOVANI Administration Apixaban 2.5 mg 09/05/24 17:00 09/06/24 10:09 Apixaban 2.5 Mg Tablet PO 2.5 mg BID GIOVANI Administration Bumetanide 1 mg 09/04/24 21:35 09/06/24 10:09 Bumetanide Inj 1 Mg/4 Ml Vial IV PUSH 1 mg BID GIOVANI Administration Cyanocobalamin 1,000 mcg 09/06/24 09:00 09/06/24 10:09 Cyanocobalamin 1,000 Mcg Tablet PO 1,000 mcg Q48H GIOVANI Administration Doxepin HCl 10 mg 09/05/24 21:00 09/05/24 21:20 Doxepin Hcl 10 Mg Capsule PO 10 mg QHS GIOVANI Administration Ferrous Sulfate 325 mg 09/06/24 09:00 09/06/24 10:09 Ferrous Sulfate [address] BY MOUTH 325 mg DAILY GIOVANI Administration Fluticasone Propionate 2 spray 09/05/24 09:55 Fluticasone Propionate 0.05% Na Spr 16 Gm Btl (*Bkc) NASAL DAILY PRN nasal congestion Cefepime HCl 1 gm in 50 mls @ 100 mls/hr 09/05/24 20:00 09/05/24 21:20 Maxipime 1 Gm/Ns 50 Ml IVPB 100 mls/hr Q24H GIOVANI Administration Levothyroxine Sodium 150 mcg 09/06/24 06:30 09/06/24 06:05 Levothyroxine Sodium 150 Mcg Tablet PO 150 mcg DAILY@0630 GIOVANI Administration Loratadine 10 mg 09/05/24 10:47 Loratadine 10 Mg Tablet PO QAM PRN allergy symptoms Miconazole Nitrate 1 applic 09/04/24 21:00 09/06/24 10:10 Miconazole Nitrate 2% Cream 30 Gm Tube TOPICAL 1 applic Q12HR GIOVANI Administration Montelukast Sodium 10 mg 09/05/24 09:55 Montelukast Sodium 10 Mg Tablet PO DAILY PRN sinus symptoms Multivitamins Therapeutic 1 tablet 09/06/24 09:00 09/06/24 10:09 Multivitamins Therapeutic Tab (*Bkc) PO 1 tablet DAILY GIOVANI Administration Perflutren Lipid Microsphere 0 ml 09/04/24 21:37 Perflutren Lipid Microspheres 1.5 Ml Vial Diluted To 10 Ml Total Volume IV PUSH 09/07/24 21:37 ONCE PRN adequate visualization Protocol Polyethylene Glycol 17 gm 09/06/24 09:00 09/06/24 10:10 Polyethylene Glycol 3350 17 Gm Powd.Pack PO 17 gm QAM GIOVANI Administration Sodium Bicarbonate 650 mg 09/05/24 10:15 09/06/24 10:09 Sodium Bicarbonate Tab 650 Mg Tablet PO 650 mg BID GIOVANI Administration Vancomycin HCl 1 each 09/04/24 17:22 Vancomycin For Acute Kidney Injury IVPB PRN PRN Vancomycin Protocol Radiology Results: ITS Impressions Chest X-Ray 09/04/24 15:09 IMPRESSION: Cardiomegaly with congestive santiago. Bilateral interstitial thickening suggestive of pulmonary edema versus pneumonitis. Clinical correlation and follow-up advised Chest/Abdomen/Pelvis CT 09/04/24 16:30 IMPRESSION: CHEST: 1. Moderate right pleural effusion and mild left with adjacent atelectatic changes. 2. Mediastinal lymphadenopathy ABDOMEN/PELVIS: 1. No evidence of appendicitis, diverticulitis or intestinal obstruction. 2. Bilateral renal soft tissue densities most likely cysts. Ultrasound evaluation advised. Large soft tissue density also seen between the left kidney and the spleen which may be an exophytic renal cyst. Ultrasound evaluation advised. 3. Constipation . Edema in the subcutaneous tissues which may indicate inflammatory changes versus volume overload. Labs Labs: Laboratory Results - last 24 hr 09/04/24 09/05/24 09/06/24 17:37 20:56 04:03 WBC 18.9 H RBC 2.23 L Hgb 7.4 L Hct 23.8 L MCV 106.7 H MCH 33.2 MCHC 31.1 L RDW 17.5 H Plt Count 303 MPV 10.1 Immature Gran % (Auto) Not Reportable Neut % (Auto) Not Reportable Lymph % (Auto) Not Reportable Grainger % (Auto) Not Reportable Eos % (Auto) Not Reportable Baso % (Auto) Not Reportable Lymph # (Auto) Not Reportable Grainger # (Auto) Not Reportable Eos # (Auto) Not Reportable Baso # (Auto) Not Reportable Abs Immat Gran (auto) Not Reportable Absolute Neuts (auto) Not Reportable Absolute Nucleated RBC Not Reportable Total Counted 100 Neutrophils % (Manual) 91 H Band Neutrophils % 2 Lymphocytes % (Manual) 3 L Monocytes % (Manual) 3 Eosinophils % (Manual) 1 Nucleated RBC % Not Reportable Abs Neuts (Manual) 17.57 H Abs Lymphs (Manual) 0.56 L Abs Monocytes (Manual) 0.56 Absolute Eos (Manual) 0.18 Platelet Estimate Adequate Hypochromasia 1+ Anisocytosis 1+ Ovalocytes 1+ Thee Cells 1+ Schistocytes None seen Sodium 132 L Potassium 4.4 Chloride 105 Carbon Dioxide 15 L Anion Gap 12 BUN 101 H Creatinine 6.13 H Estim Creat Clear Calc 13 Estimated GFR 9 L Glucose 106 Calcium 6.7 L Magnesium 1.9 Total Bilirubin 0.4 AST 23 ALT 17 Alkaline Phosphatase 116 Total Protein 5.0 L Albumin 2.4 L Random Vancomycin 11.4 Hep B Core Total Ab Non-reactive
[2024-09-06 16:42] VITALS: BP 112/42; PULSE 88; RESP 18; TEMP 36.3; O2SAT 96
--- NOTE | 2024-09-06 16:42 | PM.DS ---
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 Patient sees Dr. Ortiz Nephrology. They discussed doing a renal biopsy but this was not done yet. The patient is on Eliquis. Last seen Nephrology on 07/18/2024 at which time his CKD was noted to be worsening. At this time he had already had increased leg swelling and shortness of breath for a month or so. Since then it has become progressively worsened he presents to [facility] ER on 09/04/2024 severe shortness of breath and progressive swelling up to his hips and stomach now. ER workup reveals WBC 25, hemoglobin 7.8, INR 2.8, ABG 7.236, pCO2 34.7, PO2 55 on room air, bicarb 14.4. Patient was placed on 2 L nasal cannula and given Bumex 1 mg IV x1. He subsequently had good urine output and felt much better. He was also given vancomycin and cefepime as his WBC count was 25. However, no infectious etiology identified on CT abdomen chest pelvis without contrast. Moderate right pleural effusion and interstitial edema identified. Blood cultures were obtained. BNP 04100. Serum creatinine 6.41 up from 4.75 in July. Nephrology consulted from ER. Advised diuresis. Acute on chronic renal failure worsening over the past few months. Now with significant acidosis and anasarca. With leukocytosis also suspicious for underlying sepsis. No source identified so far. UA is negative. CT chest abdomen pelvis negative for any infectious source. Possible cellulitis/infectious source. On empiric antibiotics with vancomycin and cefepime. Continue on diuretics as ordered and as tolerated. Creatinine remains stable. Continue to monitor urine output. Added oral bicarbonate for metabolic acidosis. Patient not leaning towards going for dialysis. There certainly is an acute component to his kidney disease currently which could be related to sepsis. No extraordinary heroic measures wished by the patient and family. Patient decides on comfort measures and underwent hospice evaluation. Patient does to go home on hospice which was arranged. Elevated troponin however remains flat Elevated BNP is related to renal failure DVT prophylaxis Eliquis renally dose Code status do not resuscitate Time Spent with Patient Time attestation: Total time spent providing and/or coordinating discharge services: 35 minutes Exam Narrative: APPEARANCE: No apparent distress. alert and oriented x 3 Head: atraumatic. EYES: EOMI, NOSE: Atraumatic NECK: Trachea midline RESPIRATORY: Bibasilar crackles, speaking in full sentences, requiring 2 L CARDIOVASCULAR: RRR, pitting edema through the hips ABDOMINAL: Obese soft nontender MUSCULOSKELETAl: No obvious deformities NEURO: Alert. Moving 4/4 extremities SKIN:: Intertrigo of the pannus/groin PSYCHIATRIC: Normal affect DS: Data Data Completed and Pending Labs on day of discharge: Labs from last 24 hours 09/06/24 09/05/24 09/04/24 04:03 20:56 17:37 WBC 18.9 H RBC 2.23 L Hgb 7.4 L Hct 23.8 L MCV 106.7 H MCH 33.2 MCHC 31.1 L RDW 17.5 H Plt Count 303 MPV 10.1 Immature Gran % (Auto) Not Reportable Neut % (Auto) Not Reportable Lymph % (Auto) Not Reportable [place] % (Auto) Not Reportable Eos % (Auto) Not Reportable Baso % (Auto) Not Reportable Lymph # (Auto) Not Reportable [place] # (Auto) Not Reportable Eos # (Auto) Not Reportable Baso # (Auto) Not Reportable Abs Immat Gran (auto) Not Reportable Absolute Neuts (auto) Not Reportable Absolute Nucleated RBC Not Reportable Total Counted 100 Neutrophils % (Manual) 91 H Band Neutrophils % 2 Lymphocytes % (Manual) 3 L Monocytes % (Manual) 3 Eosinophils % (Manual) 1 Nucleated RBC % Not Reportable Abs Neuts (Manual) 17.57 H Abs Lymphs (Manual) 0.56 L Abs Monocytes (Manual) 0.56 Absolute Eos (Manual) 0.18 Platelet Estimate Adequate Hypochromasia 1+ Anisocytosis 1+ Ovalocytes 1+ [place] Cells 1+ Schistocytes None seen Sodium 132 L Potassium 4.4 Chloride 105 Carbon Dioxide 15 L Anion Gap 12 BUN 101 H Creatinine 6.13 H Estim Creat Clear Calc 13 Estimated GFR 9 L Glucose 106 Calcium 6.7 L Magnesium 1.9 Total Bilirubin 0.4 AST 23 ALT 17 Alkaline Phosphatase 116 Total Protein 5.0 L Albumin 2.4 L Random Vancomycin 11.4 Hep B Core Total Ab Non-reactive Preliminary micro results at discharge 09/04/24 17:38 Blood Culture - Preliminary Blood 09/04/24 19:33 Blood Culture - Preliminary Blood Imaging Radiologist's impression: ITS Impressions Chest X-Ray 09/04/24 15:09 IMPRESSION: Cardiomegaly with congestive santiago. Bilateral interstitial thickening suggestive of pulmonary edema versus pneumonitis. Clinical correlation and follow-up advised Chest/Abdomen/Pelvis CT 09/04/24 16:30 IMPRESSION: CHEST: 1. Moderate right pleural effusion and mild left with adjacent atelectatic changes. 2. Mediastinal lymphadenopathy ABDOMEN/PELVIS: 1. No evidence of appendicitis, diverticulitis or intestinal obstruction. 2. Bilateral renal soft tissue densities most likely cysts. Ultrasound evaluation advised. Large soft tissue density also seen between the left kidney and the spleen which may be an exophytic renal cyst. Ultrasound evaluation advised. 3. Constipation . Edema in the subcutaneous tissues which may indicate inflammatory changes versus volume overload. Discharge Plan Discharge Attending physician on discharge: Elder Nye Consulting providers: Danielle Ortiz Discharging Clinician: Elder Nye Anticipated Discharge Date/Time: 09/06/24 16:43 Patient Disposition: Hospice - Home Activity: as tolerated Diet: as tolerated, heart healthy and renal Patient Instructions: Chronic Kidney Disease (DC), Safe Use of Anticoagulants (DC) Patient Language: Serbian Stand Alone Forms: General Discharge Information Follow-up/Referrals: Chriss Jasso MD [Primary Care Provider] - 1 Week Discharge Medications: New sodium bicarbonate 650 mg Tablet 650 mg PO BID Qty: 30 0RF Continued mecobalamin (vitamin B12) [B12 Active] 1,000 mcg tablet,chewable 1,000 mcg PO .q.o.d hydrocodone-acetaminophen 5-325 mg tablet 1 tablet PO TID PRN (Reason: pain) Qty: 30 0RF doxepin 10 mg capsule 10 mg PO QHS Qty: 90 0RF cetirizine [Zyrtec] 10 mg tablet 10 mg PO DAILY PRN (Reason: allergy symptoms) multivitamin [Daily Multi-Vitamin] Tablet 1 tablet PO DAILY bumetanide 1 mg tablet 1 mg PO QAM ferrous sulfate [Feosol] 325 mg (65 mg iron) tablet 325 mg PO DAILY acetaminophen [Tylenol Extra Strength] 500 mg tablet 1,000 mg PO Q6H PRN (Reason: pain) montelukast 10 mg tablet 10 mg PO DAILY PRN (Reason: sinus symptoms) Rx Instructions: TAKE 1 TABLET BY MOUTH DAILY fluticasone propionate 50 mcg/actuation spray,suspension 2 spray intranasal DAILY PRN (Reason: nasal congestion) Rx Instructions: administer into each nostril allopurinol 300 mg tablet 300 mg PO DAILY Qty: 90 3RF levothyroxine [Levoxyl] 150 mcg tablet 150 mcg PO DAILY Qty: 90 2RF Changed Eliquis 5 mg tablet 2.5 mg PO BID Qty: 30 0RF Date of admission: 09/04/24 18:18 Primary Care Provider: Chriss Jasso Admitting Provider: Roxy Dc Attending physician on admission: Roxy Dc Condition: Stable
--- NOTE | 2024-09-06 16:59 | PC.NURSE ---
This patient, Sanjeev Arteaga Stemmler, was received from IMU on 09/06/24 at 1630. Patient/family oriented to unit policies and routines
== END 2024-09-06 18:09 | disposition hospice, home (50) | DRG 683 ==
LOC: ANHED 18:21 → ANHIMU 19:18 → ANH2MED 09-06 16:45 → ANHIMU 09-09 11:23
PROVIDERS: General Practice; Internal Medicine Nephrology; Admitting Provider Family Medicine; Emergency Provider Emergency Medicine; PCP Family Medicine Adolescent Medicine; Visit Provider Internal Medicine
DX: N17.9 Acute kidney failure, unspecified (principal); E87.20 Acidosis, unspecified; I48.20 Chronic atrial fibrillation, unspecified; N18.4 Chronic kidney disease, stage 4 (severe); I12.9 Hypertensive chronic kidney disease with stage 1 through stage 4 chronic kidney disease, or unspecified chronic kidney disease; D47.2 Monoclonal gammopathy; E87.70 Fluid overload, unspecified; E03.9 Hypothyroidism, unspecified; N40.0 Benign prostatic hyperplasia without lower urinary tract symptoms; G60.9 Hereditary and idiopathic neuropathy, unspecified; G47.33 Obstructive sleep apnea (adult) (pediatric); Z96.653 Presence of artificial knee joint, bilateral; Z95.2 Presence of prosthetic heart valve; Z79.01 Long term (current) use of anticoagulants; Z51.5 Encounter for palliative care
CPT/HCPCS: 36415; 36600; 71045; 71250; 74176; 80053; 80202; 81001; 82375; 82805; 83050; 83605; 83735; 83880; 84145; 84484; 85018; 85025; 85610; 85730; 86704; 86706; 87040; 87340; 87641; 93005; 96365; 96367; 96375; 99285; A9270; J0692; J1939; J3370